=== PATIENT | male | born 1965 | race Caucasian/White ===

== ENCOUNTER 2025-07-30 10:53 | Inpatient (IN) | payer MEDICAID, SELFPAY ==
[2025-07-30] VITALS (7 sets, daily range): BP systolic 139–175; BP diastolic 97–114; PULSE 93–119; RESP 18–24; TEMP 36.6–37.6; O2SAT 92–99; BMI 23.7
--- NOTE | 2025-07-30 11:03 | EKG_ITS ---
[facility] (Formerly [facility]) Test Date: 2025-07-30 Pat Name: IZABELA BAHENA Department: Room: - Gender: Male Transport Pilot: : 1965 Requested By: Lisa Sanchez Order Number: [id number] Reading MD: Lisa Sanchez Measurements Intervals [place] Rate: 107 P: 53 TX: 182 QRS: -75 QRSD: 150 T: -6 QT: 427 QTc: 570 Interpretive Statements SINUS TACHYCARDIA POSSIBLE LEFT ATRIAL ENLARGEMENT [-0.1mV P-WAVE IN V1/V2] RIGHT BUNDLE BRANCH BLOCK [120+ ms QRS DURATION, UPRIGHT V1, 40+ ms S IN I/aVL/V4/V5/V6] INFERIOR MYOCARDIAL INFARCTION , OF INDETERMINATE AGE [40+ ms Q WAVE AND/OR ST/T ABNORMALITY IN II/aVF] No previous ECG available for comparison /store/S0/[id number].pdf
--- NOTE | 2025-07-30 11:06 | PC.NURSE ---
sachin brother in law [phone] helen sister [phone]
[2025-07-30] MEDS: levETIRAcetam INJ 100 MG/ML VIAL 5ML 1000 MG IVP (11:21)
[2025-07-30 11:24] LABS: Basophils # (Auto) 0.1 Thou/mm3 (0.0-0.2); Basophils % (Auto) 1 % (0-2.5); Eosinophils # (Auto) 0.0 Thou/mm3 (0.0-0.5); Eosinophils % (Auto) 0 % (0-10); Hematocrit 43.7 % (41.0-53.0); Hemoglobin 15.4 g/dL (13.5-16.0); Immature Granulocytes Auto 0.01 Thou/mm3 (0.00-0.00); Lymphocytes # (Auto) 1.2 Thou/mm3 (1.0-4.8); Lymphocytes % (Auto) 24 % (10-50); Mean Corpuscular HGB Conc 35.2 g/dl (31.0-37.0); Mean Corpuscular Hemoglobin 33.7 pg (25.0-35.0); Mean Corpuscular Volume 96 fL (80-100); Monocytes # (Auto) 0.7 Thou/mm3 (0.0-0.8); Monocytes % (Auto) 13 % (0-12); Neutrophils # (Auto) 3.0 Thou/mm3 (1.8-7.7); Neutrophils % (Auto) 61 % (37-80); Nucleated Red Blood Cell # 0.00 Thou/mm3 (0.00-0.00); Nucleated Red Blood Cell % 0 /100 WBC (0); RDW Standard Deviation 46.3 fL (35.1-43.9); Red Blood Count 4.57 Miln/mm3 (4.50-5.90); White Blood Count 5.0 Thou/mm3 (3.8-10.6)
[2025-07-30 11:40] LABS: Alanine Aminotransferase 55 U/L (10-49); Albumin, Serum 4.5 gm/dL (3.5-5.0); Albumin/Globulin Ratio 0.9 (1.2-2.2); Alkaline Phosphatase 126 U/L (46-116); Anion Gap 19 (7-16); Aspartate Amino Transferase 111 U/L (0-34); BUN/Creatinine Ratio 16 Ratio (12-20); Bilirubin,Total 2.6 mg/dL (0.3-1.2); Blood Urea Nitrogen 11 mg/dL (9-23); Calcium 9.6 mg/dL (8.3-10.6); Calcium (Corrected) 9.6 mg/dL (8.5-10.1); Carbon Dioxide 19.7 mMol/L (20.0-31.0); Chloride 96 mMol/L (98-107); Creatinine (Component) 0.7 mg/dL (0.6-1.3); Estimated Creatinine Clearance 122.5 mL/min (>60); Globulin 4.9 gm/dL (2.3-3.5); Glucose 140 mg/dL (74-106); Osmolality,Calculated 271 (275-295); Potassium 3.4 mMol/L (3.4-5.1); Sodium 135 mMol/L (136-145); Total Protein 9.4 gm/dL (5.7-8.2); Troponin I < 0.020 ng/mL (0.0-0.045); eGFR > 60 See Note
[2025-07-30 11:41] LABS: Platelet Count 67 Thou/mm3 (140-440)
--- NOTE | 2025-07-30 12:35 | PD.EDSEIZ ---
ED Seizures RME/HPI General Chief Complaint: Seizure Stated Complaint: SEIZURE Time Seen by Provider: 07/30/25 11:00 Arrival date/time: 07/30/25 10:53 Limitations: no limitations RME / HPI RME / HPI Narrative: 60 year old male with known history of seizures with medication noncompliance who presents today after experiencing a breakthrough seizure. The seizure lasted approximately 2 minutes and was witnessed by the patient's sister. There was no reported head injury or trauma during the event. Following the seizure, the patient became confused and was found to have urinated on themselves, but there were no further complaints or signs of distress. Patient denies headache, chest pain, or any other associated symptoms. Related Data Allergies Allergy/AdvReac Type Severity Reaction Status Date / Time ibuprofen Allergy Intermediate Hives Verified 07/30/25 11:12 Review of Systems Review of Systems Systems Reviewed: All systems reviewed, normal except as documented Past Medical History Past Medical History NEUROLOGIC: Positive Seizures CARDIAC: Positive Hypertension; Negative Congestive Heart Failure RESPIRATORY: Negative Chronic Obstructive Pulmonary Disease (COPD) GENITOURINARY: Negative Renal Disease ENDOCRINE: Negative Diabetes Mellitus Type 1 or Diabetes Mellitus Type 2 Social History SMOKING STATUS: Never smoker ED Exam General Limitations: Present no limitations General appearance: Present alert and other (chronically ill appearing , mildly confused ) Head Head exam: Present atraumatic Eye Eye exam: Present normal appearance, PERRL and EOMI ENT ENT exam: Present normal oropharynx, mucous membranes moist and other (poor oral dentition ) Neck Neck exam: Present normal inspection, full ROM and trachea midline Chest Chest inspection: Present normal inspection and symmetric chest wall rise Respiratory Respiratory exam: Present normal lung sounds bilaterally Cardiovascular Cardiovascular exam: Present regular rate, normal rhythm and normal heart sounds Abdominal Exam Abdominal exam: Present soft and normal bowel sounds Extremities Exam Extremities exam: Present normal inspection and full ROM Back Exam Back exam: Present normal inspection and full ROM Neurological Exam Neurological exam: Present alert, CN II-XII intact and other (mildly confused however GCS of 15. ) Psychiatric Psychiatric exam: Present normal affect and normal mood Skin Skin exam: Present warm, dry, intact and normal color Course Quality Measures none Orders Category Date Time Status EKG (ED ONLY) *Do not use* NOW Care 07/30/25 11:03 Completed EKG (ED Only) Stat Exams 07/30/25 11:03 Draft US abdomen limited Stat Exams 07/30/25 14:09 Completed CBC Stat Lab 07/30/25 11:10 Completed CMP [Comprehensive Metabolic Panel] Stat Lab 07/30/25 11:10 Completed CMP [Comprehensive Metabolic Panel] Stat Lab 07/30/25 16:29 Completed Drug Screen,Urine Stat Lab 07/30/25 13:22 Completed Troponin I Stat Lab 07/30/25 11:10 Completed UA, C/S IF [Urinalysis, C/S if Indicated] Stat Lab 07/30/25 13:22 Completed Acetaminophen Tab [Tylenol Tab] Med 07/30/25 14:08 Discontinued 650 mg PO X1 ONE LORazepam [Ativan Inj] Med 07/30/25 18:19 Discontinued 2 mg IVP X1 ONE Ringers Lactated 1000 ml [Lactated Ringers] 1,000 ml Med 07/30/25 14:11 Discontinued IV 999 mls/hr levETIRAcetam INJ [Keppra Inj] Med 07/30/25 11:03 Discontinued 1,000 mg IVP X1 ONE levETIRAcetam INJ [Keppra Inj] Med 07/30/25 17:58 Discontinued 1,500 mg .ROUTE .STK-MED ONE levETIRAcetam INJ [Keppra Inj] Med 07/30/25 18:05 Discontinued 1,500 mg IVP X1 ONE Vital Signs Vital signs: Vital Signs Temperature 98 F 07/30/25 10:58 Pulse Rate 108 H 07/30/25 10:58 Respiratory Rate 18 07/30/25 10:58 Blood Pressure 175/109 H 07/30/25 10:58 Pulse Oximetry (%) 98 07/30/25 10:58 Oxygen Delivery Method Room Air 07/30/25 10:58 Pulse ox is 98% on room air which is adequate. Seizure MDM Narrative MDM Narrative:: Patient is a 60-year-old male is in the emergency department with concerns for breakthrough seizure. Vital signs and exam as listed. Concern for medication noncompliance, electrolyte derangement, less likely hypoglycemia given patient blood glucose check greater than 100. Labs without any acute hematologic abnormality, no leukocytosis, patient with anion gap of 19, bicarb 19.7 T. bili 2.6 AST 111 ALT 55 alk phos 1 26 will provide patient with fluids ordered right upper quadrant ultrasound patient without any abdominal pain. Patient is positive for benzodiazepines. After period of observation patient remained hemodynamically stable not in distress without any recurrence of symptoms the patient was discharged. As patient was being wheeled out of the emergency department started having another seizure. Patient was started onto a gurney patient did not hit his head. Patient was placed back in a resuscitation room, Keppra was ordered, in the resuscitation room patient had another tonic-clonic seizure however stopped on his own before benzodiazepines could be given. Patient received an additional 1500 mg of Keppra. Patient signed out to oncoming provider pending CT brain and safe dispo Patient data External records reviewed:: [facility] previous records Clinical information provided by:: patient Social determinants that could affect healthcare access:: none Patient has the following chronic illnesses:: seizures with medication noncompliance How is presenting disease/condition affected by chronic disease/condition?: exacerbated by Evaluation data The following diagnostics were reviewed and interpreted by me:: lab results, radiology exam(s) and EKG tracing(s) Lab and/or radiology exams considered but not ordered:: None Interpretation Summary: Ordering Physician: Lisa Macario MD Date of Service: 07/30/25 Procedure(s): US abdomen limited Accession Number(s): [id number] cc: Suresh Bonilla MD; NO PRIMARY/FAMILY,PHYSICIAN; Lisa Macario MD~ EXAMINATION: US abdomen limited ORDERING PROVIDER: Lisa Macario MD HISTORY: hyperbilirubinemia TECHNIQUE: Multiplanar still ultrasonography of the right upper quadrant was performed using grayscale imaging, supplemented by color and spectral Doppler as needed. Limited study due to poor acoustic windows. COMPARISON: None. FINDINGS: Liver: Diffusely increased echogenicity Gallbladder: Dependent echogenic material. No wall thickening or pericholecystic fluid. Biliary system: No biliary ductal dilatation. Common bile duct: 0.3 cm. Pancreas: No obvious pancreatic head mass. Limited evaluation due to poor acoustic windows. Vascular: Normal hepatopetal flow in the portal vein. Other: No ascites or mass. IMPRESSION: Gallbladder sludge without sonographic findings for cholelithiasis or acute cholecystitis. Diffusely increased echogenicity of the liver, nonspecific, but can be seen with hepatic steatosis and other hepatic pathologies. Dictated By: Suresh Bonilla MD Signed By: <Electronically signed by Suresh Bonilla MD in OV> 07/30/25 1607 Medications / Prescriptions Medications or Prescriptions considered but not ordered:: None Medication administrations:: Medication Administration History Discontinued Medications Acetaminophen (Acetaminophen 325 Mg Tablet) 650 mg PO X1 ONE Stop: 07/30/25 14:09 Last Admin: 07/30/25 14:51 Dose: 650 mg Documented By: EF Lactated Ringer's (Lactated Ringers) 1,000 mls @ 999 mls/hr IV .Q1H1M ONE Stop: 07/30/25 15:11 Last Infusion: 07/30/25 16:00 Dose: Infused Documented By: Admin: 07/30/25 14:51 Dose: 999 mls/hr Documented By: EF Levetiracetam (Levetiracetam Inj 100 Mg/Ml Vial 5ml) 1,000 mg IVP X1 ONE Stop: 07/30/25 11:04 Last Admin: 07/30/25 11:21 Dose: 1,000 mg Documented By: EF Levetiracetam (Levetiracetam Inj 100 Mg/Ml Vial 5ml) Confirm Administered Dose 1,500 mg .ROUTE .STK-MED ONE Stop: 07/30/25 17:59 Last Admin: 07/30/25 18:09 Dose: Not Given Documented By: GM Non-Admin Reason: Duplicate Medication on eMAR Levetiracetam (Levetiracetam Inj 100 Mg/Ml Vial 5ml) 1,500 mg IVP X1 ONE Stop: 07/30/25 18:06 Last Admin: 07/30/25 18:10 Dose: 1,500 mg Documented By: EF Lorazepam (Lorazepam 2 Mg/Ml Vial) 2 mg IVP X1 ONE Stop: 07/30/25 18:20 Last Admin: 07/30/25 18:26 Dose: 2 mg Documented By: EF See above Consultations Consultation(s) initiated? (list below): No Diagnosis Seizure Differential Diagnosis: intractable seizure disorder, generalized seizure and epileptic seizure Most likely diagnosis given after review of the tests above:: Epileptic seizure Admission Indicated Admission indicated?: not indicated Admission Request Was there a request for admission?: No Disposition Plan Disposition Plan: Discharge Discharge Attestation Discharge Attestation: The patient and all family members were given an opportunity to ask questions and understood the discharge instructions. Discharge instructions specifically effects, indications for sooner follow up or return to the emergency department, and the expected course of current diagnosis. Patient condition: Stable Discharge Plan Plan Patient Disposition: HOME (Self Care) Problem List Clinical Impression: Epileptic seizure Patient/Caregiver Discharge Instructions Education Materials: Discharge Instructions for Epilepsy Additional Instructions: It is important that you take your medications as prescribed. Follow-up with primary doctor within 1 to 2 days. I also recommend that you do follow-up with your neurologist. Return immediately if you have worsening symptoms or new symptoms of concern Print Language: Paraguayan Stand Alone Forms: Marissa Award Info., Patient Portal Info Letter
[2025-07-30 12:39] LABS: Slide Review Platelets confirmed
[2025-07-30 13:31] LABS: Collection Type, Urine Clean Catch
[2025-07-30 13:39] LABS: Bilirubin,Urine Negative (Negative); Blood,Urine 2+ (Negative); Clarity,Urine Clear (Clear/Hazy); Color,Urine Yellow (Lt Yel-Yel); Culture Indicated,Urine Not Indicated; Glucose, Urine Negative (Negative); Hyaline Casts,Urine < 1 /hpf (0-1); Ketones,Urine 1+ (Negative); Leukocyte Esterase,Urine Negative (Negative); Nitrite,Urine Negative (Negative); PH,Urine 7.0 (5.0-7.0); Protein,Urine 3+ (Neg - Trace); RBC,Urine 4 /hpf (0-3); Specific Gravity,Urine 1.027 (1.001-1.035); Squamous Epithelial Cell,Urine < 1 /hpf (0-5); Urobilinogen,Urine 2.0 mg/dL (0.0-1.0); WBC,Urine 3 /hpf (0-5)
[2025-07-30 14:00] LABS: Amphetamine/Methamp Scrn,U Negative (Negative); Barbiturate Screen,Urine Negative (Negative); Benzodiazepines Screen,Urine Positive (Negative); Benzoylecgonine Screen, Ur Negative (Negative); Fentanyl Screen,Urine Negative (Negative); Opiate Screen,Urine Negative (Negative); THC Screen,Urine Negative (Negative)
--- NOTE | 2025-07-30 14:09 | XR_ITS ---
EXAMINATION: US abdomen limited ORDERING PROVIDER: Lisa Macario MD HISTORY: hyperbilirubinemia TECHNIQUE: Multiplanar still ultrasonography of the right upper quadrant was performed using grayscale imaging, supplemented by color and spectral Doppler as needed. Limited study due to poor acoustic windows. COMPARISON: None. FINDINGS: Liver: Diffusely increased echogenicity Gallbladder: Dependent echogenic material. No wall thickening or pericholecystic fluid. Biliary system: No biliary ductal dilatation. Common bile duct: 0.3 cm. Pancreas: No obvious pancreatic head mass. Limited evaluation due to poor acoustic windows. Vascular: Normal hepatopetal flow in the portal vein. Other: No ascites or mass. IMPRESSION: Gallbladder sludge without sonographic findings for cholelithiasis or acute cholecystitis. Diffusely increased echogenicity of the liver, nonspecific, but can be seen with hepatic steatosis and other hepatic pathologies.
[2025-07-30] MEDS: RINGERS LACTATED 1000 ML 1,000 ML 999 ML IV (14:51)
[2025-07-30] MEDS: ACETAMINOPHEN 325 MG TABLET 650 MG PO (14:51)
[2025-07-30 16:58] LABS: Alanine Aminotransferase 51 U/L (10-49); Albumin, Serum 4.2 gm/dL (3.5-5.0); Albumin/Globulin Ratio 0.9 (1.2-2.2); Alkaline Phosphatase 114 U/L (46-116); Anion Gap 11 (7-16); Aspartate Amino Transferase 104 U/L (0-34); BUN/Creatinine Ratio 17 Ratio (12-20); Bilirubin,Total 2.6 mg/dL (0.3-1.2); Blood Urea Nitrogen 10 mg/dL (9-23); Calcium 9.2 mg/dL (8.3-10.6); Calcium (Corrected) 9.2 mg/dL (8.5-10.1); Carbon Dioxide 26.0 mMol/L (20.0-31.0); Chloride 95 mMol/L (98-107); Creatinine (Component) 0.6 mg/dL (0.6-1.3); Estimated Creatinine Clearance 142.9 mL/min (>60); Globulin 4.8 gm/dL (2.3-3.5); Glucose 116 mg/dL (74-106); Osmolality,Calculated 264 (275-295); Potassium 4.2 mMol/L (3.4-5.1); Sodium 132 mMol/L (136-145); Total Protein 9.0 gm/dL (5.7-8.2); eGFR > 60 See Note
--- NOTE | 2025-07-30 17:55 | PC.NURSE ---
patient was being discharged at this time. was walking patient to the bathroom prior and patient started having a tonic-clonic seizure patient was caught and brought down slowly the whole way down no trauma/fall or head injruy patient put back into room for further work up.
--- NOTE | 2025-07-30 18:09 | PC.NURSE ---
@1800 - PT APPEARED TO BE HAVING ANOTHER FULL BODY SEIZURE WITH SHAKING MOVEMENT ALL OVER HIS EXTREMITIES. SEIZURE LASTED ABOUT 30 SECONDS. PT ALREADY IN BED DURING TIME OF THIS SEIZURE. THIS RN CALLED FOR HELP. DR. ZAMUDIO CAME AT BEDSIDE. VERBAL ORDERS RECEIVED. PT HOOKED UP TO MONITORS.
[2025-07-30] MEDS: levETIRAcetam INJ 100 MG/ML VIAL 5ML 1500 MG IVP (18:10)
--- NOTE | 2025-07-30 18:23 | PD.EDADDENDU ---
Emergency Room Addendum Addendum Narrative: I took over the care from previous shift physician, Dr. Macario, at 6 PM on 07/30/2025. See previous notes for complete H & P and ED course. I reviewed all diagnostic test results. Diagnoses include: Recurrent seizures Alcohol withdrawal I discussed the case with our hospitalist. About the presentation and exam and diagnostics and treatments here. And need of further care in the hospital. Agreed to accept the patient. Herman Rae MD
[2025-07-30] MEDS: LORazepam 2 MG/ML VIAL IVP (18:26)
--- NOTE | 2025-07-30 18:28 | XR_ITS ---
Examination: CT brain head without contrast. 2-D sagittal coronal reconstructions Date and time of exam: July 30, 2025, 1905 hours INDICATIONS: Altered mental status today CTDI: vol (mGy): 54.2 DLP: (mGycm): 1101 Technique: Multiple CT axial sections of the brain have been obtained, 5 mm slice thickness. Contrast has not been administered. 2-D sagittal, coronal reconstructions have been obtained Low dose protocols were performed. One or more of the following dose reduction techniques were used; automated exposure control, adjustment of the mA and/or KV according to patient size, use of iterative reconstruction technique. Findings: Mild ventricular enlargement. Intra-axial or extra-axial hemorrhage density is not seen. No mass effect or midline shift Basal cisterns are not remarkable. Fourth ventricle is midline. Cranial vault intact. Impression: Negative for acute hemorrhage, mass effect or midline shift
[2025-07-30 22:23] LABS: Magnesium 1.9 mg/dL (1.6-2.6)
[2025-07-30] MEDS: Magnesium Sulfate 2 GM Ivpb 2 GM/50 ML BAG IV (22:39)
[2025-07-30 23:35] LABS: Bilirubin,Direct 0.9 mg/dL (0.0-0.3); Creatine Kinase 935 U/L (34-171); Troponin I 0.041 ng/mL (0.0-0.045)
[2025-07-30 23:52] LABS: D-Dimer 652 ng/mL (<600)
--- NOTE | 2025-07-30 23:58 | XR_ITS ---
Examination: CTA chest with intravenous contrast 2-D reconstructions 3-D reconstructions, vascular Date and time of exam: July 31, 2025, 0023 hours INDICATIONS: Chest pain shortness of breath beginning 2 days ago CTDI: vol (mGy) 11.3 DLP: (mGycm) 511 Technique: Multiple axial sections of the thorax have been obtained. 3 mm slice thickness, from below the hemidiaphragms to above the apices of the lungs. Mediastinal and lung density settings have been obtained. 2-D sagittal and coronal reconstructions. 3-D angiographic renderings, 3-D volume renderings, 3D post processing, vascular maximum intensity projections obtained. Contrast administered is 100 cc Isovue-370. Low dose protocols were performed. One or more of the following dose reduction techniques were used; automated exposure control, adjustment of the mA and/or KV according to patient size, use of iterative reconstruction technique. Findings: No thoracic aortic aneurysmal dilatation No pulmonary artery emboli No paratracheal tracheobronchial or bronchopulmonary adenopathy Mild enlargement cardiac contour Mildly dilated bronchi throughout the lung hightower Small retrocardiac gastric hernia No pneumonia or pulmonary edema Cirrhosis, liver nodular in contour Gallstones Distended gallbladder Spleen is not enlarged Esophageal varices Perigastric varices No hydronephrosis IMPRESSION: Negative for pulmonary artery emboli Mild bronchiectasis Cirrhosis Esophageal varices Cholelithiasis
[2025-07-31] VITALS (13 sets, daily range): BP systolic 118–146; BP diastolic 62–105; PULSE 83–115; RESP 13–96; TEMP 36.6–38.6; O2SAT 94–97; BMI 24.3
--- NOTE | 2025-07-31 00:09 | ESHP_ITS ---
Documentation for date of: 07/31/25 [facility] History of Present Illness History of present illness: Patient is a poor historian 60-year-old male with a known history of seizures and medication noncompliance presents after experiencing two tonic-clonic seizures today. The first occurred this morning while the patient was watching TV and standing up; he reports suddenly seizing for approximately 2 minutes, falling to the floor, and hitting his head. He also experienced nausea and vomiting (four episodes) prior to the seizure. The patient had a second seizure around 1:00 PM, lasting another 2 minutes. The event was witnessed by his sister Leydi, and postictally, he was confused and noted urinating on himself. Patient experienced shortness of breath for a period of time that self resolved. Since the seizures, he denies any further symptoms, including headache, chest pain, or distress. Spoke to sister Leydi who reports the patient is noncompliant with his antiseizure medication. Patient is unsure of the medication name, though he mentions seeing his neurologist, Dr. Sarkar, a few days ago. He was refilled for medications but has yet to pick them up. According to the sister, the patient has not driven himself to medical appointments in the last 3 weeks and has been living with her during this time; he had been homeless prior to this arrangement. ED course: Initial vitals in ED include T98, BP 175/109, HR 108, RR 18, O2 sat 98% room air. Notable labs include WBC within normal range, platelets 67, sodium 132, creatinine 0.6, T. bili 2.6, D bili 0.9, AST 104, ALT 51, CK 935, Trope negative, vitamin B12 802. Urine tox positive for benzo that was given in ED. D-DIMER 652. CTPA showed no evidence of pulmonary thromboembolism. In ED patient received a total of 2.5 g of Keppra, LR 1 L, 2 g of magnesium, lorazepam 2 mg IV. Past medical history: As stated above. Allergies: Ibuprofen (hives) Family history: Noncontributory. Social history: Drinks six pack of 24 ounces daily, no smoking, no illicit drug use. Patient admitted for epileptic seizures. Review of Systems Review of Systems Narrative Review of Systems: All systems reviewed negative unless stated otherwise above. Exam Vital Signs Temp Pulse Resp BP Pulse Ox O2 Del Method 99.7 F 113 H 24 H 149/99 H 93 L Room Air 07/30/25 23:00 07/30/25 23:54 07/30/25 23:54 07/30/25 23:54 07/30/25 23:54 07/30/25 23:54 Narrative Exam General: AOx2, no acute distress, able to speak full sentences HEENT: NC/AT, mucous membranes moist, bilateral sclera anicteric Cardiovascular: regular rate and rhythm, S1/S2 present, no murmurs appreciated Pulmonary: clear to auscultation bilaterally, no rales/rhonchi/wheezes Abdominal: soft, non-tender, mild distention, umbilical hernia, no rebound/guarding, normal bowel sounds present Musculoskeletal: normal ROM, no peripheral edema Skin: warm and dry, intact, no rashes, Neuro: CN II-XII intact, no focal deficits Results: Labs 07/31/25 04:50 07/31/25 04:50 Labs: Short CBC 07/30/25 Range/Units 11:10 WBC 5.0 (3.8-10.6) Thou/mm3 Hgb 15.4 (13.5-16.0) g/dL Hct 43.7 (41.0-53.0) % Plt Count 67 L (140-440) Thou/mm3 BMP 07/30/25 07/30/25 11:10 16:29 Sodium 135 L 132 L Potassium 3.4 4.2 D Chloride 96 L 95 L Carbon Dioxide 19.7 L 26.0 BUN 11 10 Creatinine 0.7 0.6 Glucose 140 H 116 H Calcium 9.6 9.2 Cardiac Enzymes 07/30/25 07/30/25 Range/Units 11:10 22:56 Total Creatine Kinase 935 H (34-171) U/L Troponin I < 0.020 0.041 (0.0-0.045) ng/mL Liver Function 07/30/25 07/30/25 07/30/25 Range/Units 11:10 16:29 22:56 Total Bilirubin 2.6 H 2.6 H (0.3-1.2) mg/dL Direct Bilirubin Cancelled 0.9 H AST 111 H 104 H (0-34) U/L ALT 55 H 51 H (10-49) U/L Alkaline Phosphatase 126 H 114 (46-116) U/L Albumin 4.5 4.2 (3.5-5.0) gm/dL Urine 07/30/25 Range/Units 13:22 Urine Color Yellow (Lt Yel-Yel) Urine Clarity Clear (Clear/Hazy) Urine pH 7.0 (5.0-7.0) Ur Specific [place] 1.027 (1.001-1.035) Urine Protein 3+ A (Neg - Trace) Urine Glucose (UA) Negative (Negative) Quality Measures Quality Measures VTE prophylaxis Medications Home Medications and Allergies Home Medications ?Medication ?Instructions ?Recorded ?Confirmed ?Type Unobtainable 07/30/25 07/30/25 History Allergies Allergy/AdvReac Type Severity Reaction Status Date / Time ibuprofen Allergy Intermediate Hives Verified 07/30/25 11:12 Visit Medications Enoxaparin Sodium (Enoxaparin Sod Inj 40 Mg/0.4 Ml Syringe) 40 mg SC QDAY KELLY Stop: 08/14/25 08:59 Folic Acid (Folic Acid Inj 1 Mg/0.2 Ml) 1 mg IVP QDAY KELLY Stop: 08/30/25 00:09 Ondansetron HCl (Ondansetron Inj 2 Mg/Ml Inj 2 Ml) 4 mg IVP Q6H PRN; Protocol PRN Reason: NAUSEA OR VOMITING Stop: 08/29/25 23:52 Thiamine HCl (Thiamine Inj 100 Mg/Ml Vial 2 Ml) 500 mg IVP X1 ONE Stop: 07/31/25 00:05 Discontinued Medications Acetaminophen (Acetaminophen 325 Mg Tablet) 650 mg PO X1 ONE Stop: 07/30/25 14:09 Last Admin: 07/30/25 14:51 Dose: 650 mg Diazepam (Diazepam Inj 5 Mg/Ml Vial 2 Ml) 10 mg IVP X1 ONE Stop: 07/31/25 00:01 Lactated Ringer's (Lactated Ringers) 1,000 mls @ 999 mls/hr IV .Q1H1M ONE Stop: 07/30/25 15:11 Last Infusion: 07/30/25 16:00 Dose: Infused Magnesium Sulfate (Magnesium Sulfate Ivpb) 2 gm in 50 mls @ 25 mls/hr IV X1 ONE Stop: 07/30/25 23:49 Last Infusion: 07/30/25 22:55 Dose: 25 mls/hr Levetiracetam (Levetiracetam Inj 100 Mg/Ml Vial 5ml) 1,000 mg IVP X1 ONE Stop: 07/30/25 11:04 Last Admin: 07/30/25 11:21 Dose: 1,000 mg Levetiracetam (Levetiracetam Inj 100 Mg/Ml Vial 5ml) 1,500 mg IVP X1 ONE Stop: 07/30/25 18:06 Last Admin: 07/30/25 18:10 Dose: 1,500 mg Lorazepam (Lorazepam 2 Mg/Ml Vial) 2 mg IVP X1 ONE Stop: 07/30/25 18:20 Last Admin: 07/30/25 18:26 Dose: 2 mg Assessment & Plan Plan 60-year-old male with a known history of seizures and medication noncompliance presents after experiencing two tonic-clonic seizures today. Patient admitted for epileptic seizures. #Seizures #History of epilepsy Patient unsure what medication he takes and is noncompliant with medication Experienced two tonic-clonic seizures today In ED patient received a total of 2.5 g of Keppra Plan ? Keppra 500 mg twice daily ? Lorazepam for breakthrough seizures ? Seizure precautions ? Aspiration precautions ? In-house neurology consulted ? EEG ordered #Alcohol withdrawal #Chronic alcohol use Drinks six pack of 24 ounces daily Alcohol level on admission pending Last drink was yesterday CIWA at the time of ED presentation was 6, received diazepam 10 mg IV No concern of delirium tremens at this time No hallucinations at this time Will need to continue monitoring symptoms including hallucinations, restlessness, vital sign changes including tachycardia to monitor for withdrawal Given patient's very low platelet count and liver damage, it would be advisable to avoid using phenobarbital Vitamin B12 and folic acid levels within normal range Plan: ? CIWA protocol ? CIWA 2-6 --> lorazepam 0.5 mg p.o. every 2 hours as needed ? CIWA 7-11 --> lorazepam 2 mg IV every 2 hours as needed ? CIWA 12?20 --> lorazepam 4 mg IV every 2 hours as needed ? Chlordiazepoxide 25 mg p.o. 3 times daily ? Thiamine 500 mg IV x 1 followed by 100 mg IV daily ? Folic acid 1 mg IV daily ? Seizure precautions ? Aspiration precautions #Severe QTc prolongation #EKG concerning for PE EKG on arrival showed QTc 570 ms Patient tachycardic and hypoxic. Patient at risk for life-threatening arrhythmias, particularly torsades de points Plan ? Magnesium 2 g given ? Keep potassium above 4 and magnesium above 2 ? Telemetry ? Avoid QTc prolonging drugs ? EKG in a.m. ordered ? TSH level ordered #Thrombocytopenia DDx alcohol induced, liver disease, hypersplenism Initial platelet count 67 No active bleed Plan ? Monitor for bleeding ? Platelet count with daily labs #Hyperbilirubinemia #Transaminitis Chronic alcohol use history Acute hepatitis panel negative AST 204, ALT 51 T. bili 2.6, D bili 0.9 Abdominal ultrasound showed gallbladder sludge without sonographic findings for cholelithiasis or acute cholecystitis Plan ? Monitor for symptoms ? Monitor LFTs with daily Health Maintenance: Diet: N.p.o. GI prophylaxis: None DVT prophylaxis: Lovenox Antibiotics: None CODE STATUS: Full Disposition: Telemetry Case discussed with my attending Dr. Smith, and senior resident, Dr. Dilip Diehl MD PGY-1 Attending Provider Attestation/Addendum After examination of the patient and review of the clinical data I feel that this patient needs admission to the hospital for further treatment/evaluation. Plan of care discussed with patient and is in agreement. I Noemi Smith MD, attest that I was physically present for hogan portions of evaluation, and examined patient, labs and imagings and plan of care were discussed with IM residents team, and I agree with the findings and plans documented above.
[2025-07-31 00:43] LABS: Vitamin B12 802 pg/mL (211-911)
[2025-07-31] MEDS: FOLIC ACID INJ 1 MG/0.2 ML IVP ×2 (01:10→08:41)
[2025-07-31] MEDS: THIAMINE INJ 100 MG/ML VIAL 2 ML 500 MG IVP (01:10)
[2025-07-31] MEDS: DIAZEPAM INJ 5 MG/ML VIAL 2 ML 10 MG IVP (01:11)
--- NOTE | 2025-07-31 01:33 | PRELIM_ITS ---
CT angiogram of the chest with intravenous contrast (axial sections with sagittal and coronal reformats, 3D/MIP reconstructed images) July 31, 2025 0029 hours Clinical History: Concern for PE No prior study is available for comparison. Findings: There is no filling defect within the pulmonary artery divisions to suggest pulmonary thromboembolism. The mediastinum demonstrates no evidence of mass or lymphadenopathy. The thoracic aorta is tortuous, ectatic and demonstrates atheromatous calcification. Mild cardiomegaly is seen. Coronary artery ca lcification is noted. There is no pericardial effusion. A small hiatal hernia is present. There is mild wall thickening of the distal esophagus/ gastroesophageal junction, reflux esophagitis cannot be excluded. There is chronic obstructive pulmonary disease. Minimal streaky atelectasis is seen in the lungs bilaterally. No consolidation. No pleural effusion or pneumothorax. Note is made of azygous fissure. No pleural effusion or pneumothorax. Mild degenerative changes are identified in the spine. Mild to moderate compression of the mid thoracic vertebrae. There is an old compression fracture of L1 vertebra with about 60%-70% height loss The liver demonstrates nodular contour, suggestive of cirrhosis. There is a small hypodense lesion in the right lobe of the liver, of indeterminate etiology. The gallbladder is mildly distended and demonstrates multiple dependent calculi. No gallbladder wall thickening or pericholecystic fluid. Multiple prominent portomesenteric collaterals are seen. There is a large hernia in the anterior abdominal wall, incompletely imaged. Impression: No evidence of pulmonary thromboembolism Chronic obstructive pulmonary disease. Cirrhosis of the liver. Other findings as described Report Electronically Signed By: Alvaro Garcias 07/31/2025 1:33:00 AM [EST]
--- NOTE | 2025-07-31 02:08 | PC.NURSE ---
report given to floor RN-Neena
[2025-07-31 02:39] LABS: Folate 22.91 ng/mL (>5.38); Hepatitis A Antibody IgM Non Reactive (Non React); Hepatitis B Core Antibody IgM Non Reactive (Non React); Hepatitis B Surface Antigen Non Reactive (Non React); Hepatitis C Antibody Non Reactive (Non React)
[2025-07-31] MEDS: RINGERS LACTATED 1000 ML 1,000 ML 100 ML IV (02:51)
[2025-07-31] MEDS: ACETAMINOPHEN 325 MG TABLET 650 MG PO (04:51)
[2025-07-31] MEDS: LORazepam 2 MG/ML VIAL IVP ×2 (04:52→08:40)
--- NOTE | 2025-07-31 05:00 | EKG_ITS ---
[facility] Test Date: 2025-07-31 Pat Name: IZABELA BAHENA Department: Room: S267A Gender: Male Credit Risk Analyst: JOSE LUIS : 1965 Requested By: Alberto Diehl Order Number: [id number] Reading MD: Alberto Diehl Measurements Intervals [place] Rate: 102 P: 21 MS: 156 QRS: -86 QRSD: 150 T: -20 QT: 396 QTc: 516 Interpretive Statements SINUS TACHYCARDIA WITH OCCASIONAL VENTRICULAR PREMATURE COMPLEXES POSSIBLE LEFT ATRIAL ENLARGEMENT RIGHT BUNDLE BRANCH BLOCK LEFT ANTERIOR FASCICULAR BLOCK MODERATE T-WAVE ABNORMALITY, CONSIDER ANTEROLATERAL ISCHEMIA Compared to ECG 07/30/2025 11:24:51 Ventricular premature complex(es) now present Left anterior fascicular block now present T-wave abnormality now present Possible ischemia now present Myocardial infarct finding no longer present /store/S0/[id number]/ecg/[id number].pdf
--- NOTE | 2025-07-31 05:14 | RESP.EEG ---
EEG has been completed and is ready for MD interpretation.
[2025-07-31 05:34] LABS: Basophils # (Auto) 0.0 Thou/mm3 (0.0-0.2); Basophils % (Auto) 1 % (0-2.5); Eosinophils # (Auto) 0.0 Thou/mm3 (0.0-0.5); Eosinophils % (Auto) 0 % (0-10); Hematocrit 41.1 % (41.0-53.0); Hemoglobin 14.9 g/dL (13.5-16.0); Immature Granulocytes Auto 0.01 Thou/mm3 (0.00-0.00); Lymphocytes # (Auto) 1.2 Thou/mm3 (1.0-4.8); Lymphocytes % (Auto) 21 % (10-50); Mean Corpuscular HGB Conc 36.3 g/dl (31.0-37.0); Mean Corpuscular Hemoglobin 34.6 pg (25.0-35.0); Mean Corpuscular Volume 95 fL (80-100); Monocytes # (Auto) 0.9 Thou/mm3 (0.0-0.8); Monocytes % (Auto) 15 % (0-12); Neutrophils # (Auto) 3.5 Thou/mm3 (1.8-7.7); Neutrophils % (Auto) 62 % (37-80); Nucleated Red Blood Cell # 0.00 Thou/mm3 (0.00-0.00); Nucleated Red Blood Cell % 0 /100 WBC (0); RDW Standard Deviation 46.5 fL (35.1-43.9); Red Blood Count 4.31 Miln/mm3 (4.50-5.90); White Blood Count 5.6 Thou/mm3 (3.8-10.6)
[2025-07-31 05:39] LABS: Platelet Count 60 Thou/mm3 (140-440)
[2025-07-31 06:02] LABS: Slide Review Platelets confirmed
[2025-07-31 06:24] LABS: Alanine Aminotransferase 48 U/L (10-49); Albumin, Serum 4.1 gm/dL (3.5-5.0); Albumin/Globulin Ratio 0.9 (1.2-2.2); Alkaline Phosphatase 104 U/L (46-116); Anion Gap 13 (7-16); Aspartate Amino Transferase 119 U/L (0-34); BUN/Creatinine Ratio 13 Ratio (12-20); Bilirubin,Total 3.0 mg/dL (0.3-1.2); Blood Urea Nitrogen 8 mg/dL (9-23); Calcium 8.9 mg/dL (8.3-10.6); Calcium (Corrected) 8.9 mg/dL (8.5-10.1); Carbon Dioxide 21.3 mMol/L (20.0-31.0); Chloride 95 mMol/L (98-107); Creatinine (Component) 0.6 mg/dL (0.6-1.3); Estimated Creatinine Clearance 142.9 mL/min (>60); Globulin 4.7 gm/dL (2.3-3.5); Glucose 98 mg/dL (74-106); Magnesium 2.1 mg/dL (1.6-2.6); Osmolality,Calculated 257 (275-295); Phosphorous 2.7 mg/dL (2.4-5.1); Potassium 3.8 mMol/L (3.4-5.1); Sodium 129 mMol/L (136-145); Thyroid Stimulating Hormone 1.90 uIU/mL (0.55-4.78); Total Protein 8.8 gm/dL (5.7-8.2); eGFR > 60 See Note
--- NOTE | 2025-07-31 07:32 | ESPR_ITS ---
Documentation for date of: 07/31/25 Subjective Subjective Interval history: Mr. Singh is a 60 y/o male with PMH epilepsy, medication noncompliance, alchol use disorder (drinks 6 pack beer daily) who presented to the ED on 07/31 after two witnessed tonic clonic seizures that both aborted after 2 minutes without pharmaceutical intervention. In the ED patient had fever T max 101.4, HR 110, BP 130-170/90-110s. Labs significant for thrombocytopenia, hyponatremia, elevated total and direct bili, elevated D dimer. UDS + benzo. Given 2.5 g Keppra, 1L LR, 2g Mg, Lorazepam 2 mg IV. QTc prolonged 570 --> 516. Imaging showed hepatic steatosis, gallbladder sludge. CT head negative. CTA chest negative for PE. Patient evaluated at bedside. He has umbilical hernia, reducible, non TTP. Has b/l leg cramping. Reports that his older sister is sick, notes that he has a dry cough. Denies chills, recent illness, diarrhea, constipation, chest pain, abdominal pain, sore throat, headache. Pharmacy: [facility] in [place], . Tried to call but closed for the holiday. Exam Vital Signs Temp Pulse Resp BP Pulse Ox O2 Del Method 101.4 F H 103 H 14 139/100 H 95 Room Air 07/31/25 04:00 07/31/25 04:00 07/31/25 04:00 07/31/25 04:00 07/31/25 04:00 07/31/25 04:00 Narrative Exam General: No acute distress, disheveled, smells of urine Eye: PERRL, EOMI, normal conjunctiva, no scleral icterus HENT: Normocephalic, atraumatic, normal hearing, dry oral mucosa Neck: Supple, non-tender, no JVD, no lymphadenopathy Lungs: Clear to auscultation bilaterally, non-labored respirations, symmetric chest rise, no use of accessory muscles Heart: Normal S1 and S2, no S3 or S4 appreciated. Normal rate and regular rhythm, no murmurs, rubs gallops, or edema. Peripheral pulses intact bilaterally, capillary refill brisk distally Abdomen: Soft, non-tender, non-distended. Has umbilical hernia, reducible, no TTP Musculoskeletal: Normal range of motion and strength, no tenderness or swelling Skin: Skin is warm, dry, no rashes or lesions. Neurologic: Alert, awake and oriented x2. CN II-XII grossly intact. No focal neuro deficits. No signs of meningeal irritation noted. Psychiatric: Cooperative, appropriate mood and affect. Loose associations, poor insight and judgment Objective Labs 07/31/25 04:50 07/31/25 04:50 Labs: Laboratory Results - last 24 hr 07/30/25 07/30/25 07/30/25 11:10 13:22 16:29 WBC 5.0 RBC 4.57 Hgb 15.4 Hct 43.7 MCV 96 MCH 33.7 MCHC 35.2 RDW Std Deviation 46.3 H Plt Count 67 L Neut % (Auto) 61 Lymph % (Auto) 24 [place] % (Auto) 13 H Eos % (Auto) 0 Baso % (Auto) 1 Neut # (Auto) 3.0 Lymph # (Auto) 1.2 [place] # (Auto) 0.7 Eos # (Auto) 0.0 Baso # (Auto) 0.1 Immature Gran # (Auto) 0.01 H Absolute Nucleated RBC 0.00 Immature Gran % 0 Nucleated RBC % 0 D-Dimer Sodium 135 L 132 L Potassium 3.4 4.2 D Chloride 96 L 95 L Carbon Dioxide 19.7 L 26.0 Anion Gap 19 H 11 BUN 11 10 Creatinine 0.7 0.6 Estim Creat Clear Calc 122.5 142.9 eGFR > 60 > 60 BUN/Creatinine Ratio 16 17 Glucose 140 H 116 H Calculated Osmolality 271 L 264 L Calcium 9.6 9.2 Corrected Calcium 9.6 9.2 Phosphorus Magnesium 1.9 Total Bilirubin 2.6 H 2.6 H Direct Bilirubin Cancelled AST 111 H 104 H ALT 55 H 51 H Alkaline Phosphatase 126 H 114 Total Creatine Kinase Troponin I < 0.020 Total Protein 9.4 H 9.0 H Albumin 4.5 4.2 Globulin 4.9 H 4.8 H Albumin/Globulin Ratio 0.9 L 0.9 L Vitamin B12 Folate TSH Ur Collection Type Clean Catch Urine Color Yellow Urine Clarity Clear Urine pH 7.0 Ur Specific Vernal 1.027 Urine Protein 3+ A Urine Glucose (UA) Negative Urine Ketones 1+ A Urine Blood 2+ A Urine Nitrite Negative Urine Bilirubin Negative Urine Urobilinogen (Auto) 2.0 Ur Leukocyte Esterase Negative Urine RBC 4 H Urine WBC 3 Ur Squamous Epith Cells < 1 Urine Bacteria None Hyaline Casts < 1 Ur Culture Indicated? Not Indicated Urine Opiates Screen Negative Urine Fentanyl Screen Negative Ur Barbiturates Screen Negative U Amphetamin/Meth Scrn Negative U Benzodiazepines Scrn Positive A U Cocaine Metab Screen Negative U Marijuana (THC) Screen Negative Hepatitis A IgM Ab Hep Bs Antigen Hep B Core IgM Ab Hepatitis C Antibody Misc Test Result Platelets confirmed 07/30/25 07/31/25 22:56 04:50 WBC 5.6 RBC 4.31 L Hgb 14.9 Hct 41.1 MCV 95 MCH 34.6 MCHC 36.3 RDW Std Deviation 46.5 H Plt Count 60 L Neut % (Auto) 62 Lymph % (Auto) 21 [place] % (Auto) 15 H Eos % (Auto) 0 Baso % (Auto) 1 Neut # (Auto) 3.5 Lymph # (Auto) 1.2 [place] # (Auto) 0.9 H Eos # (Auto) 0.0 Baso # (Auto) 0.0 Immature Gran # (Auto) 0.01 H Absolute Nucleated RBC 0.00 Immature Gran % 0 Nucleated RBC % 0 D-Dimer 652 H Sodium 129 L Potassium 3.8 Chloride 95 L Carbon Dioxide 21.3 Anion Gap 13 BUN 8 L Creatinine 0.6 Estim Creat Clear Calc 142.9 eGFR > 60 BUN/Creatinine Ratio 13 Glucose 98 Calculated Osmolality 257 L Calcium 8.9 Corrected Calcium 8.9 Phosphorus 2.7 Magnesium 2.1 Total Bilirubin 3.0 H Direct Bilirubin 0.9 H AST 119 H ALT 48 Alkaline Phosphatase 104 Total Creatine Kinase 935 H Troponin I 0.041 Total Protein 8.8 H Albumin 4.1 Globulin 4.7 H Albumin/Globulin Ratio 0.9 L Vitamin B12 802 Folate 22.91 TSH 1.90 Ur Collection Type Urine Color Urine Clarity Urine pH Ur Specific Vern[place] Urine Protein Urine Glucose (UA) Urine Ketones Urine Blood Urine Nitrite Urine Bilirubin Urine Urobilinogen (Auto) Ur Leukocyte Esterase Urine RBC Urine WBC Ur Squamous Epith Cells Urine Bacteria Hyaline Casts Ur Culture Indicated? Urine Opiates Screen Urine Fentanyl Screen Ur Barbiturates Screen U Amphetamin/Meth Scrn U Benzodiazepines Scrn U Cocaine Metab Screen U Marijuana (THC) Screen Hepatitis A IgM Ab Non Reactive Hep Bs Antigen Non Reactive Hep B Core IgM Ab Non Reactive Hepatitis C Antibody Non Reactive Misc Test Result Platelets confirmed Quality Measures Quality Measures none Assessment & Plan Assessment Current Active Medications: Generic Name Dose Route Start Last Admin Trade Name Freq PRN Reason Stop Dose Admin Acetaminophen 650 mg 07/31/25 03:44 07/31/25 04:51 Acetaminophen 325 Mg Tablet PO 08/30/25 03:43 650 mg Q6HR PRN Administration PAIN (1-3) OR FEVER > 100.4 Chlordiazepoxide HCl 25 mg 07/31/25 03:10 07/31/25 03:37 Chlordiazepoxide Hcl 25 Mg Capsule PO 08/05/25 03:09 25 mg Q8H KELLY Administration Enoxaparin Sodium 40 mg 07/31/25 09:00 Enoxaparin Sod Inj 40 Mg/0.4 Ml Syringe SC 08/14/25 08:59 QDAY KELLY Folic Acid 1 mg 07/31/25 00:10 07/31/25 01:10 Folic Acid Inj 1 Mg/0.2 Ml IVP 08/30/25 00:09 1 mg QDAY KELLY Administration Lactated Ringer's 1,000 mls @ 100 mls/hr 07/31/25 01:45 07/31/25 02:51 Lactated Ringers IV 07/31/25 11:44 100 mls/hr .Q10H KELLY Administration Levetiracetam 500 mg 07/31/25 09:00 Levetiracetam Inj 100 Mg/Ml Vial 5ml IVP 08/30/25 08:59 Q12HR KELLY Lorazepam 0.5 mg 07/31/25 00:20 Lorazepam 0.5 Mg Tablet PO 08/05/25 00:19 Q2H PRN CIWA 2-6 Lorazepam 4 mg 07/31/25 00:38 Lorazepam 2 Mg/Ml Vial IVP 08/05/25 00:21 Q2H PRN CIWA 12-20 Lorazepam 2 mg 07/31/25 00:38 Lorazepam 2 Mg/Ml Vial IVP 08/05/25 00:20 Q2H PRN CIWA 7-11 Lorazepam 2 mg 07/31/25 01:29 Lorazepam 2 Mg/Ml Vial IVP Q5MIN PRN seizure breakthrough Ondansetron HCl 4 mg 07/30/25 23:53 Ondansetron Inj 2 Mg/Ml Inj 2 Ml IVP 08/29/25 23:52 Q6H PRN NAUSEA OR VOMITING Protocol Thiamine HCl 100 mg 07/31/25 09:00 Thiamine Inj 100 Mg/Ml Vial 2 Ml IVP 08/30/25 08:59 QDAY KELLY Plan Mr. Singh is a 60 y/o male with PMH epilepsy, medication noncompliance, alcohol use disorder who presented to the ED on 07/31 after two witnessed tonic clonic seizures that both aborted after 2 minutes without pharmaceutical intervention, return to baseline b/w seizures. #Epilepsy #Medication noncompliance Patient unsure what medication he takes and is noncompliant with medication. Tried calling Pharmacy ([facility] in [place], ), but closed for holiday Had 2 tonic clonic seizures at home, return to baseline between seizures, second seizure witnessed, both aborted at ~[address] minutes without pharmacological intervention CT head negative for acute hemorrhage, mass effect, midline shift. Cortical atrophy present In ED patient received a total of 2.5 g of Keppra Seizures most likely 2/2 medication noncompliance. Seizure most likely causing fever, elevated CK given no source of infection identified. Plan: - Consulted neurology, appreciate recs ? Keppra 500 mg twice daily - Maintenance IVF 100 mL/hr x1 bag ? Lorazepam 2 mg IV for breakthrough seizures ? EEG ordered ? Seizure precautions ? Aspiration precautions - CTM vitals - Pt to refrain from driving, confirmed patient does not drive or have a car #Alcohol use disorder #Hepatic steatosis #Transaminitis (mildly elevated, downtrending) #Hyperbilirubinemia #Thrombocytopenia Drinks six pack beer daily. Last drink was 07/30. UDS + benzo CIWA at the time of ED presentation was 6, received diazepam 10 mg IV Given patient's very low platelet count and liver damage, it would be advisable to avoid using phenobarbital No active s/sx of bleeding Mild to no coagulopathy (PT slightly prolonged but INR and PTT WNL) Hepatitis panel non reactive B12, folate, TSH WNL Abd US: gallbladder sludge. No cholelithiasis or cholecystitis. Hepatic steatosis Cirrhosis and esophageal varices seen on CTA chest Plan: ? CIWA protocol ? CIWA 2-6 --> lorazepam 0.5 mg PO q2h PRN ? CIWA 7-11 --> lorazepam 2 mg IV q2h PRN ? CIWA 12?20 --> lorazepam 4 mg IV q2h PRN ? Chlordiazepoxide 25 mg p.o. TID - Maintenance IVF 100 mL/hr x1 bag ? Thiamine 500 mg IV x 1 followed by 100 mg IV daily ? Folic acid 1 mg IV daily ? Seizure precautions ? Aspiration precautions - Pending blood alcohol level - Hold lovenox if plt <50 - CTM with daily CMP #Severe QTc prolongation EKG on arrival showed QTc 570 ms --> 516 Patient at risk for life-threatening arrhythmias, particularly torsades de points TSH WNL Plan ? Keep potassium above 4 and magnesium above 2 ? Telemetry ? Avoid QTc prolonging drugs #Elevated D dimer D dimer 652 CTA chest: No PE No s/sx DVT on exam Plan: - CTM for s/sx PE/DVT #SIRS - resolved Febrile, tachycardic. No leukocytosis, no end-organ damage, no source of infection Fever most likely 2/2 seizures Procal, CRP WNL. ESR high (55) Plan: - CTM vitals #Hypotonic hyponatremia Na 129, osm 257 Most likely hypovolemic, patient appears dry Given 1L IVF in ED Plan: - Maintenance IVF 100 mL/hr x1 bag - CTM with daily CMP #Umbilical hernia Reducible, no TTP Plan: - f/u outpatient Checklist Dispo: Pending EEG Lines: PIV Diet: Regular Bowel Reg: Polyethylene glycose 17 g PO daily VTE ppx: Lovenox 40 mg subQ daily (hold if plt <50) GI ppx: n/a Pain mgmt: Tylenol PRN Code status: full Case discussed with Dr. Vernon Celestin MD PGY1 Attending Provider Attestation/Addendum I have seen and examined the patient. I was physically present for the hogan portions of the services provided including history, physical exam, diagnosis, treatment plans and orders. I agree with assessment and plan of care as documented by residents. Patient is a 60 years old male with past medical history of seizure disorder, alcohol abuse, medication noncompliance who presented to the ED after an breakthrough seizures. He was admitted overnight for management of breakthrough seizure, alcohol abuse with concern for withdrawal. At bedside this morning, patient is sleepy, wakes up on calling but tends to go back to sleep right away. Confused, oriented x 2, able to answer some simple questions only. Patient had episode of fever with temperature 101.4 ?F but no apparent source of infection could be identified, UA was negative for pyuria, chest CTA did not show any pneumonia, head CT was negative for acute hemorrhage mass effect or midline shift, abdominal ultrasound showed gallbladder sludge but no cholecystitis. Patient's CRP is also negative along with procalcitonin. We will hold off on antibiotics for now and monitor his vitals closely. If he starts having another febrile episode, we will consider antibiotics and investigate further for source of infection. Has sodium of 129, we will continue with normal saline at 100 cc/h. Continues to be on Keppra 500 twice daily, awaiting EEG results. Currently on thiamine, folate and CIWA protocol for alcoholism and potential for alcohol withdrawal. Patient noted to have QTc prolongation, we will maintain his electrolytes. Also noted to have T wave changes in the EKG, but troponin has been negative x 3, patient does not have chest pain. Neurology following closely, appreciate recommendations. Even though this this note was carefully revised there may still be minor errors in production supervisor trainee due to voice recognition software. Tahir Junior MD
[2025-07-31 08:20] LABS: Troponin I 0.029 ng/mL (0.0-0.045)
[2025-07-31] MEDS: levETIRAcetam INJ 100 MG/ML VIAL 5ML 500 MG IVP ×2 (08:39→20:01)
[2025-07-31] MEDS: ENOXAPARIN SOD INJ 40 MG/0.4 ML SYRINGE SC (08:42)
[2025-07-31] MEDS: THIAMINE INJ 100 MG/ML VIAL 2 ML IVP (08:43)
--- NOTE | 2025-07-31 09:07 | ESPR_ITS ---
Tele Neuro Progress Note Progress Note Date 07/31/25 [facility] TeleNeurology Consult Services Routine Consult New Patient Name:???Luke Singh Date of :???1965 Identification Number:??? Date of Service:???07/31/2025 08:16:05 Diagnosis?G40.89 - Other seizures Impression Seizures -Known history of seizures follows with neurology extensive history of medication noncompliance - Patient also with heavy alcohol use and hepatic impairment Toxic-Metabolic Encephalopathy Received a load of Keppra 2000 mg milligrams in the ER CT head without acute findings Pending EEG Recommendations: Resume Keppra 500 mg twice daily Discussed to refrain from driving, confirmed patient does not drive or have a car, maintain seizure precautions to avoid scenarios that would put oneself or others in harm if they were to have a seizure such as swimming alone, using heavy machinery, climbing ladders etc.. Appreciate primary team with potential assistance with aiding with medication compliance [facility] Neurology will peripherally follow for EEG results, low suspicion for abnormality, if without acute findings will sign off, if with acute findings please call. Chief Complaint: Seizures History of Present Illness: Patient is a 60 year old Male. Patient with known history of seizures and medication noncompliance presenting for 2 tonic-clonic seizures lasting less than 2 minutes. Of note did have nausea and vomiting prior to the seizures. Initial seizure was yesterday morning and second 1 was yesterday afternoon. Second event was witnessed by the sister and noted urinary incontinence. Patient was somewhat postictal with lethargy afterwards but did return to baseline somewhat soon. Patient admits medication noncompliance. Did see a neurologist reportedly recently and did not curing pickling packer medications apparently the patient has been living with his sister recently and he had been homeless prior to this. Of note patient does drink 6 pack of alcohol daily. ? Past Medical History: ?There is no history of Stroke Medications: No Anticoagulant use? No Antiplatelet use Reviewed EMR for current medications Allergies:? Reviewed Social History: Alcohol Use: Yes Family History: There is no family history of premature cerebrovascular disease pertinent to this consultation ROS : 14 Points Review of Systems was performed and was negative except mentioned in HPI. Past Surgical History: There Is No Surgical History Contributory To Today?s Visit Examination Neuro Exam: General:?Oriented, Time, Place, Person lethargic Speech:?Dysarthric: at times falls asleep and speech is slurred Language:?Intact: Face:?Symmetric: ? This consult was conducted in real time using interactive audio and video technology. Patient was informed of the technology being used for this visit and agreed to proceed. Patient located in hospital and provider located at home/office setting. Telehealth Neurology consultation was provided. I spent 35 minutes providing telehealth care. This includes time spent for face to face visit via telemedicine, review of medical records, imaging studies and discussion of findings with providers, the patient and/or family. Dr Pamela Rowe [facility] For Inpatient follow-up with [facility] physician please call [facility] at . As we are not an outpatient service for any post hospital discharge needs please contact the hospital for assistance. If you have any questions for the [facility] physicians or need to reconsult for clinical or diagnostic changes please contact us via [facility] at Signature :?Pamela Rowe Most Recent Vital Signs Last Vital Signs Temp 99.0 F 07/31/25 08:00 Pulse 104 H 07/31/25 08:00 Resp 27 H 07/31/25 08:00 BP 132/94 H 07/31/25 08:00 Pulse Ox 94 L 07/31/25 08:00 O2 Del Method Room Air 07/31/25 08:00 Laboratory-Coagulation Panel D-Dimer 652 ng/mL (<600) H 07/30/25 22:56
[2025-07-31 09:34] LABS: INR 1.3 (0.9-1.3); Partial Thromboplastin Time 26.7 Seconds (22.0-36.0); Prothrombin Time 13.2 Seconds (9.0-12.2)
[2025-07-31 10:19] LABS: C-Reactive Protein < 0.5 mg/dL (0.0-0.9); Procalcitonin 0.14 ng/ml (0.0-0.49)
[2025-07-31 10:32] LABS: Sed Rate (ESR) 55 mm/hr (0-20)
[2025-07-31] MEDS: POLYETHYLENE GLYCOL 17 GM PACKET PO (11:39)
[2025-07-31 12:19] LABS: Alcohol, Blood Medical < 3.0 mg/dL (0-10.0)
--- NOTE | 2025-07-31 13:35 | PC.SS ---
SS attempted to meet with patient 3 X but was unsuccessful. SS spoke to patient's sister, Sharona Singh regarding his d/c plan. Pt is alert but confused. Pt was admitted for Seizures. Sister states pt has been staying with his sister, Nancy Singh and her . Sister confirmed demographic and contact information is correct on facesheet. Pt ambulates independently without assistance or DME. Pt is ok with all ADLs. Patient's sister, Sharona Singh explained she is patient's emergency contact or patient's brother in law, Rojas Garces. Patient will return home upon d/c and sister can provide transportation. D/C plan: Return home Next of Kin: Sharona Singh, sister, phone# [phone] Address: Correct on facesheet
[2025-07-31] MEDS: LORazepam 2 MG/ML VIAL 4 MG IVP ×2 (19:47→21:51)
[2025-08-01] VITALS (8 sets, daily range): BP systolic 112–153; BP diastolic 64–100; PULSE 75–112; RESP 18–99; TEMP 36.6–37.4; O2SAT 95–99; BMI 23.6
[2025-08-01] MEDS: LORazepam 2 MG/ML VIAL 4 MG IVP (00:17)
[2025-08-01] MEDS: ACETAMINOPHEN 325 MG TABLET 650 MG PO (02:58)
[2025-08-01 06:17] LABS: Basophils # (Auto) 0.1 Thou/mm3 (0.0-0.2); Basophils % (Auto) 2 % (0-2.5); Eosinophils # (Auto) 0.1 Thou/mm3 (0.0-0.5); Eosinophils % (Auto) 2 % (0-10); Hematocrit 41.3 % (41.0-53.0); Hemoglobin 14.5 g/dL (13.5-16.0); Immature Granulocytes Auto 0.01 Thou/mm3 (0.00-0.00); Lymphocytes # (Auto) 1.0 Thou/mm3 (1.0-4.8); Lymphocytes % (Auto) 19 % (10-50); Mean Corpuscular HGB Conc 35.1 g/dl (31.0-37.0); Mean Corpuscular Hemoglobin 33.6 pg (25.0-35.0); Mean Corpuscular Volume 96 fL (80-100); Monocytes # (Auto) 0.8 Thou/mm3 (0.0-0.8); Monocytes % (Auto) 16 % (0-12); Neutrophils # (Auto) 3.2 Thou/mm3 (1.8-7.7); Neutrophils % (Auto) 62 % (37-80); Nucleated Red Blood Cell # 0.00 Thou/mm3 (0.00-0.00); Nucleated Red Blood Cell % 0 /100 WBC (0); Platelet Count 59 Thou/mm3 (140-440); RDW Standard Deviation 46.0 fL (35.1-43.9); Red Blood Count 4.31 Miln/mm3 (4.50-5.90); White Blood Count 5.1 Thou/mm3 (3.8-10.6)
[2025-08-01 08:04] LABS: Alanine Aminotransferase 49 U/L (10-49); Albumin, Serum 4.2 gm/dL (3.5-5.0); Albumin/Globulin Ratio 0.9 (1.2-2.2); Alkaline Phosphatase 105 U/L (46-116); Anion Gap 11 (7-16); Aspartate Amino Transferase 129 U/L (0-34); BUN/Creatinine Ratio 19 Ratio (12-20); Bilirubin,Total 2.9 mg/dL (0.3-1.2); Blood Urea Nitrogen 13 mg/dL (9-23); Calcium 9.4 mg/dL (8.3-10.6); Calcium (Corrected) 9.4 mg/dL (8.5-10.1); Carbon Dioxide 24.4 mMol/L (20.0-31.0); Chloride 101 mMol/L (98-107); Creatinine (Component) 0.7 mg/dL (0.6-1.3); Estimated Creatinine Clearance 122.5 mL/min (>60); Globulin 4.6 gm/dL (2.3-3.5); Glucose 92 mg/dL (74-106); Magnesium 1.9 mg/dL (1.6-2.6); Osmolality,Calculated 272 (275-295); Phosphorous 3.1 mg/dL (2.4-5.1); Potassium 3.6 mMol/L (3.4-5.1); Sodium 136 mMol/L (136-145); Total Protein 8.8 gm/dL (5.7-8.2); eGFR > 60 See Note
[2025-08-01] MEDS: POLYETHYLENE GLYCOL 17 GM PACKET PO (08:35)
[2025-08-01] MEDS: levETIRAcetam INJ 100 MG/ML VIAL 5ML 500 MG IVP ×2 (08:36→20:36)
[2025-08-01] MEDS: ENOXAPARIN SOD INJ 40 MG/0.4 ML SYRINGE SC (08:36)
[2025-08-01] MEDS: FOLIC ACID INJ 1 MG/0.2 ML IVP (08:36)
[2025-08-01] MEDS: THIAMINE INJ 100 MG/ML VIAL 2 ML IVP (08:37)
--- NOTE | 2025-08-01 09:39 | EKG_ITS ---
[facility] Test Date: 2025-08-01 Pat Name: IZABELA BAHENA Department: Room: S267A Gender: Male Pi/Senior Research Associate: MARTHA : 1965 Requested By: Donnie Esteban Order Number: [id number] Reading MD: Donnie Esteban Measurements Intervals [place] Rate: 98 P: 12 VA: 160 QRS: 266 QRSD: 154 T: -35 QT: 408 QTc: 523 Interpretive Statements SINUS RHYTHM POSSIBLE LEFT ATRIAL ENLARGEMENT MARKED RIGHT AXIS DEVIATION RIGHT BUNDLE BRANCH BLOCK MODERATE T-WAVE ABNORMALITY, CONSIDER LATERAL ISCHEMIA MODERATE T-WAVE ABNORMALITY, CONSIDER INFERIOR ISCHEMIA Compared to ECG 07/31/2025 05:23:43 Right-axis deviation now present Sinus tachycardia no longer present Ventricular premature complex(es) no longer present Left anterior fascicular block no longer present T-wave abnormality still present Possible ischemia still present /store/S0/[id number]/[id number]
--- NOTE | 2025-08-01 10:22 | PC.SS ---
rounding note: Patient documentation shows he is altered today. Notes indicate patient was homeless recently and was temporarily staying with his sister. Patient is also listed as self pay. Financial counselors not available today. SS will follow up with financial counselor for HPE or [employer]. Neuro consulting.
--- NOTE | 2025-08-01 10:42 | PD.TNEUROPRO ---
Tele Neuro Progress Note Progress Note Date 08/01/25 [facility] TeleNeurology Consult Services Routine Consult Follow-Up Patient Name:???Luke Singh Date of :???1965 Identification Number:??? Date of Service:???08/01/2025 10:08:39 Diagnosis?G40.89 - Other seizures Impression Breakthrough Seizures, no further clinical events -Known Hx of seizures has a neurologist extensive history of medication noncompliance - Patient also with heavy alcohol use and hepatic impairment - Received a load of Keppra 2000 mg milligrams in the ER Toxic-Metabolic Encephalopathy Severe alcohol withdrawal - CIWA continues to be very high overnight was 14, receiving Ativan and Librium likely contributing to mentation CT head without acute findings I did touch base with the primary team Dr. Esteban to possibly consider LP, felt that fever source was likely from gastroenteritis and alcohol withdrawal. Reported that mentation was better earlier this morning but likely sedated from Librium and Ativan due to very high CIWA. Plan: Resume Keppra 500 mg twice daily Recommendations: Initial attempt at EEG unsuccessful due to patient agitation, will attempt to obtain again if without success will have to clinically monitor for seizures which is reasonable as his episodes have been clinical Neurology will continue to peripherally follow for EEG. If unable to be obtained or without acute findings will sign off. Subjective Patient more lethargic today. Does respond to questions. ? Examination Neuro Exam: General:?Oriented, Person lethargic, says incorrect place and time Speech:?Dysarthric: falls asleep and speech is slurred Language:?Intact: Face:?Symmetric: Motor Exam:?Moving all extremities to stimuli no clear paresis will not formally participate with strength testing Sensation:?Intact: ? This consult was conducted in real time using interactive audio and video technology. Patient was informed of the technology being used for this visit and agreed to proceed. Patient located in hospital and provider located at home/office setting. Telehealth Neurology consultation was provided. I spent 35 minutes providing telehealth care. This includes time spent for face to face visit via telemedicine, review of medical records, imaging studies and discussion of findings with providers, the patient and/or family. Dr Pamela Rowe [facility] For Inpatient follow-up with [facility] physician please call [facility] at . As we are not an outpatient service for any post hospital discharge needs please contact the hospital for assistance. If you have any questions for the [facility] physicians or need to reconsult for clinical or diagnostic changes please contact us via [facility] at Signature :?Pamela Rowe Most Recent Vital Signs Last Vital Signs Temp 98.4 F 08/01/25 08:00 Pulse 82 08/01/25 08:00 Resp 18 08/01/25 08:00 BP 130/96 H 08/01/25 08:00 Pulse Ox 96 08/01/25 08:00 O2 Del Method Room Air 08/01/25 08:00 Laboratory-Coagulation Panel PT 13.2 Seconds (9.0-12.2) H 07/31/25 08:29 INR 1.3 (0.9-1.3) 07/31/25 08:29 APTT 26.7 Seconds (22.0-36.0) 07/31/25 08:29 D-Dimer 652 ng/mL (<600) H 07/30/25 22:56
[2025-08-01 12:33] LABS: Slide Review Platelets confirmed
--- NOTE | 2025-08-01 15:52 | PD.RESPRO ---
Documentation for date of: 08/01/25 Subjective Subjective Interval history: No acute overnight events, Pt is seen and examined at bedside. Pt is very somnolent and barely able to answer questions. Pt also has slurred speech. vitals are stable, labs are reviewed. Zofran is discontinued due to pt's prolonged QTC, will repeat EKG for tomorrow morning Exam Vital Signs Temp Pulse Resp BP Pulse Ox O2 Del Method 98.1 F 85 24 H 130/98 H 96 Room Air 08/01/25 12:00 08/01/25 12:00 08/01/25 12:00 08/01/25 12:00 08/01/25 12:00 08/01/25 12:00 Narrative Exam GENERAL: A&Ox3 but very somnolent . Awake, Not in acute distress NEURO: no focal neurological deficits HEENT: Atraumatic, Normocephalic. mucous membranes moist. Eyes open, symmetrical, & clear HEART: Normal Heart Sounds LUNGS: Clear to auscultation with no wheezing or crackles. ABDOMEN: soft, non-distended, non-tender, bowel sounds heard, no guarding or rebound tenderness, large reducible umbilical hernia SKIN: No Rash or ecchymoses EXTREMITIES: No edema, tenderness, able to move all 4 extremities, pedal pulses palpated Objective Labs 08/02/25 00:04 08/02/25 00:04 Labs: Laboratory Results - last 24 hr 08/01/25 08/01/25 05:15 07:05 WBC 5.1 RBC 4.31 L Hgb 14.5 Hct 41.3 MCV 96 MCH 33.6 MCHC 35.1 RDW Std Deviation 46.0 H Plt Count 59 L Neut % (Auto) 62 Lymph % (Auto) 19 Donley % (Auto) 16 H Eos % (Auto) 2 Baso % (Auto) 2 Neut # (Auto) 3.2 Lymph # (Auto) 1.0 Donley # (Auto) 0.8 Eos # (Auto) 0.1 Baso # (Auto) 0.1 Immature Gran # (Auto) 0.01 H Absolute Nucleated RBC 0.00 Immature Gran % 0 Nucleated RBC % 0 Sodium 136 Potassium 3.6 Chloride 101 Carbon Dioxide 24.4 Anion Gap 11 BUN 13 Creatinine 0.7 Estim Creat Clear Calc 122.5 eGFR > 60 BUN/Creatinine Ratio 19 Glucose 92 Calculated Osmolality 272 L Calcium 9.4 Corrected Calcium 9.4 Phosphorus 3.1 Magnesium 1.9 Total Bilirubin 2.9 H AST 129 H ALT 49 Alkaline Phosphatase 105 Total Protein 8.8 H Albumin 4.2 Globulin 4.6 H Albumin/Globulin Ratio 0.9 L Misc Test Result Platelets confirmed Quality Measures Quality Measures VTE prophylaxis Assessment & Plan Assessment Current Active Medications: Generic Name Dose Route Start Last Admin Trade Name Freq PRN Reason Stop Dose Admin Acetaminophen 650 mg 07/31/25 03:44 08/01/25 02:58 Acetaminophen 325 Mg Tablet PO 08/30/25 03:43 650 mg Q6HR PRN Administration PAIN (1-3) OR FEVER > 100.4 Chlordiazepoxide HCl 25 mg 07/31/25 03:10 08/01/25 11:46 Chlordiazepoxide Hcl 25 Mg Capsule PO 08/05/25 03:09 Not Given On Hold: 08/01/25 15:31 Q8H KELLY Enoxaparin Sodium 40 mg 07/31/25 09:00 08/01/25 08:36 Enoxaparin Sod Inj 40 Mg/0.4 Ml Syringe SC 08/14/25 08:59 40 mg QDAY KELLY Administration Folic Acid 1 mg 07/31/25 00:10 08/01/25 08:36 Folic Acid Inj 1 Mg/0.2 Ml IVP 08/30/25 00:09 1 mg QDAY KELLY Administration Levetiracetam 500 mg 07/31/25 09:00 08/01/25 08:36 Levetiracetam Inj 100 Mg/Ml Vial 5ml IVP 08/30/25 08:59 500 mg Q12HR KELLY Administration Lorazepam 0.5 mg 07/31/25 00:20 07/31/25 16:54 Lorazepam 0.5 Mg Tablet PO 08/05/25 00:19 0.5 mg Q2H PRN Administration CIWA 2-6 Lorazepam 2 mg 07/31/25 01:29 Lorazepam 2 Mg/Ml Vial IVP Q5MIN PRN seizure breakthrough Lorazepam 2 mg 08/01/25 15:31 Lorazepam 2 Mg/Ml Vial IVP 08/05/25 00:21 Q2H PRN CIWA 12-20 Lorazepam 1 mg 08/01/25 15:31 Lorazepam 2 Mg/Ml Vial IVP 08/05/25 00:20 Q2H PRN CIWA 7-11 Polyethylene Glycol 17 gm 07/31/25 11:45 08/01/25 08:35 Polyethylene Glycol 17 Gm Packet PO 08/30/25 11:44 17 gm QDAY KELLY Administration Thiamine HCl 100 mg 07/31/25 09:00 08/01/25 08:37 Thiamine Inj 100 Mg/Ml Vial 2 Ml IVP 08/30/25 08:59 100 mg QDAY KELLY Administration Plan Mr. Singh is a 60 y/o male with PMH epilepsy, medication noncompliance, alcohol use disorder who presented to the ED on 07/31 after two witnessed tonic clonic seizures that both aborted after 2 minutes without pharmaceutical intervention, return to baseline b/w seizures. #Epilepsy #Medication noncompliance Patient unsure what medication he takes and is noncompliant with medication. Tried calling Pharmacy ([facility] in [place], ), but closed for holiday Had 2 tonic clonic seizures at home, return to baseline between seizures, second seizure witnessed, both aborted at ~[address] intervention [address] head negative for acute hemorrhage, mass effect, midline shift. Cortical atrophy present In ED patient received a total of 2.5 g of Keppra Seizures most likely 2/2 medication noncompliance. Seizure most likely causing fever, elevated CK given no source of infection identified. Plan: - Consulted neurology, appreciate recs ? Keppra 500 mg twice daily - Maintenance IVF 100 mL/hr x1 bag ? Lorazepam 2 mg IV for breakthrough seizures ?Repeat EEG ordered as the first one was inconclusive ? Seizure precautions ? Aspiration precautions - CTM vitals - Pt to refrain from driving, confirmed patient does not drive or have a car #Alcohol use disorder #Hepatic steatosis #Transaminitis (mildly elevated, downtrending) #Hyperbilirubinemia #Thrombocytopenia Drinks six pack beer daily. Last drink was 07/30. UDS + benzo CIWA at the time of ED presentation was 6, received diazepam 10 mg IV Given patient's very low platelet count and liver damage, it would be advisable to avoid using phenobarbital No active s/sx of bleeding Mild to no coagulopathy (PT slightly prolonged but INR and PTT WNL) Hepatitis panel non reactive B12, folate, TSH WNL Abd US: gallbladder sludge. No cholelithiasis or cholecystitis. Hepatic steatosis Cirrhosis and esophageal varices seen on CTA chest Plan: ? CIWA protocol ? CIWA 2-6 --> lorazepam 0.5 mg PO q2h PRN ? CIWA 7-11 --> lorazepam 1 mg IV q2h PRN ? CIWA 12?20 --> lorazepam 2 mg IV q2h PRN ? Chlordiazepoxide 25 mg is on hold due to pt's somnolence - Maintenance IVF 100 mL/hr x1 bag given on admission ? Thiamine 500 mg IV x 1 followed by 100 mg IV daily ? Folic acid 1 mg IV daily ? Seizure precautions ? Aspiration precautions - blood alcohol level <3 - Hold lovenox if plt <50 - CTM with daily CMP #Severe QTc prolongation EKG on arrival showed QTc 570 ms --> 516 Patient at risk for life-threatening arrhythmias, particularly torsades de points TSH WNL Plan ? Keep potassium above 4 and magnesium above 2 ? Telemetry ? Avoid QTc prolonging drugs #Elevated D dimer D dimer 652 CTA chest: No PE No s/sx DVT on exam Plan: - CTM for s/sx PE/DVT #SIRS - resolved Febrile, tachycardic. No leukocytosis, no end-organ damage, no source of infection Fever most likely 2/2 seizures Procal, CRP WNL. ESR high (55) Plan: - CTM vitals #Hypotonic hyponatremia Na 129, osm 257 Most likely hypovolemic, patient appears dry Given 1L IVF in ED Plan: - Maintenance IVF 100 mL/hr x1 bag - CTM with daily CMP #Umbilical hernia Reducible, no TTP Plan: - f/u outpatient Checklist Dispo: Pending EEG Lines: PIV Diet: Regular Bowel Reg: Polyethylene glycose 17 g PO daily VTE ppx: Lovenox 40 mg subQ daily (hold if plt <50) GI ppx: n/a Pain mgmt: Tylenol PRN Code status: full Assessment and plan discussed with my attending physician Dr. Vernon Esteban (PGY-2)- Internal medicine resident Attending Provider Attestation/Addendum I have seen and examined the patient. I was physically present for the hogan portions of the services provided including history, physical exam, diagnosis, treatment plans and orders. I agree with assessment and plan of care as documented by residents. Even though this this note was carefully revised there may still be minor errors in business development manager due to voice recognition software. Tahir Junior MD
[2025-08-02] VITALS (8 sets, daily range): BP systolic 114–146; BP diastolic 81–100; PULSE 74–105; RESP 14–100; TEMP 36.2–37; O2SAT 94–99; BMI 23.4
[2025-08-02 00:23] LABS: Chloride,Urine Random < 20.0 mMol/L (55.0-125.0); Potassium,Urine Random 29 mMol/L (12-62); Sodium,Urine Random 18.9 mMol/L (20.0-110.0)
[2025-08-02] MEDS: LORazepam 2 MG/ML VIAL 1 MG IVP (04:10)
--- NOTE | 2025-08-02 04:18 | RESP.EEG ---
Repeat EEG has been completed and is ready for MD interpretation. NOTE: Pt was being uncooperative and noncompliant by constantly moving and talking during exam.
[2025-08-02 06:38] LABS: Basophils # (Auto) 0.1 Thou/mm3 (0.0-0.2); Basophils % (Auto) 2 % (0-2.5); Eosinophils # (Auto) 0.2 Thou/mm3 (0.0-0.5); Eosinophils % (Auto) 4 % (0-10); Hematocrit 41.9 % (41.0-53.0); Hemoglobin 14.2 g/dL (13.5-16.0); Immature Granulocytes Auto 0.01 Thou/mm3 (0.00-0.00); Lymphocytes # (Auto) 1.1 Thou/mm3 (1.0-4.8); Lymphocytes % (Auto) 21 % (10-50); Mean Corpuscular HGB Conc 33.9 g/dl (31.0-37.0); Mean Corpuscular Hemoglobin 33.7 pg (25.0-35.0); Mean Corpuscular Volume 100 fL (80-100); Monocytes # (Auto) 0.9 Thou/mm3 (0.0-0.8); Monocytes % (Auto) 17 % (0-12); Neutrophils # (Auto) 2.9 Thou/mm3 (1.8-7.7); Neutrophils % (Auto) 57 % (37-80); Nucleated Red Blood Cell # 0.00 Thou/mm3 (0.00-0.00); Nucleated Red Blood Cell % 0 /100 WBC (0); Platelet Count 83 Thou/mm3 (140-440); RDW Standard Deviation 47.5 fL (35.1-43.9); Red Blood Count 4.21 Miln/mm3 (4.50-5.90); White Blood Count 5.1 Thou/mm3 (3.8-10.6)
[2025-08-02 06:40] LABS: Ammonia 60 uMol/L (11-32)
[2025-08-02 06:48] LABS: Alanine Aminotransferase 56 U/L (10-49); Albumin, Serum 3.9 gm/dL (3.5-5.0); Albumin/Globulin Ratio 1.0 (1.2-2.2); Alkaline Phosphatase 102 U/L (46-116); Anion Gap 9 (7-16); Aspartate Amino Transferase 121 U/L (0-34); BUN/Creatinine Ratio 20 Ratio (12-20); Bilirubin,Total 2.0 mg/dL (0.3-1.2); Blood Urea Nitrogen 12 mg/dL (9-23); Calcium 9.5 mg/dL (8.3-10.6); Calcium (Corrected) 9.6 mg/dL (8.5-10.1); Carbon Dioxide 21.6 mMol/L (20.0-31.0); Chloride 104 mMol/L (98-107); Creatinine (Component) 0.6 mg/dL (0.6-1.3); Estimated Creatinine Clearance 142.9 mL/min (>60); Globulin 4.1 gm/dL (2.3-3.5); Glucose 104 mg/dL (74-106); Magnesium 1.9 mg/dL (1.6-2.6); Osmolality,Calculated 269 (275-295); Phosphorous 4.3 mg/dL (2.4-5.1); Potassium 3.1 mMol/L (3.4-5.1); Sodium 135 mMol/L (136-145); Total Protein 8.0 gm/dL (5.7-8.2); eGFR > 60 See Note
--- NOTE | 2025-08-02 07:00 | EKG_ITS ---
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 : [id number] Requested By: Donnie Esteban Order Number: [id number] Reading MD: Donnie Esteban Measurements Intervals [place] Rate: 94 P: 20 CT: 176 QRS: -74 QRSD: 153 T: -26 QT: 400 QTc: 502 Interpretive Statements SINUS RHYTHM POSSIBLE LEFT ATRIAL ENLARGEMENT RIGHT BUNDLE BRANCH BLOCK LEFT ANTERIOR FASCICULAR BLOCK MODERATE T-WAVE ABNORMALITY, CONSIDER LATERAL ISCHEMIA Compared to ECG 08/01/2025 10:49:18 Left anterior fascicular block now present Right-axis deviation no longer present T-wave abnormality still present Possible ischemia still present /store/S0/[id number]
--- NOTE | 2025-08-02 07:35 | ESPR_ITS ---
<Statement entered by Donnie Esteban MD - 08/02/25 16:33> Pt is seen at bedside, CIWA is 10. Pt is more agitated this morning, denies any hallucinations. repeat EKG shows prolong QT, tele-monitor is evident of first degree heart block. Will continue to replete potassium and mag to be above 4 and 2. Cardiology is following the patient. pt does not have any complaints. Will continue to hold QT prolonging agents. Ammonia level was elevated this morning, pt is started on lactulose Patient was seen and examined by me personally. I have directly supervised and reviewed documentation by the team resident and agree with its findings. ------- Plan of care was discussed with the attending, Dr. Vernon Esteban, PGY-2 Documentation for date of: 08/02/25 Subjective Subjective Interval history: NAEO. Tachycardic 100s. More awake today than previous exam. Denies new concerns at this time. Nurse DANIEL 11-14 Exam Vital Signs Temp Pulse Resp BP Pulse Ox O2 Del Method O2 Flow Rate 97.6 F 74 18 125/82 97 Room Air 1 08/02/25 04:00 08/02/25 04:00 08/02/25 04:00 08/02/25 04:00 08/02/25 04:00 08/02/25 04:00 08/01/25 20:11 Narrative Exam General: No acute distress, lying in bed Eye: PERRL, EOMI, normal conjunctiva, no scleral icterus HENT: Normocephalic, atraumatic, normal hearing, moist oral mucosa Neck: Supple, non-tender, no JVD, no lymphadenopathy Lungs: Clear to auscultation bilaterally, non-labored respirations, symmetric chest rise, no use of accessory muscles Heart: Normal S1 and S2, no S3 or S4 appreciated. Normal rate and regular rhythm, no murmurs, rubs gallops, or edema. Peripheral pulses intact bilaterally, capillary refill brisk distally Abdomen: Soft, non-tender, non-distended. Has umbilical hernia, reducible, no TTP Musculoskeletal: Normal range of motion and strength, no tenderness or swelling Skin: Skin is warm, dry, no rashes or lesions. Neurologic: Alert, awake and oriented x1. CN II-XII grossly intact. No focal neuro deficits. No signs of meningeal irritation noted. Psychiatric: Cooperative, appropriate mood and affect. Loose associations, poor insight and judgment CIWA: Nausea/vomitin Tremor: 0 Paroxysmal sweats: 0 Anxiety: 2 Agitation: 2 Tactile disturbance: 2 Auditory disturbance: 0 Visual disturbance: 0 Headache/fullness in head: 3 Orientation/clouding of sensorium: 3 Total: 12 Objective Labs 08/03/25 08:21 08/03/25 06:50 Labs: Laboratory Results - last 24 hr 08/01/25 08/01/25 08/01/25 05:15 07:05 23:46 WBC RBC Hgb Hct MCV MCH MCHC RDW Std Deviation Plt Count Neut % (Auto) Lymph % (Auto) Scott % (Auto) Eos % (Auto) Baso % (Auto) Neut # (Auto) Lymph # (Auto) Scott # (Auto) Eos # (Auto) Baso # (Auto) Immature Gran # (Auto) Absolute Nucleated RBC Immature Gran % Nucleated RBC % Sodium 136 Potassium 3.6 Chloride 101 Carbon Dioxide 24.4 Anion Gap 11 BUN 13 Creatinine 0.7 Estim Creat Clear Calc 122.5 eGFR > 60 BUN/Creatinine Ratio 19 Glucose 92 Calculated Osmolality 272 L Calcium 9.4 Corrected Calcium 9.4 Phosphorus 3.1 Magnesium 1.9 Total Bilirubin 2.9 H AST 129 H ALT 49 Alkaline Phosphatase 105 Ammonia Total Protein 8.8 H Albumin 4.2 Globulin 4.6 H Albumin/Globulin Ratio 0.9 L Ur Random Sodium 18.9 L Ur Random Potassium 29 Ur Random Chloride < 20.0 L Misc Test Result Platelets confirmed 08/02/25 00:04 WBC 5.1 RBC 4.21 L Hgb 14.2 Hct 41.9 MCV 100 MCH 33.7 MCHC 33.9 RDW Std Deviation 47.5 H Plt Count 83 L D Neut % (Auto) 57 Lymph % (Auto) 21 Scott % (Auto) 17 H Eos % (Auto) 4 Baso % (Auto) 2 Neut # (Auto) 2.9 Lymph # (Auto) 1.1 Scott # (Auto) 0.9 H Eos # (Auto) 0.2 Baso # (Auto) 0.1 Immature Gran # (Auto) 0.01 H Absolute Nucleated RBC 0.00 Immature Gran % 0 Nucleated RBC % 0 Sodium 135 L Potassium 3.1 L D Chloride 104 Carbon Dioxide 21.6 Anion Gap 9 BUN 12 Creatinine 0.6 Estim Creat Clear Calc 142.9 eGFR > 60 BUN/Creatinine Ratio 20 Glucose 104 Calculated Osmolality 269 L Calcium 9.5 Corrected Calcium 9.6 Phosphorus 4.3 Magnesium 1.9 Total Bilirubin 2.0 H D AST 121 H ALT 56 H Alkaline Phosphatase 102 Ammonia 60 H Total Protein 8.0 Albumin 3.9 Globulin 4.1 H Albumin/Globulin Ratio 1.0 L Ur Random Sodium Ur Random Potassium Ur Random Chloride Misc Test Result Quality Measures Quality Measures VTE prophylaxis Assessment & Plan Assessment Current Active Medications: Generic Name Dose Route Start Last Admin Trade Name Freq PRN Reason Stop Dose Admin Acetaminophen 650 mg 07/31/25 03:44 08/01/25 02:58 Acetaminophen 325 Mg Tablet PO 08/30/25 03:43 650 mg Q6HR PRN Administration PAIN (1-3) OR FEVER > 100.4 Chlordiazepoxide HCl 25 mg 07/31/25 03:10 08/01/25 11:46 Chlordiazepoxide Hcl 25 Mg Capsule PO 08/05/25 03:09 Not Given On Hold: 08/01/25 15:31 Q8H KELLY Enoxaparin Sodium 40 mg 07/31/25 09:00 08/01/25 08:36 Enoxaparin Sod Inj 40 Mg/0.4 Ml Syringe SC 08/14/25 08:59 40 mg QDAY KELLY Administration Folic Acid 1 mg 07/31/25 00:10 08/01/25 08:36 Folic Acid Inj 1 Mg/0.2 Ml IVP 08/30/25 00:09 1 mg QDAY KELLY Administration Levetiracetam 500 mg 07/31/25 09:00 08/01/25 20:36 Levetiracetam Inj 100 Mg/Ml Vial 5ml IVP 08/30/25 08:59 500 mg Q12HR KELLY Administration Lorazepam 0.5 mg 07/31/25 00:20 07/31/25 16:54 Lorazepam 0.5 Mg Tablet PO 08/05/25 00:19 0.5 mg Q2H PRN Administration CIWA 2-6 Lorazepam 2 mg 07/31/25 01:29 Lorazepam 2 Mg/Ml Vial IVP Q5MIN PRN seizure breakthrough Lorazepam 2 mg 08/01/25 15:31 Lorazepam 2 Mg/Ml Vial IVP 08/05/25 00:21 Q2H PRN CIWA 12-20 Lorazepam 1 mg 08/01/25 15:31 08/02/25 04:10 Lorazepam 2 Mg/Ml Vial IVP 08/05/25 00:20 1 mg Q2H PRN Administration CIWA 7-11 Polyethylene Glycol 17 gm 07/31/25 11:45 08/01/25 08:35 Polyethylene Glycol 17 Gm Packet PO 08/30/25 11:44 17 gm QDAY KELLY Administration Thiamine HCl 100 mg 07/31/25 09:00 08/01/25 08:37 Thiamine Inj 100 Mg/Ml Vial 2 Ml IVP 08/30/25 08:59 100 mg QDAY KELLY Administration Plan Mr. Singh is a 60 y/o male with PMH epilepsy, medication noncompliance, alcohol use disorder who presented to the ED on 07/31 after two witnessed tonic clonic seizures that both aborted after 2 minutes without pharmaceutical intervention, return to baseline b/w seizures. #Acute encephalopathy #Hyperammonemia 08/01 patient was somnolent Ammonia 60 May be 2/2 ammonemia, benzos for CIWA Plan: - Lactulose 200 mg NE TID - Held Librium - Decreased benzo doses for CIWA (as below) - Can consider LP if mentation does not improve with current management #Epilepsy #Medication noncompliance Patient unsure what medication he takes and is noncompliant with medication. Tried calling Pharmacy ([facility] in [place], ), but closed for holiday Had 2 tonic clonic seizures at home, return to baseline between seizures, second seizure witnessed, both aborted at ~[address] head negative for acute hemorrhage, mass effect, midline shift. Cortical atrophy present EEG was inconclusive due to patient excessive movement In ED patient received a total of 2.5 g of Keppra s/p IVF 1L Seizures most likely 2/2 medication noncompliance. Seizure most likely causing fever, elevated CK given no source of infection identified. Plan: - Consulted neurology, appreciate recs ? Keppra 500 mg twice daily ? Lorazepam 2 mg IV for breakthrough seizures ? Repeat EEG ordered as the first one was inconclusive ? Seizure precautions ? Aspiration precautions - CTM vitals - Pt to refrain from driving, confirmed patient does not drive or have a car #Alcohol use disorder #Hepatic steatosis #Transaminitis (mildly elevated, downtrending) #Hyperbilirubinemia #Thrombocytopenia Drinks six pack beer daily. Last drink was 07/30. UDS + benzo Given patient's very low platelet count and liver damage, it would be advisable to avoid using phenobarbital No active s/sx of bleeding Mild to no coagulopathy (PT slightly prolonged but INR and PTT WNL) Hepatitis panel non reactive. B12, folate, TSH WNL. BAL <3 Abd US: gallbladder sludge. No cholelithiasis or cholecystitis. Hepatic steatosis Cirrhosis and esophageal varices seen on CTA chest Plan: ? CIWA protocol ? CIWA 2-6 --> lorazepam 0.5 mg PO q2h PRN ? CIWA 7-11 --> lorazepam 1 mg IV q2h PRN ? CIWA 12?20 --> lorazepam 2 mg IV q2h PRN ? Chlordiazepoxide 25 mg - held 2/2 acute encephalopathy ? Thiamine 500 mg IV x 1 followed by 100 mg IV daily ? Folic acid 1 mg IV daily ? Seizure precautions ? Aspiration precautions - Hold lovenox if plt <50 - CTM with daily CMP #Severe QTc prolongation EKG on arrival showed QTc 570 ms --> 516 --> 502 Patient at risk for life-threatening arrhythmias, particularly torsades de points TSH WNL Plan ? Keep potassium above 4 and magnesium above 2 ? Telemetry ? Avoid QTc prolonging drugs ?We will obtain cardiology consult, echocardiography ordered #Elevated D dimer D dimer 652 CTA chest: No PE No s/sx DVT on exam Plan: - CTM for s/sx PE/DVT #SIRS - resolved Febrile, tachycardic. No leukocytosis, no end-organ damage, no source of infection Fever most likely 2/2 seizures Procal, CRP WNL. ESR high (55) Plan: - CTM vitals #Hypotonic hyponatremia Na 129, osm 257 Most likely hypovolemic, patient appears dry Given 1L IVF in ED Plan: - Maintenance IVF 100 mL/hr x1 bag - CTM with daily CMP #Umbilical hernia Reducible, no TTP Plan: - f/u outpatient Checklist Dispo: Pending EEG, lactulose for hyperammonemia Lines: PIV Diet: Regular Bowel Reg: Polyethylene glycose 17 g PO daily, Lactulose 200 mg NE TID VTE ppx: Lovenox 40 mg subQ daily (hold if plt <50) GI ppx: n/a Pain mgmt: Tylenol PRN Code status: full Plan discussed with Dr. Sarah Esteban and Dr. Vernon Celestin MD PGY1 Attending Provider Attestation/Addendum I have seen and examined the patient. I was physically present for the hogan portions of the services provided including history, physical exam, diagnosis, treatment plans and orders. I agree with assessment and plan of care as documented by residents. Even though this this note was carefully revised there may still be minor errors in kiln stoker due to voice recognition software. Tahir Junior MD
[2025-08-02] MEDS: LORazepam 2 MG/ML VIAL IVP ×6 (08:14→22:47)
[2025-08-02] MEDS: levETIRAcetam INJ 100 MG/ML VIAL 5ML 500 MG IVP ×2 (09:18→21:17)
[2025-08-02] MEDS: THIAMINE INJ 100 MG/ML VIAL 2 ML IVP (09:19)
[2025-08-02] MEDS: ENOXAPARIN SOD INJ 40 MG/0.4 ML SYRINGE SC (09:19)
[2025-08-02] MEDS: POLYETHYLENE GLYCOL 17 GM PACKET PO (09:20)
--- NOTE | 2025-08-02 09:24 | ESPR_ITS ---
Tele Neuro Progress Note Progress Note Date 08/02/25 [facility] TeleNeurology Consult Services Routine Consult Follow-Up Patient Name:???Luke Singh Date of :???1965 Identification Number:??? Date of Service:???08/02/2025 09:22:28 Diagnosis?G40.89 - Other seizures Impression Breakthrough Seizures, no further clinical events -Known Hx of seizures has a neurologist extensive history of medication noncompliance - Patient also with heavy alcohol use and hepatic impairment - Received a load of Keppra 2000 mg milligrams in the ER Toxic-Metabolic Encephalopathy Severe alcohol withdrawal - CIWA continues to be very high overnight was 14, receiving Ativan and Librium likely contributing to mentation CT head without acute findings Could not obtain EEG as patient did not cooperate I did touch base with the primary team Dr. Esteban to possibly consider LP, felt that fever source was likely from gastroenteritis and alcohol withdrawal. Reported that mentation was better earlier this morning but likely sedated from Librium and Ativan due to very high CIWA. Plan: Resume Keppra 500 mg twice daily Neurology will sign off. Our recommendations are outlined below Subjective Patient's mentation much improved today. No acute complaints. ? Examination Neuro Exam: General:?Alert,Awake, Oriented, Place, Person says he is in a room, does not know the date Speech:?Dysarthric: Language:?Intact: Face:?Symmetric: Motor Exam:?No Drift: Coordination:?Intact: ? This consult was conducted in real time using interactive audio and video technology. Patient was informed of the technology being used for this visit and agreed to proceed. Patient located in hospital and provider located at home/office setting. Telehealth Neurology consultation was provided. I spent minutes providing telehealth care. This includes time spent for face to face visit via telemedicine, review of medical records, imaging studies and discussion of findings with providers, the patient and/or family. Dr Pamela Henriquez For Inpatient follow-up with [facility] physician please call [facility] at . As we are not an outpatient service for any post hospital discharge needs please contact the hospital for assistance. If you have any questions for the [facility] physicians or need to reconsult for clinical or diagnostic changes please contact us via [facility] at Signature :?Pamela Rowe Most Recent Vital Signs Last Vital Signs Temp 97.2 F 08/02/25 08:00 Pulse 93 08/02/25 08:00 Resp 20 08/02/25 08:00 BP 138/94 H 08/02/25 08:00 Pulse Ox 94 L 08/02/25 08:00 O2 Del Method Room Air 08/02/25 08:00 O2 Flow Rate 1 08/01/25 20:11 Laboratory-Coagulation Panel PT 13.2 Seconds (9.0-12.2) H 07/31/25 08:29 INR 1.3 (0.9-1.3) 07/31/25 08:29 APTT 26.7 Seconds (22.0-36.0) 07/31/25 08:29 D-Dimer 652 ng/mL (<600) H 07/30/25 22:56
[2025-08-02] MEDS: LACTULOSE SYRUP 10 GM/15 ML 200 GM PR ×2 (10:24→13:52)
[2025-08-02] MEDS: FOLIC ACID INJ 1 MG/0.2 ML IVP (10:25)
--- NOTE | 2025-08-02 15:35 | ESCONSULT_ITS ---
HPI Data of Consult Requesting Physician: Pamela Rowe Admitting Provider: Noemi Smith MD Attending Provider: Pamela Rowe Primary Care Provider: Physician No Primary/Family Consult Narrative History of present illness: The patient is a 60-year-old male with a past medical history of seizures, currently on Keppra (levetiracetam) for seizure management, but with a history of medication noncompliance. He also has a history of alcohol use, and was recently living homeless before staying with his sister. The patient presented to [facility] on 07/31/2025 after experiencing two tonic-clonic seizures on the same day, both lasting approximately 2 minutes. The first seizure occurred in the morning while watching TV, and the second occurred later in the afternoon. Notable symptoms preceding the seizures included nausea and vomiting (4 episodes). The patient was postictal after the second seizure, presenting with confusion and urinary incontinence. After the seizure, the patient reported shortness of breath, but denied any other symptoms. According to the patient's sister, he has not been following up with medical appointments for the last 3 weeks and has been noncompliant with his seizure medications during this time. ED Course: Initial Vitals: Temperature: 98?F,Blood Pressure: 175/109 mmHg , Heart Rate: 108 bpm ,Respiratory Rate: 18 breaths/min, Oxygen Saturation: 98% on room air Notable Labs:WBC: Normal,Platelets: 67 (low, potentially indicating thrombocytopenia or alcohol-related liver dysfunction),Sodium: 132 (mild hyponatremia),Creatinine: 0.6 (normal),T. Bilirubin: 2.6 (elevated, suggests possible liver dysfunction or hemolysis),D. Bilirubin: 0.9 (elevated),AST: 104 (elevated, suggests liver injury or alcohol-related damage),ALT: 51 (elevated, though less concerning than AST),CK (Creatine Kinase): 935 (elevated, possibly due to muscle injury from seizures),Troponin: Negative (no evidence of myocardial injury),Vitamin B12: 802 (normal),Urine Toxicology: Positive for benzodiazepines, which may have been administered in the ED.D-dimer: 652 (elevated, but no evidence of pulmonary embolism on CTPA) Imaging:CTPA: No evidence of pulmonary thromboembolism (PE) ED Treatment: Keppra 2.5 g IV Lactated Ringer?s 1L for hydration Magnesium sulfate 2g IV (likely for seizure prophylaxis or correcting hypomagnesemia) Lorazepam 2 mg IV (for seizure control) Past medical history as above Past surgical history none Allergies ibuprofen Medication Keppra Family history denies any family history of heart problems, diabetes,Hypertension Social history drinks 6 packs of 24 ounces daily, denies smoking or any illicit drug use. Hospital Course: QTc Prolongation: Noted QTc prolongation of about 500 ms on telemetry, which is concerning for potential arrhythmias. Electrolyte Imbalance: Hypokalemia and hypomagnesemia, likely exacerbated by alcohol use, seizure activity, and possible poor nutritional intake. Telemetry: The patient was noted to have type I AV block with a OH interval of 22, which may be related to electrolyte abnormalities or medications. The patient denied any symptoms of chest pain, shortness of breath, or palpitations. Cardiology Consult: Due to the QTc prolongation and electrolyte disturbances, a cardiology consultation was requested for further management recommendations. cc:: cc: Pamela Rowe Review of Systems Review of Systems Systems Reviewed: All systems reviewed, normal except as documented Exam Vital Signs Temp Pulse Resp BP Pulse Ox O2 Del Method O2 Flow Rate 98.5 F 86 20 114/81 94 L Room Air 1 08/02/25 12:00 08/02/25 12:00 08/02/25 12:00 08/02/25 12:00 08/02/25 12:00 08/02/25 12:00 08/01/25 20:11 Narrative Exam General: AOx3, no acute distress, able to speak full sentences, poor oral hygiene HEENT: NC/AT, mucous membranes moist, Cardiovascular: regular rate and rhythm, S1/S2 present, no murmurs appreciated Pulmonary: clear to auscultation bilaterally, no rales/rhonchi/wheezes Abdominal: soft, non-tender, mild distention, umbilical hernia, no rebound/guarding, normal bowel sounds present Musculoskeletal: normal ROM, no peripheral edema Skin: warm and dry, intact, no rashes, Neuro: CN II-XII intact, no focal deficits Results Labs 08/02/25 00:04 08/02/25 00:04 Labs: Short CBC 08/02/25 Range/Units 00:04 WBC 5.1 (3.8-10.6) Thou/mm3 Hgb 14.2 (13.5-16.0) g/dL Hct 41.9 (41.0-53.0) % Plt Count 83 L D (140-440) Thou/mm3 BMP 08/02/25 00:04 Sodium 135 L Potassium 3.1 L D Chloride 104 Carbon Dioxide 21.6 BUN 12 Creatinine 0.6 Glucose 104 Calcium 9.5 Liver Function 08/02/25 Range/Units 00:04 Total Bilirubin 2.0 H D (0.3-1.2) mg/dL AST 121 H (0-34) U/L ALT 56 H (10-49) U/L Alkaline Phosphatase 102 (46-116) U/L Albumin 3.9 (3.5-5.0) gm/dL Quality Measures Quality Measures VTE prophylaxis Medications Home Medications and Allergies Home Medications ?Medication ?Instructions ?Recorded ?Confirmed ?Type Unobtainable 07/30/25 07/30/25 History Allergies Allergy/AdvReac Type Severity Reaction Status Date / Time ibuprofen Allergy Intermediate Hives Verified 07/30/25 11:12 Visit Medications Acetaminophen (Acetaminophen 325 Mg Tablet) 650 mg PO Q6HR PRN PRN Reason: PAIN (1-3) OR FEVER > 100.4 Stop: 08/30/25 03:43 Last Admin: 08/01/25 02:58 Dose: 650 mg Chlordiazepoxide HCl (Chlordiazepoxide Hcl 25 Mg Capsule) 25 mg PO Q8H [facility] Stop: 08/05/25 03:09 Last Admin: 08/01/25 11:46 Dose: Not Given Enoxaparin Sodium (Enoxaparin Sod Inj 40 Mg/0.4 Ml Syringe) 40 mg SC QDAY KELLY Stop: 08/14/25 08:59 Last Admin: 08/02/25 09:19 Dose: 40 mg Folic Acid (Folic Acid Inj 1 Mg/0.2 Ml) 1 mg IVP QDAY KELLY Stop: 08/30/25 00:09 Last Admin: 08/02/25 10:25 Dose: 1 mg Magnesium Sulfate (Magnesium Sulfate Ivpb) 4 gm in 50 mls @ 12.5 mls/hr IV X1 ONE Stop: 08/02/25 19:27 Lactulose (Lactulose Syrup 10 Gm/15 Ml) 200 gm OH TID KELLY; Protocol Stop: 09/01/25 09:14 Last Admin: 08/02/25 13:52 Dose: 200 gm Levetiracetam (Levetiracetam Inj 100 Mg/Ml Vial 5ml) 500 mg IVP Q12HR [facility] Stop: 08/30/25 08:59 Last Admin: 08/02/25 09:18 Dose: 500 mg Lorazepam (Lorazepam 0.5 Mg Tablet) 0.5 mg PO Q2H PRN PRN Reason: CIWA 2-6 Stop: 08/05/25 00:19 Last Admin: 07/31/25 16:54 Dose: 0.5 mg Lorazepam (Lorazepam 2 Mg/Ml Vial) 2 mg IVP Q5MIN PRN PRN Reason: seizure breakthrough Lorazepam (Lorazepam 2 Mg/Ml Vial) 2 mg IVP Q2H PRN PRN Reason: CIWA 12-20 Stop: 08/05/25 00:21 Last Admin: 08/02/25 12:40 Dose: 2 mg Lorazepam (Lorazepam 2 Mg/Ml Vial) 1 mg IVP Q2H PRN PRN Reason: CIWA 7-11 Stop: 08/05/25 00:20 Last Admin: 08/02/25 04:10 Dose: 1 mg Polyethylene Glycol (Polyethylene Glycol 17 Gm Packet) 17 gm PO QDAY [facility] Stop: 08/30/25 11:44 Last Admin: 08/02/25 09:20 Dose: 17 gm Thiamine HCl (Thiamine Inj 100 Mg/Ml Vial 2 Ml) 100 mg IVP QDAY [facility] Stop: 08/30/25 08:59 Last Admin: 08/02/25 09:19 Dose: 100 mg Discontinued Medications Acetaminophen (Acetaminophen 325 Mg Tablet) 650 mg PO X1 ONE Stop: 07/30/25 14:09 Last Admin: 07/30/25 14:51 Dose: 650 mg Diazepam (Diazepam Inj 5 Mg/Ml Vial 2 Ml) 10 mg IVP X1 ONE Stop: 07/31/25 00:01 Last Admin: 07/31/25 01:11 Dose: 10 mg Lactated Ringer's (Lactated Ringers) 1,000 mls @ 999 mls/hr IV .Q1H1M ONE Stop: 07/30/25 15:11 Last Infusion: 07/30/25 16:00 Dose: Infused Magnesium Sulfate (Magnesium Sulfate Ivpb) 2 gm in 50 mls @ 25 mls/hr IV X1 ONE Stop: 07/30/25 23:49 Last Infusion: 07/31/25 00:43 Dose: Infused Sodium Chloride (Ns) 1,000 mls @ 999 mls/hr IV .Q1H1M ONE Stop: 07/31/25 01:24 Last Admin: 07/31/25 00:57 Dose: Not Given Lactated Ringer's (Lactated Ringers) 1,000 mls @ 100 mls/hr IV .Q10H KELLY Stop: 07/31/25 11:44 Last Admin: 07/31/25 02:51 Dose: 100 mls/hr Levetiracetam (Levetiracetam Inj 100 Mg/Ml Vial 5ml) 1,000 mg IVP X1 ONE Stop: 07/30/25 11:04 Last Admin: 07/30/25 11:21 Dose: 1,000 mg Levetiracetam (Levetiracetam Inj 100 Mg/Ml Vial 5ml) 1,500 mg IVP X1 ONE Stop: 07/30/25 18:06 Last Admin: 07/30/25 18:10 Dose: 1,500 mg Lorazepam (Lorazepam 2 Mg/Ml Vial) 2 mg IVP X1 ONE Stop: 07/30/25 18:20 Last Admin: 07/30/25 18:26 Dose: 2 mg Lorazepam (Lorazepam 2 Mg/Ml Vial) 2 mg IVP Q2H PRN PRN Reason: CI 7-13 Stop: 08/05/25 00:20 Lorazepam (Lorazepam 2 Mg/Ml Vial) 4 mg IVP Q2H PRN PRN Reason: PAULIE 14 Stop: 08/05/25 00:21 Lorazepam (Lorazepam 2 Mg/Ml Vial) 4 mg IVP Q2H PRN PRN Reason: CI 12 Stop: 08/05/25 00:21 Last Admin: 08/01/25 00:17 Dose: 4 mg Lorazepam (Lorazepam 2 Mg/Ml Vial) 2 mg IVP Q2H PRN PRN Reason: PAULIE 7- Stop: 08/05/25 00:20 Last Admin: 07/31/25 08:40 Dose: 2 mg Lorazepam (Lorazepam 2 Mg/Ml Vial) 2 mg IVP Q15MIN PRN PRN Reason: seizure breakthrough Lorazepam (Lorazepam 2 Mg/Ml Vial) 2 mg IVP X1 ONE Stop: 07/31/25 03:58 Last Admin: 07/31/25 04:52 Dose: 2 mg Lorazepam (Lorazepam 2 Mg/Ml Vial) 2 mg IVP X1 ONE Stop: 08/02/25 13:40 Last Admin: 08/02/25 13:53 Dose: 2 mg Ondansetron HCl (Ondansetron Inj 2 Mg/Ml Inj 2 Ml) 4 mg IVP Q6H PRN; Protocol PRN Reason: NAUSEA OR VOMITING Stop: 08/29/25 23:52 Potassium Chloride (Potassium Chloride 20 Meq Tabcr) 40 meq PO X1 ONE Stop: 07/31/25 07:47 Last Admin: 07/31/25 08:39 Dose: 40 meq Potassium Chloride (Potassium Chloride 20 Meq Tabcr) 40 meq PO X1 ONE Stop: 08/02/25 07:37 Last Admin: 08/02/25 08:05 Dose: 40 meq Potassium Chloride (Potassium Chloride 20 Meq Tabcr) 40 meq PO X1 ONE Stop: 08/02/25 09:01 Last Admin: 08/02/25 09:18 Dose: 40 meq Potassium Chloride (Potassium Chloride 20 Meq Tabcr) 40 meq PO X1 ONE Stop: 08/02/25 15:29 Thiamine HCl (Thiamine Inj 100 Mg/Ml Vial 2 Ml) 500 mg IVP X1 ONE Stop: 07/31/25 00:05 Last Admin: 07/31/25 01:10 Dose: 500 mg Assessment & Plan Plan 60-year-old male with past medical history of seizure disorder and alcohol use was admitted for alcohol withdrawal/seizure disorder treatment and management. Hospital course was notable for QTc prolongation and type I AV block with OH of 22. Cardiology was consulted for further evaluation. 1. Abnormal EKG with QTc prolongation 2. Questionable type I AV block 3. Electrolyte abnormality including hypokalemia and hypomagnesemia 4. Essential Hypertension 5. Seizure disorder 6. Alcohol use Upon evaluation notable finding was QTc prolongation to more than 500, which is concerning for the potential development of arrhythmia. Electrolyte imbalances, including hypokalemia and hypomagnesemia, both can contribute to arrhythmias and further prolongation of QTc. On telemetry the patient had episode of type I AV block with OH interval of 222, patient denies any symptoms of chest pain, shortness of breath or palpitation. This might be related to the electrolyte disbalance or could be medication effect, The patient vital signs currently are stable. The patient's cardiovascular risk is elevated due to his alcohol use, potential electrolyte abnormalities and his general medical condition which requires close monitoring and management to prevent any serious cardiac complication Recommendations 1. Electrolyte correction: Potassium and magnesium repletion are essential, continue with IV potassium and IV magnesium until levels are normalized, keep magnesium above 2 and potassium above 4, monitor electrolytes replace as needed 2. QTc prolongation management: Monitor for any arrhythmias, aggressively replace magnesium IV to prevent any further QTc prolongation.Continue to avoid medications that prolong the QT interval. 3. Type I AV block: Seen on telemetry, OH interval of 22, but patient denies symptoms of chest pain, palpitation, syncope. This is likely related to electrolyte imbalance, particularly hypokalemia, or can be transient effect of medication such as Keppra and Ativan. Monitor on telemetry. Repeat EKG after electrolyte replacement 4. Patient had episode of hypertension and tachycardia most likely in the setting of alcohol withdrawal, monitor vital signs 5. Patient will need close follow-up with cardiology outpatient and have extensive ischemic workup done outpatient. 6. Extensive counseling regarding side effect of alcohol dependence. Rest of the chronic conditions to be managed by primary team. Patient care was discussed with attending physician Dr. Sally Crawford MD PGY-3 I have carefully reviewed this document. Due to imperfections in the voice software, there could be grammatical errors including phonetic/typographic errors. This in no way compromises the medical care the patient is receiving Attending Provider Attestation/Addendum I have personally seen and examined the patient separately on the above date of service and discussed the plan of care with the resident. I reviewed the resident Dr. Nichelle Vazquez consultation progress note and agree with the resident findings and plan in the note above and have also edited the documentation to reflect my findings and plan. Cardiology consulted for further evaluation of abnormal EKG with prolonged QTc of greater than 500 ms as well as questionable type I AV block. Reviewed the EKG and patient does have normal sinus rhythm or sinus tachycardia with right bundle branch block. Patient QTc actually is actually not significantly prolonged considering the RBBB and also patient does have hypokalemia and hypomagnesemia which could both contribute to the prolonged QTc. Recommend to aggressively replace the potassium as well as the magnesium for the patient and hogan potassium greater than 4 and magnesium greater than 2.0 at all times. Could not see any evidence of any AV block but no further workup required for the first-degree AV block. Echo has been ordered and will follow-up for any structural abnormalities including any regional wall motion abnormalities LV function and RV function. Randell Zavala M.D. Interventional Cardiology
[2025-08-02] MEDS: Magnesium Sulfate 4 GM Ivpb 4 GM/50 ML BAG IV (16:32)
--- NOTE | 2025-08-02 21:33 | ECHO_ITS ---
Patient Info Name: Luke Singh Age: 60 years : 1965 Gender: Male Ht: 180 cm Wt: 76 kg BSA: 1.96 m2 BP: 147 / 98 mmHg HR: 93 bpm Exam Date: 08/03/2025 7:28 AM Admit Date: 07/31/2025 Site: Room Number: 267 Patient Status: I Exam Type: CA echo doppler complete Media Senior Recruiter: Haily Roberts Ordering Physician: Randell Zavala Study Info Indications Abnormal EKG - Primary Location: S2NX Left Ventricular Outflow Tract Name Value Normal LVOT 2D LVOT Diameter 1.8 cm LVOT Doppler LVOT Peak Velocity 91 cm/s LVOT Mean Gradient 2 mmHg LVOT VTI 17 cm LVOT VTI/AV VTI Ratio 0.8 LVOT Stroke Volume 43 ml Pulmonic Valve Name Value Normal PV Doppler PV Peak Velocity 65 cm/s Mitral Valve Name Value Normal MV Doppler MV Decel [place] 964 cm/s2 MV PHT 12 ms MV Area (PHT) 18.1 cm2 4.0-5.0 MV Diastolic Function MV E Peak Velocity 41 cm/s MV A Peak Velocity 77 cm/s MV E/A 0.5 MV Annular TDI MV Septal e' Velocity 5.8 cm/s MV E/e' (Septal) 7.1 Tricuspid Valve Name Value Normal TV Regurgitation Doppler TR Peak Velocity 109 cm/s Estimated PAP/RSVP RA Pressure 8 mmHg <=5 PA Systolic Pressure 13 mmHg <36 RV Systolic Pressure 13 mmHg <36 TV Annular TDI TV Lateral Brynn s' Velocity 8.3 cm/s >=9.5 Aortic Valve Name Value Normal AV 2D/MM AV Cusp Sep (MM) 1.6 cm AV Doppler AV Peak Velocity 128 cm/s AV Mean Gradient 4 mmHg AV VTI 22 cm AV Area (Cont Eq VTI) 2.0 cm2 >=3.0 AV Area (Cont Eq Lalo) 1.8 cm2 AV DI (Lalo) 0.71 AV Regurgitation 2D LVOT Area 2.5 cm2 Ventricles Name Value Normal LV Dimensions 2D/MM IVS Diastolic Thickness (2D) 0.9 cm 0.6-1.0 LVID Diastole (2D) 5.2 cm 4.2-5.8 LVIW Diastolic Thickness (2D) 0.7 cm 0.6-1.0 LVID Systole (2D) 3.8 cm 2.5-4.0 LVOT Diameter 1.8 cm LV Mass (2D Cubed) 145.22 g 88.00-224.00 LV Mass Index (2D Cubed) 74 g/m2 49-115 Relative Wall Thickness (2D) 0.27 <=0.42 IVS/LVIW Diastolic Thickness (2D) 1.29 0.00-1.50 LV Fractional Shortening/Ejection Fraction 2D/MM LV Fractional Shortening (2D) 27 % 25-43 LV EF (2D Teichholz) 52 % RV Dimensions 2D/MM TV Lateral Brynn s' Velocity 8.3 cm/s >=9.5 Atria Name Value Normal LA Dimensions LA Volume (4C A-L) 18 ml LA Volume (BP A-L) 26 ml Left Ventricle Left ventricular chamber dimension is normal. Left ventricular systolic function is normal with visually estimated ejection fraction of 50-55%. There is normal geometry noted in the left ventricle. Left ventricular segmental wall motion is normal. There is normal diastolic function in the left ventricle. Right Ventricle Right ventricular chamber dimension is normal. Right ventricular systolic function is normal. Left Atrium Left atrial chamber dimension is normal. Right Atrium Right atrial chamber dimension is normal. Aortic Valve The aortic valve is trileaflet. There is mild aortic valve sclerosis. There is no aortic valve stenosis with a peak velocity of 128 cm/s, mean gradient of 4 mmHg, and aortic valve area of 2.0 cm2. There is no aortic valve regurgitation. Pulmonic Valve The pulmonic valve is normal. There is no pulmonic valve stenosis. There is no pulmonic regurgitation. Mitral Valve The mitral valve has normal leaflets. There is no mitral valve stenosis. There is trace mitral valve regurgitation. Tricuspid Valve The tricuspid valve leaflets are normal. There is no tricuspid valve stenosis. There is trace tricuspid valve regurgitation. No pulmonary hypertension, estimated pulmonary arterial systolic pressure is 13 mmHg and systemic blood pressure of 147 mmHg in systole. Pericardium/Pleural The pericardium appears normal. There is no pericardial effusion. No pleural effusion visualized. Inferior Vena Cava Not well visualized inferior vena cava with >50% collapse upon inspiration consistent with normal right atrial pressure, 8 mmHg. Aorta The aortic measurements are indexed to age and body surface area. The aortic root at the sinus of Valsalva is not well visualized. The prox ascending aorta is not well visualized. Summary 1. Left ventricle size is normal and systolic function is normal. Estimated ejection fraction is 50-55%. There is normal diastolic function. 2. Right ventricle chamber size is normal and systolic function is normal. Estimated RVSP is 13 mmHg. 3. There is mild aortic valve sclerosis with no stenosis and no regurgitation. 4. There is trace mitral valve regurgitation. Mild MAC. 5. There is trace tricuspid valve regurgitation. Report Signatures Finalized by Randell Zavala on 08/04/2025 01:46 AM
[2025-08-02] MEDS: LACTULOSE SYRUP 20 GM/30 ML UDC PO (22:47)
[2025-08-03] VITALS (7 sets, daily range): BP systolic 125–151; BP diastolic 88–107; PULSE 90–103; RESP 12–98; TEMP 36.4–36.7; O2SAT 95–100; BMI 23.4
[2025-08-03] MEDS: LACTULOSE SYRUP 20 GM/30 ML UDC PO (05:27)
--- NOTE | 2025-08-03 07:51 | PD.RESPRO ---
Documentation for date of: 08/03/25 Subjective Subjective Interval history: Required wrist restraints overnight for agitation CIWA 12-21 overnight. HR 90-100s, RR 14-23, BP appropriate. 0 BM Patient denies new concerns at this time, good appetite. AOx1 Exam Vital Signs Temp Pulse Resp BP Pulse Ox O2 Del Method O2 Flow Rate 98.0 F 103 H 12 147/98 H 99 Room Air 1 08/03/25 04:00 08/03/25 04:00 08/03/25 04:00 08/03/25 04:00 08/03/25 04:00 08/03/25 04:00 08/01/25 20:11 Narrative Exam General: No acute distress, lying in bed Eye: PERRL, EOMI, normal conjunctiva, no scleral icterus HENT: Normocephalic, atraumatic, normal hearing, moist oral mucosa Neck: Supple, non-tender, no JVD, no lymphadenopathy Lungs: Clear to auscultation bilaterally, non-labored respirations, symmetric chest rise, no use of accessory muscles Heart: Normal S1 and S2, no S3 or S4 appreciated. Normal rate and regular rhythm, no murmurs, rubs gallops, or edema. Peripheral pulses intact bilaterally, capillary refill brisk distally Abdomen: Soft, non-tender, non-distended. Has umbilical hernia, reducible, no TTP Musculoskeletal: Normal range of motion and strength, no tenderness or swelling Skin: Skin is warm, dry, no rashes or lesions. Neurologic: Alert, awake and oriented x1. CN II-XII grossly intact. No focal neuro deficits. No signs of meningeal irritation noted. Psychiatric: Cooperative, appropriate mood and affect. Loose associations, poor insight and judgment CIWA: Nausea/vomitin Tremor: 0 Paroxysmal sweats: 0 Anxiety: 2 Agitation: 4 Tactile disturbance: 2 Auditory disturbance: 0 Visual disturbance: 0 Headache/fullness in head: 3 Orientation/clouding of sensorium: 3 Total: 14 Objective Labs 08/03/25 08:21 08/03/25 06:50 Quality Measures Quality Measures VTE prophylaxis Assessment & Plan Assessment Current Active Medications: Generic Name Dose Route Start Last Admin Trade Name Freq PRN Reason Stop Dose Admin Acetaminophen 650 mg 07/31/25 03:44 08/01/25 02:58 Acetaminophen 325 Mg Tablet PO 08/30/25 03:43 650 mg Q6HR PRN Administration PAIN (1-3) OR FEVER > 100.4 Chlordiazepoxide HCl 25 mg 07/31/25 03:10 08/03/25 03:20 Chlordiazepoxide Hcl 25 Mg Capsule PO 08/05/25 03:09 25 mg Q8H KELLY Administration Enoxaparin Sodium 40 mg 07/31/25 09:00 08/02/25 09:19 Enoxaparin Sod Inj 40 Mg/0.4 Ml Syringe SC 08/14/25 08:59 40 mg QDAY KELLY Administration Folic Acid 1 mg 07/31/25 00:10 08/02/25 10:25 Folic Acid Inj 1 Mg/0.2 Ml IVP 08/30/25 00:09 1 mg QDAY KELLY Administration Lactulose 20 gm 08/02/25 22:30 08/03/25 05:27 Lactulose Syrup 20 Gm/30 Ml Udc PO 09/01/25 22:29 20 gm TID KELLY Administration Protocol Levetiracetam 500 mg 07/31/25 09:00 08/02/25 21:17 Levetiracetam Inj 100 Mg/Ml Vial 5ml IVP 08/30/25 08:59 500 mg Q12HR KELLY Administration Lorazepam 0.5 mg 07/31/25 00:20 07/31/25 16:54 Lorazepam 0.5 Mg Tablet PO 08/05/25 00:19 0.5 mg Q2H PRN Administration CIWA 2-6 Lorazepam 2 mg 07/31/25 01:29 Lorazepam 2 Mg/Ml Vial IVP Q5MIN PRN seizure breakthrough Lorazepam 2 mg 08/01/25 15:31 08/02/25 21:17 Lorazepam 2 Mg/Ml Vial IVP 08/05/25 00:21 2 mg Q2H PRN Administration CIWA 12-20 Lorazepam 1 mg 08/01/25 15:31 08/02/25 04:10 Lorazepam 2 Mg/Ml Vial IVP 08/05/25 00:20 1 mg Q2H PRN Administration CIWA 7-11 Polyethylene Glycol 17 gm 07/31/25 11:45 08/02/25 09:20 Polyethylene Glycol 17 Gm Packet PO 08/30/25 11:44 17 gm QDAY KELLY Administration Thiamine HCl 100 mg 07/31/25 09:00 08/02/25 09:19 Thiamine Inj 100 Mg/Ml Vial 2 Ml IVP 08/30/25 08:59 100 mg QDAY KELLY Administration Plan Mr. Singh is a 60 y/o male with PMH epilepsy, medication noncompliance, alcohol use disorder who presented to the ED on 07/31 after two witnessed tonic clonic seizures that both aborted after 2 minutes without pharmaceutical intervention, return to baseline b/w seizures. #Acute encephalopathy #Hyperammonemia 08/01 patient was somnolent Ammonia 60 May be 2/2 ammonemia, benzos for CIWA Tried to decrease CIWA benzo doses and held Librium for acute encephalopathy, patient became even more agitated with CIWA scores as high as 21. Restarted Librium and increased CIWA benzo doses Plan: - Lactulose 20 mg PO TID --> 30 mg PO TID - Can consider LP if mentation does not improve with current management #Epilepsy #Medication noncompliance Patient unsure what medication he takes and is noncompliant with medication. Tried calling Pharmacy ([facility] in [place], ), but closed for holiday Had 2 tonic clonic seizures at home, return to baseline between seizures, second seizure witnessed, both aborted at ~2 minutes without pharmacological intervention CT head negative for acute hemorrhage, mass effect, midline shift. Cortical atrophy present EEG was inconclusive due to patient excessive movement. Could not obtain repeat EEG as patient was noncompliant (though order says it was taken) In ED patient received a total of 2.5 g of Keppra s/p IVF 1L Seizures most likely 2/2 medication noncompliance. Seizure most likely causing fever, elevated CK given no source of infection identified. Plan: - Consulted neurology, appreciate recs ? Keppra 500 mg twice daily ? Lorazepam 2 mg IV for breakthrough seizures ? Seizure precautions ? Aspiration precautions - CTM vitals - Pt to refrain from driving, confirmed patient does not drive or have a car #Alcohol use disorder #Hepatic steatosis #Transaminitis (mildly elevated, downtrending) #Hyperbilirubinemia #Thrombocytopenia Drinks six pack beer daily. Last drink was 07/30. UDS + benzo Given patient's very low platelet count and liver damage, it would be advisable to avoid using phenobarbital No active s/sx of bleeding Mild to no coagulopathy (PT slightly prolonged but INR and PTT WNL) Hepatitis panel non reactive. B12, folate, TSH WNL. BAL <3 Abd US: gallbladder sludge. No cholelithiasis or cholecystitis. Hepatic steatosis Cirrhosis and esophageal varices seen on CTA chest Plan: ? CIWA protocol ? CIWA 2-6 --> lorazepam 0.5 mg PO q2h PRN ? CIWA 7-11 --> lorazepam 2 mg IV q2h PRN ? CIWA 12?20 --> lorazepam 4 mg IV q2h PRN ? Chlordiazepoxide 25 mg q8h ? Thiamine 500 mg IV x 1 followed by 100 mg IV daily ? Folic acid 1 mg IV daily ? Seizure precautions ? Aspiration precautions - Hold lovenox if plt <50 - CTM with daily CMP #Severe QTc prolongation #type I AV block with KS interval of 222 EKG on arrival showed QTc 570 ms --> 516 --> 502 Type I AV block: Seen on telemetry, KS interval of 22, but patient denies symptoms of chest pain, palpitation, syncope. Patient at risk for life-threatening arrhythmias, particularly torsades de points TSH WNL Plan ? Keep potassium above 4 and magnesium above 2 ? Telemetry ? Avoid QTc prolonging drugs - Patient will need close follow-up with cardiology outpatient and have extensive ischemic workup done outpatient. #Elevated D dimer D dimer 652 CTA chest: No PE No s/sx DVT on exam Plan: - CTM for s/sx PE/DVT #SIRS - resolved Febrile, tachycardic. No leukocytosis, no end-organ damage, no source of infection Fever most likely 2/2 seizures Procal, CRP WNL. ESR high (55) Plan: - CTM vitals #Hypotonic hyponatremia Na 129, osm 257 Most likely hypovolemic, patient appears dry Given 1L IVF in ED Plan: - Maintenance IVF 100 mL/hr x1 bag - CTM with daily CMP #Umbilical hernia Reducible, no TTP Plan: - f/u outpatient Checklist Dispo: [facility] protocol Lines: PIV Diet: Regular Bowel Reg: Polyethylene glycose 17 g PO daily, Lactulose 30 mg PO TID VTE ppx: Lovenox 40 mg subQ daily (hold if plt <50) GI ppx: n/a Pain mgmt: Tylenol PRN Code status: full Plan discussed with Dr. Vernon Celestin MD PGY1 Attending Provider Attestation/Addendum I have seen and examined the patient. I was physically present for the hogan portions of the services provided including history, physical exam, diagnosis, treatment plans and orders. I agree with assessment and plan of care as documented by residents. Even though this this note was carefully revised there may still be minor errors in forestry supervisor due to voice recognition software. Tahir Junior MD
[2025-08-03] MEDS: ENOXAPARIN SOD INJ 40 MG/0.4 ML SYRINGE SC (08:40)
[2025-08-03] MEDS: FOLIC ACID INJ 1 MG/0.2 ML IVP (08:42)
[2025-08-03] MEDS: levETIRAcetam INJ 100 MG/ML VIAL 5ML 500 MG IVP ×2 (08:42→20:55)
[2025-08-03] MEDS: THIAMINE INJ 100 MG/ML VIAL 2 ML IVP (08:43)
[2025-08-03] MEDS: POLYETHYLENE GLYCOL 17 GM PACKET PO (08:43)
[2025-08-03 09:12] LABS: Basophils # (Auto) 0.1 Thou/mm3 (0.0-0.2); Basophils % (Auto) 2 % (0-2.5); Eosinophils # (Auto) 0.2 Thou/mm3 (0.0-0.5); Eosinophils % (Auto) 4 % (0-10); Hematocrit 44.0 % (41.0-53.0); Hemoglobin 14.8 g/dL (13.5-16.0); Immature Granulocytes Auto 0.02 Thou/mm3 (0.00-0.00); Lymphocytes # (Auto) 1.0 Thou/mm3 (1.0-4.8); Lymphocytes % (Auto) 20 % (10-50); Mean Corpuscular HGB Conc 33.6 g/dl (31.0-37.0); Mean Corpuscular Hemoglobin 33.5 pg (25.0-35.0); Mean Corpuscular Volume 100 fL (80-100); Monocytes # (Auto) 1.0 Thou/mm3 (0.0-0.8); Monocytes % (Auto) 18 % (0-12); Neutrophils # (Auto) 2.9 Thou/mm3 (1.8-7.7); Neutrophils % (Auto) 56 % (37-80); Nucleated Red Blood Cell # 0.00 Thou/mm3 (0.00-0.00); Nucleated Red Blood Cell % 0 /100 WBC (0); Platelet Count 90 Thou/mm3 (140-440); RDW Standard Deviation 47.7 fL (35.1-43.9); Red Blood Count 4.42 Miln/mm3 (4.50-5.90); White Blood Count 5.2 Thou/mm3 (3.8-10.6)
[2025-08-03 10:25] LABS: Alanine Aminotransferase 73 U/L (10-49); Albumin, Serum 4.0 gm/dL (3.5-5.0); Albumin/Globulin Ratio 0.9 (1.2-2.2); Alkaline Phosphatase 96 U/L (46-116); Anion Gap 11 (7-16); Aspartate Amino Transferase 124 U/L (0-34); BUN/Creatinine Ratio 15 Ratio (12-20); Bilirubin,Total 2.2 mg/dL (0.3-1.2); Blood Urea Nitrogen 9 mg/dL (9-23); Calcium 9.4 mg/dL (8.3-10.6); Calcium (Corrected) 9.4 mg/dL (8.5-10.1); Carbon Dioxide 20.2 mMol/L (20.0-31.0); Chloride 106 mMol/L (98-107); Creatinine (Component) 0.6 mg/dL (0.6-1.3); Estimated Creatinine Clearance 142.9 mL/min (>60); Globulin 4.6 gm/dL (2.3-3.5); Glucose 105 mg/dL (74-106); Magnesium 1.9 mg/dL (1.6-2.6); Osmolality,Calculated 272 (275-295); Phosphorous 3.7 mg/dL (2.4-5.1); Potassium 4.0 mMol/L (3.4-5.1); Sodium 137 mMol/L (136-145); Total Protein 8.6 gm/dL (5.7-8.2); eGFR > 60 See Note
[2025-08-03] MEDS: LORazepam 2 MG/ML VIAL 1 MG IVP (10:44)
--- NOTE | 2025-08-03 11:08 | PD.RESPRO ---
Documentation for date of: 08/03/25 Subjective Subjective Interval history: The patient is a 60-year-old male with a past medical history of seizures, currently on Keppra (levetiracetam) for seizure management, but with a history of medication noncompliance. He also has a history of alcohol use, and was recently living homeless before staying with his sister. The patient presented to [facility] on 07/31/2025 after experiencing two tonic-clonic seizures on the same day, both lasting approximately 2 minutes. The first seizure occurred in the morning while watching TV, and the second occurred later in the afternoon. Notable symptoms preceding the seizures included nausea and vomiting (4 episodes). The patient was postictal after the second seizure, presenting with confusion and urinary incontinence. After the seizure, the patient reported shortness of breath, but denied any other symptoms. According to the patient's sister, he has not been following up with medical appointments for the last 3 weeks and has been noncompliant with his seizure medications during this time. ED Course: Initial Vitals: Temperature: 98?F,Blood Pressure: 175/109 mmHg , Heart Rate: 108 bpm ,Respiratory Rate: 18 breaths/min, Oxygen Saturation: 98% on room air Notable Labs:WBC: Normal,Platelets: 67 (low, potentially indicating thrombocytopenia or alcohol-related liver dysfunction),Sodium: 132 (mild hyponatremia),Creatinine: 0.6 (normal),T. Bilirubin: 2.6 (elevated, suggests possible liver dysfunction or hemolysis),D. Bilirubin: 0.9 (elevated),AST: 104 (elevated, suggests liver injury or alcohol-related damage),ALT: 51 (elevated, though less concerning than AST),CK (Creatine Kinase): 935 (elevated, possibly due to muscle injury from seizures),Troponin: Negative (no evidence of myocardial injury),Vitamin B12: 802 (normal),Urine Toxicology: Positive for benzodiazepines, which may have been administered in the ED.D-dimer: 652 (elevated, but no evidence of pulmonary embolism on CTPA) Imaging:CTPA: No evidence of pulmonary thromboembolism (PE) ED Treatment: Keppra 2.5 g IV Lactated Ringer?s 1L for hydration Magnesium sulfate 2g IV (likely for seizure prophylaxis or correcting hypomagnesemia) Lorazepam 2 mg IV (for seizure control) Past medical history as above Past surgical history none Allergies ibuprofen Medication Keppra Family history denies any family history of heart problems, diabetes,Hypertension Social history drinks 6 packs of 24 ounces daily, denies smoking or any illicit drug use. Hospital Course: QTc Prolongation: Noted QTc prolongation of about 500 ms on telemetry, which is concerning for potential arrhythmias. Electrolyte Imbalance: Hypokalemia and hypomagnesemia, likely exacerbated by alcohol use, seizure activity, and possible poor nutritional intake. Telemetry: The patient was noted to have type I AV block with a MS interval of 22, which may be related to electrolyte abnormalities or medications. The patient denied any symptoms of chest pain, shortness of breath, or palpitations. Cardiology Consult: Due to the QTc prolongation and electrolyte disturbances, a cardiology consultation was requested for further management recommendations. 08/03/2025-patient was seen at bedside and he denies any chest pain, chest palpitations, shortness of breath. He required physical restraints overnight for his increased agitation secondary to alcohol withdrawal and currently on CIWA protocol. No abnormal rhythms noted overnight. blood pressure is around 130s over 90s, pulse rate around 90s. Potassium is 4 and magnesium 1.9 Exam Vital Signs Temp Pulse Resp BP Pulse Ox O2 Del Method O2 Flow Rate 97.6 F 94 22 H 136/98 H 96 Room Air 1 08/03/25 08:00 08/03/25 10:06 08/03/25 10:06 08/03/25 08:00 08/03/25 08:00 08/03/25 04:00 08/01/25 20:11 Objective Labs 08/03/25 08:21 08/03/25 06:50 Labs: Laboratory Results - last 24 hr 08/03/25 08/03/25 06:50 08:21 WBC 5.2 RBC 4.42 L Hgb 14.8 Hct 44.0 MCV 100 MCH 33.5 MCHC 33.6 RDW Std Deviation 47.7 H Plt Count 90 L Neut % (Auto) 56 Lymph % (Auto) 20 [place] % (Auto) 18 H Eos % (Auto) 4 Baso % (Auto) 2 Neut # (Auto) 2.9 Lymph # (Auto) 1.0 [place] # (Auto) 1.0 H Eos # (Auto) 0.2 Baso # (Auto) 0.1 Immature Gran # (Auto) 0.02 H Absolute Nucleated RBC 0.00 Immature Gran % 0 Nucleated RBC % 0 Sodium 137 Potassium 4.0 D Chloride 106 Carbon Dioxide 20.2 Anion Gap 11 BUN 9 Creatinine 0.6 Estim Creat Clear Calc 142.9 eGFR > 60 BUN/Creatinine Ratio 15 Glucose 105 Calculated Osmolality 272 L Calcium 9.4 Corrected Calcium 9.4 Phosphorus 3.7 Magnesium 1.9 Total Bilirubin 2.2 H AST 124 H ALT 73 H Alkaline Phosphatase 96 Total Protein 8.6 H Albumin 4.0 Globulin 4.6 H Albumin/Globulin Ratio 0.9 L Quality Measures Quality Measures VTE prophylaxis Assessment & Plan Assessment Current Active Medications: Generic Name Dose Route Start Last Admin Trade Name Freq PRN Reason Stop Dose Admin Acetaminophen 650 mg 07/31/25 03:44 08/01/25 02:58 Acetaminophen 325 Mg Tablet PO 08/30/25 03:43 650 mg Q6HR PRN Administration PAIN (1-3) OR FEVER > 100.4 Chlordiazepoxide HCl 25 mg 07/31/25 03:10 08/03/25 10:36 Chlordiazepoxide Hcl 25 Mg Capsule PO 08/05/25 03:09 25 mg Q8H KELLY Administration Enoxaparin Sodium 40 mg 07/31/25 09:00 08/03/25 08:40 Enoxaparin Sod Inj 40 Mg/0.4 Ml Syringe SC 08/14/25 08:59 40 mg QDAY KELLY Administration Folic Acid 1 mg 07/31/25 00:10 08/03/25 08:42 Folic Acid Inj 1 Mg/0.2 Ml IVP 08/30/25 00:09 1 mg QDAY KELLY Administration Lactulose 20 gm 08/02/25 22:30 08/03/25 05:27 Lactulose Syrup 20 Gm/30 Ml Udc PO 09/01/25 22:29 20 gm TID KELLY Administration Protocol Levetiracetam 500 mg 07/31/25 09:00 08/03/25 08:42 Levetiracetam Inj 100 Mg/Ml Vial 5ml IVP 08/30/25 08:59 500 mg Q12HR KELLY Administration Lorazepam 0.5 mg 07/31/25 00:20 07/31/25 16:54 Lorazepam 0.5 Mg Tablet PO 08/05/25 00:19 0.5 mg Q2H PRN Administration CIWA 2-6 Lorazepam 2 mg 07/31/25 01:29 Lorazepam 2 Mg/Ml Vial IVP Q5MIN PRN seizure breakthrough Lorazepam 2 mg 08/01/25 15:31 08/02/25 21:17 Lorazepam 2 Mg/Ml Vial IVP 08/05/25 00:21 2 mg Q2H PRN Administration CIWA 12-20 Lorazepam 1 mg 08/01/25 15:31 08/03/25 10:44 Lorazepam 2 Mg/Ml Vial IVP 08/05/25 00:20 1 mg Q2H PRN Administration CIWA 7-11 Polyethylene Glycol 17 gm 07/31/25 11:45 08/03/25 08:43 Polyethylene Glycol 17 Gm Packet PO 08/30/25 11:44 17 gm QDAY KELLY Administration Thiamine HCl 100 mg 07/31/25 09:00 08/03/25 08:43 Thiamine Inj 100 Mg/Ml Vial 2 Ml IVP 08/30/25 08:59 100 mg QDAY KELLY Administration Plan 60-year-old male with past medical history of seizure disorder and alcohol use was admitted for alcohol withdrawal/seizure disorder treatment and management. Hospital course was notable for QTc prolongation and type I AV block with MS of 22. Cardiology was consulted for further evaluation. 1. Abnormal EKG with QTc prolongation 2. Type I AV block 3. Electrolyte abnormality including hypokalemia and hypomagnesemia 4. Essential Hypertension 5. Seizure disorder 6. Alcohol use Upon evaluation notable finding was QTc prolongation to more than 500, which is concerning for the potential development of arrhythmia. Electrolyte imbalances, including hypokalemia and hypomagnesemia, both can contribute to arrhythmias and further prolongation of QTc. On telemetry the patient had episode of type I AV block with MS interval of 222, patient denies any symptoms of chest pain, shortness of breath or palpitation. This might be related to the electrolyte disbalance or could be medication effect, The patient vital signs currently are stable. Recommendations 1. Electrolyte correction: Potassium and magnesium repletion are essential, keep magnesium above 2 and potassium above 4, monitor electrolytes replace as needed 2. QTc prolongation management: Monitor for any arrhythmias, aggressively replace magnesium IV to prevent any further QTc prolongation.Continue to avoid medications that prolong the QT interval.Reviewed the EKG and patient does have normal sinus rhythm or sinus tachycardia with right bundle branch block. Patient QTc actually is actually not significantly prolonged considering the RBBB and also patient does have hypokalemia and hypomagnesemia which could both contribute to the prolonged QTc. 3. Could not see type I AV block: No active management is required for type I AV block 4. Patient had episode of hypertension and tachycardia most likely in the setting of alcohol withdrawal, monitor vital signs 5. Extensive counseling regarding side effect of alcohol dependence. Rest of the chronic conditions to be managed by primary team. Patient care was discussed with attending physician Dr. Zavala. Audrey Drummond MD PGY1 Attending Provider Attestation/Addendum I have personally seen and examined the patient separately on the above date of service and discussed the plan of care with the resident. I reviewed the resident Dr. Audrey Drummond consultation progress note and agree with the resident findings and plan in the note above and have also edited the documentation to reflect my findings and plan. Randell Zavala M.D. Interventional Cardiology
[2025-08-03] MEDS: LACTULOSE SYRUP 20 GM/30 ML UDC 30 GM PO ×2 (13:11→21:00)
--- NOTE | 2025-08-03 18:04 | EKG_ITS ---
[facility] Test Date: 2025-08-03 Pat Name: IZABELA BAHENA Department: Room: S267A Gender: Male Title Investigator: CELI : 1965 Requested By: Audrey Drummond Order Number: [id number] Reading MD: Audrey Drummond Measurements Intervals [place] Rate: 98 P: 13 MA: 170 QRS: -85 QRSD: 143 T: -19 QT: 361 QTc: 462 Interpretive Statements SINUS RHYTHM RIGHT BUNDLE BRANCH BLOCK LEFT ANTERIOR FASCICULAR BLOCK POSSIBLE ANTERIOR MYOCARDIAL INFARCTION , OF INDETERMINATE AGE Compared to ECG 08/02/2025 07:04:04 Myocardial infarct finding now present T-wave abnormality no longer present Possible ischemia no longer present /store/S0/[id number].pdf
[2025-08-03] MEDS: Magnesium Sulfate 4 GM Ivpb 4 GM/50 ML BAG IV (18:15)
--- NOTE | 2025-08-03 23:33 | PD.VPROG1 ---
Telemedicine visit statement This visit was conducted with the use of interactive audio and video telecommunications system that permits real time communication between the patient and the provider. Patient's verbal consent for virtual visit was obtained on 08/03/25 at 2333. Documentation for date of: 08/03/25 Subjective Subjective Interval history: Patient reportedly is agitated requiring restraints. No sz overnight reported. Virtual exam Vital Signs Temp Pulse Resp BP Pulse Ox O2 Del Method O2 Flow Rate 98.0 F 92 16 125/89 H 95 Room Air 1 08/03/25 20:00 08/03/25 20:00 08/03/25 20:00 08/03/25 20:00 08/03/25 20:00 08/03/25 20:00 08/01/25 20:11 Objective Labs 08/03/25 08:21 08/03/25 06:50 Labs: Laboratory Results - last 24 hr 08/03/25 08/03/25 06:50 08:21 WBC 5.2 RBC 4.42 L Hgb 14.8 Hct 44.0 MCV 100 MCH 33.5 MCHC 33.6 RDW Std Deviation 47.7 H Plt Count 90 L Neut % (Auto) 56 Lymph % (Auto) 20 [place] % (Auto) 18 H Eos % (Auto) 4 Baso % (Auto) 2 Neut # (Auto) 2.9 Lymph # (Auto) 1.0 [place] # (Auto) 1.0 H Eos # (Auto) 0.2 Baso # (Auto) 0.1 Immature Gran # (Auto) 0.02 H Absolute Nucleated RBC 0.00 Immature Gran % 0 Nucleated RBC % 0 Sodium 137 Potassium 4.0 D Chloride 106 Carbon Dioxide 20.2 Anion Gap 11 BUN 9 Creatinine 0.6 Estim Creat Clear Calc 142.9 eGFR > 60 BUN/Creatinine Ratio 15 Glucose 105 Calculated Osmolality 272 L Calcium 9.4 Corrected Calcium 9.4 Phosphorus 3.7 Magnesium 1.9 Total Bilirubin 2.2 H AST 124 H ALT 73 H Alkaline Phosphatase 96 Total Protein 8.6 H Albumin 4.0 Globulin 4.6 H Albumin/Globulin Ratio 0.9 L Assessment & Plan Problem List (1) Recurrent seizures: Status: Acute Assessment and plan: on Keppra, even though it is from alcohol withdrawal. EEG: negative for epileptiform discharges (2) Alcohol withdrawal: Status: Acute Assessment and plan: continue with folate, thiamine and librium needs to be referred for alcohol rehab upon discharge to prevent recurrence.
[2025-08-04] VITALS (9 sets, daily range): BP systolic 100–177; BP diastolic 69–99; PULSE 90–110; RESP 16–98; TEMP 36.1–37; O2SAT 91–98; BMI 23.8; BMI 23.9
[2025-08-04] MEDS: LACTULOSE SYRUP 20 GM/30 ML UDC 30 GM PO ×2 (05:01→20:57)
[2025-08-04 06:51] LABS: Basophils # (Auto) 0.1 Thou/mm3 (0.0-0.2); Basophils % (Auto) 1 % (0-2.5); Eosinophils # (Auto) 0.2 Thou/mm3 (0.0-0.5); Eosinophils % (Auto) 3 % (0-10); Hematocrit 46.1 % (41.0-53.0); Hemoglobin 15.6 g/dL (13.5-16.0); Immature Granulocytes Auto 0.02 Thou/mm3 (0.00-0.00); Lymphocytes # (Auto) 1.1 Thou/mm3 (1.0-4.8); Lymphocytes % (Auto) 17 % (10-50); Mean Corpuscular HGB Conc 33.8 g/dl (31.0-37.0); Mean Corpuscular Hemoglobin 34.3 pg (25.0-35.0); Mean Corpuscular Volume 101 fL (80-100); Monocytes # (Auto) 1.2 Thou/mm3 (0.0-0.8); Monocytes % (Auto) 19 % (0-12); Neutrophils # (Auto) 3.7 Thou/mm3 (1.8-7.7); Neutrophils % (Auto) 59 % (37-80); Nucleated Red Blood Cell # 0.00 Thou/mm3 (0.00-0.00); Nucleated Red Blood Cell % 0 /100 WBC (0); Platelet Count 110 Thou/mm3 (140-440); RDW Standard Deviation 48.9 fL (35.1-43.9); Red Blood Count 4.55 Miln/mm3 (4.50-5.90); White Blood Count 6.3 Thou/mm3 (3.8-10.6)
[2025-08-04 06:53] LABS: Alanine Aminotransferase 87 U/L (10-49); Albumin, Serum 4.3 gm/dL (3.5-5.0); Albumin/Globulin Ratio 0.9 (1.2-2.2); Alkaline Phosphatase 113 U/L (46-116); Anion Gap 11 (7-16); Aspartate Amino Transferase 122 U/L (0-34); BUN/Creatinine Ratio 15 Ratio (12-20); Bilirubin,Total 1.9 mg/dL (0.3-1.2); Blood Urea Nitrogen 12 mg/dL (9-23); Calcium 9.8 mg/dL (8.3-10.6); Calcium (Corrected) 9.8 mg/dL (8.5-10.1); Carbon Dioxide 23.2 mMol/L (20.0-31.0); Chloride 105 mMol/L (98-107); Creatinine (Component) 0.8 mg/dL (0.6-1.3); Estimated Creatinine Clearance 107.2 mL/min (>60); Globulin 4.7 gm/dL (2.3-3.5); Glucose 99 mg/dL (74-106); Magnesium 2.3 mg/dL (1.6-2.6); Osmolality,Calculated 277 (275-295); Phosphorous 4.3 mg/dL (2.4-5.1); Potassium 4.6 mMol/L (3.4-5.1); Sodium 139 mMol/L (136-145); Total Protein 9.0 gm/dL (5.7-8.2); eGFR > 60 See Note
--- NOTE | 2025-08-04 08:34 | ESPR_ITS ---
Documentation for date of: 08/04/25 Subjective Subjective Interval history: The patient is a 60-year-old male with a past medical history of seizures, currently on Keppra (levetiracetam) for seizure management, but with a history of medication noncompliance. He also has a history of alcohol use, and was recently living homeless before staying with his sister. The patient presented to [facility] on 07/31/2025 after experiencing two tonic-clonic seizures on the same day, both lasting approximately 2 minutes. The first seizure occurred in the morning while watching TV, and the second occurred later in the afternoon. Notable symptoms preceding the seizures included nausea and vomiting (4 episodes). The patient was postictal after the second seizure, presenting with confusion and urinary incontinence. After the seizure, the patient reported shortness of breath, but denied any other symptoms. According to the patient's sister, he has not been following up with medical appointments for the last 3 weeks and has been noncompliant with his seizure medications during this time. ED Course: Initial Vitals: Temperature: 98?F,Blood Pressure: 175/109 mmHg , Heart Rate: 108 bpm ,Respiratory Rate: 18 breaths/min, Oxygen Saturation: 98% on room air Notable Labs:WBC: Normal,Platelets: 67 (low, potentially indicating thrombocytopenia or alcohol-related liver dysfunction),Sodium: 132 (mild hyponatremia),Creatinine: 0.6 (normal),T. Bilirubin: 2.6 (elevated, suggests possible liver dysfunction or hemolysis),D. Bilirubin: 0.9 (elevated),AST: 104 (elevated, suggests liver injury or alcohol-related damage),ALT: 51 (elevated, though less concerning than AST),CK (Creatine Kinase): 935 (elevated, possibly due to muscle injury from seizures),Troponin: Negative (no evidence of myocardial injury),Vitamin B12: 802 (normal),Urine Toxicology: Positive for benzodiazepines, which may have been administered in the ED.D-dimer: 652 (elevated, but no evidence of pulmonary embolism on CTPA) Imaging:CTPA: No evidence of pulmonary thromboembolism (PE) ED Treatment: Keppra 2.5 g IV Lactated Ringer?s 1L for hydration Magnesium sulfate 2g IV (likely for seizure prophylaxis or correcting hypomagnesemia) Lorazepam 2 mg IV (for seizure control) Past medical history as above Past surgical history none Allergies ibuprofen Medication Kepp Family history denies any family history of heart problems, diabetes,Hypertension Social history drinks 6 packs of 24 ounces daily, denies smoking or any illicit drug use. Hospital Course: QTc Prolongation: Noted QTc prolongation of about 500 ms on telemetry, which is concerning for potential arrhythmias. Electrolyte Imbalance: Hypokalemia and hypomagnesemia, likely exacerbated by alcohol use, seizure activity, and possible poor nutritional intake. Telemetry: The patient was noted to have type I AV block with a IL interval of 22, which may be related to electrolyte abnormalities or medications. The patient denied any symptoms of chest pain, shortness of breath, or palpitations. Cardiology Consult: Due to the QTc prolongation and electrolyte disturbances, a cardiology consultation was requested for further management recommendations. 08/03/2025-patient was seen at bedside and he denies any chest pain, chest palpitations, shortness of breath. He required physical restraints overnight for his increased agitation secondary to alcohol withdrawal and currently on CIWA protocol. No abnormal rhythms noted overnight. blood pressure is around 130s over 90s, pulse rate around 90s. Potassium is 4 and magnesium 1.9 08/04/2025: Labs reviewed and patient examined at the bedside. CIWA score ranging from 3 to 4. No abnormal rhythms overnight. Continue manage electrolyte disturbances. Denies chest pain, palpation, SOB, abdominal pain, N/V, fevers or chills. Exam Vital Signs Temp Pulse Resp BP Pulse Ox O2 Del Method O2 Flow Rate 98.4 F 103 H 18 177/81 H 96 Room Air 1 08/04/25 04:00 08/04/25 07:35 08/04/25 07:35 08/04/25 04:00 08/04/25 04:00 08/04/25 04:00 08/01/25 20:11 Narrative Exam General: AOx3, no acute distress, able to speak full sentences, poor oral hygiene HEENT: NC/AT, mucous membranes moist, Cardiovascular: regular rate and rhythm, S1/S2 present, no murmurs appreciated Pulmonary: clear to auscultation bilaterally, no rales/rhonchi/wheezes Abdominal: soft, non-tender, mild distention, umbilical hernia, no rebound/guarding, normal bowel sounds present Musculoskeletal: normal ROM, no peripheral edema Skin: warm and dry, intact, no rashes, Neuro: CN II-XII intact, no focal deficits Objective Labs 08/05/25 04:59 08/05/25 04:59 Labs: Laboratory Results - last 24 hr 08/03/25 08/03/25 08/04/25 06:50 08:21 05:45 WBC 5.2 6.3 RBC 4.42 L 4.55 Hgb 14.8 15.6 Hct 44.0 46.1 MCV 100 101 H MCH 33.5 34.3 MCHC 33.6 33.8 RDW Std Deviation 47.7 H 48.9 H Plt Count 90 L 110 L D Neut % (Auto) 56 59 Lymph % (Auto) 20 17 [place] % (Auto) 18 H 19 H Eos % (Auto) 4 3 Baso % (Auto) 2 1 Neut # (Auto) 2.9 3.7 Lymph # (Auto) 1.0 1.1 [place] # (Auto) 1.0 H 1.2 H Eos # (Auto) 0.2 0.2 Baso # (Auto) 0.1 0.1 Immature Gran # (Auto) 0.02 H 0.02 H Absolute Nucleated RBC 0.00 0.00 Immature Gran % 0 0 Nucleated RBC % 0 0 Sodium 137 139 Potassium 4.0 D 4.6 D Chloride 106 105 Carbon Dioxide 20.2 23.2 Anion Gap 11 11 BUN 9 12 Creatinine 0.6 0.8 Estim Creat Clear Calc 142.9 107.2 eGFR > 60 > 60 BUN/Creatinine Ratio 15 15 Glucose 105 99 Calculated Osmolality 272 L 277 Calcium 9.4 9.8 Corrected Calcium 9.4 9.8 Phosphorus 3.7 4.3 Magnesium 1.9 2.3 Total Bilirubin 2.2 H 1.9 H AST 124 H 122 H ALT 73 H 87 H Alkaline Phosphatase 96 113 Total Protein 8.6 H 9.0 H Albumin 4.0 4.3 Globulin 4.6 H 4.7 H Albumin/Globulin Ratio 0.9 L 0.9 L Quality Measures Quality Measures VTE prophylaxis Assessment & Plan Assessment Current Active Medications: Generic Name Dose Route Start Last Admin Trade Name Freq PRN Reason Stop Dose Admin Acetaminophen 650 mg 07/31/25 03:44 08/01/25 02:58 Acetaminophen 325 Mg Tablet PO 08/30/25 03:43 650 mg Q6HR PRN Administration PAIN (1-3) OR FEVER > 100.4 Chlordiazepoxide HCl 25 mg 07/31/25 03:10 08/04/25 03:14 Chlordiazepoxide Hcl 25 Mg Capsule PO 08/05/25 03:09 25 mg Q8H KELLY Administration Enoxaparin Sodium 40 mg 07/31/25 09:00 08/03/25 08:40 Enoxaparin Sod Inj 40 Mg/0.4 Ml Syringe SC 08/14/25 08:59 40 mg QDAY KELLY Administration Folic Acid 1 mg 07/31/25 00:10 08/03/25 08:42 Folic Acid Inj 1 Mg/0.2 Ml IVP 08/30/25 00:09 1 mg QDAY KELLY Administration Lactulose 30 gm 08/03/25 14:00 08/04/25 05:01 Lactulose Syrup 20 Gm/30 Ml Udc PO 09/02/25 13:59 30 gm TID KELLY Administration Protocol Levetiracetam 500 mg 07/31/25 09:00 08/03/25 20:55 Levetiracetam Inj 100 Mg/Ml Vial 5ml IVP 08/30/25 08:59 500 mg Q12HR KELLY Administration Lorazepam 0.5 mg 07/31/25 00:20 07/31/25 16:54 Lorazepam 0.5 Mg Tablet PO 08/05/25 00:19 0.5 mg Q2H PRN Administration CIWA 2-6 Lorazepam 2 mg 07/31/25 01:29 Lorazepam 2 Mg/Ml Vial IVP Q5MIN PRN seizure breakthrough Lorazepam 2 mg 08/03/25 12:56 Lorazepam 2 Mg/Ml Vial IVP 08/05/25 00:20 Q2H PRN CIWA 7-11 Lorazepam 4 mg 08/03/25 12:56 Lorazepam 2 Mg/Ml Vial IVP 08/05/25 00:21 Q2H PRN CIWA 12-20 Polyethylene Glycol 17 gm 07/31/25 11:45 08/03/25 08:43 Polyethylene Glycol 17 Gm Packet PO 08/30/25 11:44 17 gm QDAY KELLY Administration Thiamine HCl 100 mg 07/31/25 09:00 08/03/25 08:43 Thiamine Inj 100 Mg/Ml Vial 2 Ml IVP 08/30/25 08:59 100 mg QDAY KELLY Administration Plan 60-year-old male with past medical history of seizure disorder and alcohol use was admitted for alcohol withdrawal/seizure disorder treatment and management. Hospital course was notable for QTc prolongation and type I AV block with IL of 22. Cardiology was consulted for further evaluation. 1. Abnormal EKG with QTc prolongation 2. Type I AV block 3. Electrolyte abnormality including hypokalemia and hypomagnesemia 4. Essential Hypertension 5. Seizure disorder 6. Alcohol use Upon evaluation notable finding was QTc prolongation to more than 500, which was concerning for the potential development of arrhythmia. Electrolyte imbalances, including hypokalemia and hypomagnesemia, both can contribute to arrhythmias and further prolongation of QTc. On telemetry the patient had episode of type I AV block with IL interval of 222, patient denies any symptoms of chest pain, shortness of breath or palpitation. This might be related to the electrolyte disbalance or could be medication effect, The patient vital signs currently are stable. Recommendations 1. Electrolyte correction: Potassium and magnesium repletion are essential, keep magnesium above 2 and potassium above 4, monitor electrolytes replace as needed 2. QTc prolongation management: Monitor for any arrhythmias, aggressively replace magnesium IV to prevent any further QTc prolongation.Continue to avoid medications that prolong the QT interval.Reviewed the EKG and patient does have normal sinus rhythm or sinus tachycardia with right bundle branch block. Patient QTc actually is actually not significantly prolonged considering the RBBB and also patient does have hypokalemia and hypomagnesemia which could both contribute to the prolonged QTc. 3. No active management is required for type I AV block 4. Patient had episode of hypertension and tachycardia most likely in the setting of alcohol withdrawal, monitor vital signs 5. Alcohol dependence. Counseling Assessment and plan discussed with my attending physician Dr. Sally Lucas (PGY-1) - Internal medicine resident Attending Provider Attestation/Addendum I have personally seen and examined the patient separately on the above date of service and discussed the plan of care with the resident. I reviewed the resident Dr. Ron Lucas consultation progress note and agree with the resident findings and plan in the note above and have also edited the documentation to reflect my findings and plan. Randell Zavala M.D. Interventional Cardiology
[2025-08-04] MEDS: POLYETHYLENE GLYCOL 17 GM PACKET PO (08:58)
[2025-08-04] MEDS: THIAMINE INJ 100 MG/ML VIAL 2 ML IVP (08:58)
[2025-08-04] MEDS: ENOXAPARIN SOD INJ 40 MG/0.4 ML SYRINGE SC (08:58)
[2025-08-04] MEDS: levETIRAcetam INJ 100 MG/ML VIAL 5ML 500 MG IVP (08:59)
[2025-08-04] MEDS: FOLIC ACID INJ 1 MG/0.2 ML IVP (09:50)
--- NOTE | 2025-08-04 10:07 | PC.SS ---
rounding note; Patient is altered per report. Patient going through alcohol withdrawal. SS will provide alcohol rehab resources. Neuro consulting. SS will follow up with financial counselor. Notes indicate they already attempted to assist in applying for [facility] [employer]. The computers were down.
--- NOTE | 2025-08-04 11:44 | ESPR_ITS ---
<Statement entered by Alberto Garduno MD - 08/04/25 13:08> No acute overnight events. Seen and examined at bedside and patient alert but only oriented to name and birthdate, not to place or year. Sitter present but CIWA last 24 hours ranged from 1-5. Thus, Librium decreased to 25 mg twice daily from 3 times daily. To space with neurology who recommended to discontinue Keppra as patient likely presenting with alcohol withdrawal seizures. Cardiology also consulted for prolonged QT and per evaluation QTc likely not significantly prolonged considering RBBB in addition to hypokalemia and hypomagnesemia. No further evaluation required. Echo ordered and largely unremarkable. ----- Note reviewed and agree with care plan as documented. Please refer to the note below for further details. Plan discussed with attending physician Dr. Vernon Garduno MD PGY-2 Internal Medicine Documentation for date of: 08/04/25 Subjective Subjective Interval history: Patient had no acute overnight events. Patient is drowsy upon examination today. Decreased librium to daily due to patient being drowsy. If patient is agitated will increase it. Decreased lactulose to BID. Patient had 3 BM's overnight. Patient's CIWA score was 4 this morning. Patient has no complaints, vital signs are stable. Exam Vital Signs Temp Pulse Resp BP Pulse Ox O2 Del Method O2 Flow Rate 98.1 F 99 18 124/88 H 97 Room Air 1 08/04/25 08:00 08/04/25 08:00 08/04/25 08:00 08/04/25 08:00 08/04/25 08:00 08/04/25 08:00 08/01/25 20:11 Narrative Exam General: No acute distress, lying in bed Eye: PERRL, EOMI, normal conjunctiva, no scleral icterus HENT: Normocephalic, atraumatic, normal hearing, moist oral mucosa Neck: Supple, non-tender, no JVD, no lymphadenopathy Lungs: Clear to auscultation bilaterally, non-labored respirations, symmetric chest rise, no use of accessory muscles Heart: Normal S1 and S2. Normal rate and regular rhythm, no murmurs, rubs gallops, or edema. Peripheral pulses intact bilaterally, capillary refill brisk distally Abdomen: Soft, non-tender, non-distended. Has umbilical hernia, reducible, no TTP Musculoskeletal: Normal range of motion and strength, no tenderness or swelling Skin: Skin is warm, dry, no rashes or lesions. Neurologic: Alert, awake and oriented x2. CN II-XII grossly intact. No focal neuro deficits. No signs of meningeal irritation noted. Psychiatric: Cooperative, appropriate mood and affect. Objective Labs 08/04/25 05:45 08/04/25 05:45 Labs: Laboratory Results - last 24 hr 08/04/25 05:45 WBC 6.3 RBC 4.55 Hgb 15.6 Hct 46.1 MCV 101 H MCH 34.3 MCHC 33.8 RDW Std Deviation 48.9 H Plt Count 110 L D Neut % (Auto) 59 Lymph % (Auto) 17 [place] % (Auto) 19 H Eos % (Auto) 3 Baso % (Auto) 1 Neut # (Auto) 3.7 Lymph # (Auto) 1.1 [place] # (Auto) 1.2 H Eos # (Auto) 0.2 Baso # (Auto) 0.1 Immature Gran # (Auto) 0.02 H Absolute Nucleated RBC 0.00 Immature Gran % 0 Nucleated RBC % 0 Sodium 139 Potassium 4.6 D Chloride 105 Carbon Dioxide 23.2 Anion Gap 11 BUN 12 Creatinine 0.8 Estim Creat Clear Calc 107.2 eGFR > 60 BUN/Creatinine Ratio 15 Glucose 99 Calculated Osmolality 277 Calcium 9.8 Corrected Calcium 9.8 Phosphorus 4.3 Magnesium 2.3 Total Bilirubin 1.9 H AST 122 H ALT 87 H Alkaline Phosphatase 113 Total Protein 9.0 H Albumin 4.3 Globulin 4.7 H Albumin/Globulin Ratio 0.9 L Quality Measures Quality Measures VTE prophylaxis Assessment & Plan Assessment Current Active Medications: Generic Name Dose Route Start Last Admin Trade Name Freq PRN Reason Stop Dose Admin Acetaminophen 650 mg 07/31/25 03:44 08/01/25 02:58 Acetaminophen 325 Mg Tablet PO 08/30/25 03:43 650 mg Q6HR PRN Administration PAIN (1-3) OR FEVER > 100.4 Chlordiazepoxide HCl 25 mg 08/04/25 21:00 Chlordiazepoxide Hcl 25 Mg Capsule PO 08/09/25 20:59 Q12HR KELLY Enoxaparin Sodium 40 mg 07/31/25 09:00 08/04/25 08:58 Enoxaparin Sod Inj 40 Mg/0.4 Ml Syringe SC 08/14/25 08:59 40 mg QDAY KELLY Administration Folic Acid 1 mg 07/31/25 00:10 08/04/25 09:50 Folic Acid Inj 1 Mg/0.2 Ml IVP 08/30/25 00:09 1 mg QDAY KELLY Administration Lactulose 30 gm 08/03/25 14:00 08/04/25 05:01 Lactulose Syrup 20 Gm/30 Ml Udc PO 09/02/25 13:59 30 gm TID KELLY Administration Protocol Levetiracetam 500 mg 07/31/25 09:00 08/04/25 08:59 Levetiracetam Inj 100 Mg/Ml Vial 5ml IVP 08/30/25 08:59 500 mg Q12HR KELLY Administration Lorazepam 0.5 mg 07/31/25 00:20 07/31/25 16:54 Lorazepam 0.5 Mg Tablet PO 08/05/25 00:19 0.5 mg Q2H PRN Administration CIWA 2-6 Lorazepam 2 mg 07/31/25 01:29 Lorazepam 2 Mg/Ml Vial IVP Q5MIN PRN seizure breakthrough Lorazepam 2 mg 08/03/25 12:56 Lorazepam 2 Mg/Ml Vial IVP 08/05/25 00:20 Q2H PRN CIWA 7-11 Lorazepam 4 mg 08/03/25 12:56 Lorazepam 2 Mg/Ml Vial IVP 08/05/25 00:21 Q2H PRN CIWA 12-20 Polyethylene Glycol 17 gm 07/31/25 11:45 08/04/25 08:58 Polyethylene Glycol 17 Gm Packet PO 08/30/25 11:44 17 gm QDAY KELLY Administration Thiamine HCl 100 mg 07/31/25 09:00 08/04/25 08:58 Thiamine Inj 100 Mg/Ml Vial 2 Ml IVP 08/30/25 08:59 100 mg QDAY KELLY Administration Plan Mr. Singh is a 60 y/o male with PMHx epilepsy, medication noncompliance, alcohol use disorder who presented to the ED on 07/31 after two witnessed tonic clonic seizures that both aborted after 2 minutes without pharmaceutical intervention, return to baseline b/w seizures. #Acute encephalopathy #Hyperammonemia 08/01 patient was somnolent Ammonia 60 May be 2/2 ammonemia, benzos for CIWA Tried to decrease CIWA benzo doses and held Librium for acute encephalopathy, patient became even more agitated with CIWA scores as high as 21. Restarted Librium and increased CIWA benzo doses Plan: - Lactulose 30 mg PO TID -> BID (3+ BM's overnight) - Ordered Rifaximin - May perform LP if mentation does not improve with current management #Epilepsy #Medication noncompliance Patient unsure what medication he takes and is noncompliant with medication. Tried calling Pharmacy ([facility] in [place], ), but closed for holiday Had 2 tonic clonic seizures at home, return to baseline between seizures, second seizure witnessed, both aborted at ~[address] minutes without pharmacological intervention CT head negative for acute hemorrhage, mass effect, midline shift. Cortical atrophy present EEG was inconclusive due to patient excessive movement. Could not obtain repeat EEG as patient was noncompliant (though order says it was taken) In ED patient received a total of 2.5 g of Keppra s/p IVF 1L Seizures most likely 2/2 medication noncompliance. Seizure most likely causing fever, elevated CK given no source of infection identified. Plan: - Consulted neurology, appreciate recs ? DC'd keppra, per neuro, as seizures were from alcoholic withdrawal ? Lorazepam 2 mg IV for breakthrough seizures ? Seizure precautions ? Aspiration precautions - CTM vitals - Pt to refrain from driving, confirmed patient does not drive or have a car #Alcohol use disorder #Hepatic steatosis #Transaminitis (mildly elevated, downtrending) #Hyperbilirubinemia #Thrombocytopenia Drinks six pack beer daily. Last drink was 07/30. UDS + benzo Given patient's very low platelet count and liver damage, it would be advisable to avoid using phenobarbital No active s/sx of bleeding Mild to no coagulopathy (PT slightly prolonged but INR and PTT WNL) Hepatitis panel non reactive. B12, folate, TSH WNL. BAL <3 Abd US: gallbladder sludge. No cholelithiasis or cholecystitis. Hepatic steatosis Cirrhosis and esophageal varices seen on CTA chest Plan: ? CIWA protocol ? CIWA 2-6 --> lorazepam 0.5 mg PO q2h PRN ? CIWA 7-11 --> lorazepam 2 mg IV q2h PRN ? CIWA 12?20 --> lorazepam 4 mg IV q2h PRN ? Chlordiazepoxide 25 mg q8h -> q day 08/04; if agitated -> BID ? Thiamine 500 mg IV x 1 followed by 100 mg IV daily ? Folic acid 1 mg IV daily ? Seizure precautions ? Aspiration precautions - Hold lovenox if plt <50 - CTM with daily CMP #Severe QTc prolongation - resolved #type I AV block with ND interval of 222 EKG on arrival showed QTc 570 ms --> 516 --> 502 --> 462 (08/03) Type I AV block: Seen on telemetry, ND interval of 22, but patient denies symptoms of chest pain, palpitation, syncope. Patient at risk for life-threatening arrhythmias, particularly torsades de points TSH WNL Plan ? Keep potassium above 4 and magnesium above 2 ? Telemetry ? Avoid QTc prolonging drugs - Patient will need close follow-up with cardiology outpatient and have extensive ischemic workup done outpatient. #Elevated D dimer D dimer 652 CTA chest: No PE No s/sx DVT on exam Plan: - CTM for s/sx PE/DVT #SIRS - resolved Febrile, tachycardic. No leukocytosis, no end-organ damage, no source of infection Fever most likely 2/2 seizures Procal, CRP WNL. ESR high (55) Plan: - CTM vitals #Hypotonic hyponatremia - resolved Na 129, osm 257 Most likely hypovolemic, patient appears dry Given 1L IVF in ED Plan: - Maintenance IVF 100 mL/hr x1 bag - CTM with daily CMP #Umbilical hernia Reducible, no TTP Plan: - f/u outpatient Checklist Dispo: [facility] protocol Lines: PIV Diet: Regular Bowel Reg: Polyethylene glycose 17 g PO daily, Lactulose 30 mg PO TID VTE ppx: Lovenox 40 mg subQ daily (hold if plt <50) GI ppx: n/a Pain mgmt: Tylenol PRN Code status: full Patient plan of care was discussed with the attending physician, Dr. Junior & senior resident Dr. Victorino Burns MD PGY-1 Attending Provider Attestation/Addendum I have seen and examined the patient. I was physically present for the hogan portions of the services provided including history, physical exam, diagnosis, treatment plans and orders. I agree with assessment and plan of care as documented by residents. Patient seen and examined at bedside this morning. Appears sleepy but easily arousable. Continues to be confused, unable to answer questions appropriately. Remains calm, CIWA score has been around 4. Patient had multiple bowel movements, we will decrease his frequency of lactulose from 30 mg 3 times daily to twice daily. Discussed with neurology, patient had negative EEG results, we will discontinue Keppra as recommended. Continues to be on CIWA protocol, we will taper his Librium down and continue with as needed lorazepam. Even though this this note was carefully revised there may still be minor errors in stallion manager due to voice recognition software. Tahir Junior MD
[2025-08-04] MEDS: ACETAMINOPHEN 325 MG TABLET 650 MG PO ×2 (12:59→20:57)
--- NOTE | 2025-08-04 18:22 | ESPR_ITS ---
Documentation for date of: 08/04/25 Subjective Subjective Interval history: Patient seen at bedside. No seizures reported overnight. Family members assisting with cutting patient's hair. Patient reports feeling fine. He seems somewhat coherent, however speech difficult to understand at times. CIWA has ranged 1-5 in the last 24 hours. Librium was downtitrated. Patient had a repeat EEG taken on 08/01 due to agitation obscuring results of EEG on 07/31. Pending read of new EEG. Patient was unable to tell who initially prescribed him Keppra. Discontinued Keppra as patient history of seizures seem consistent with alcohol withdrawal seizures. Monitor for 24 hours and if seizure free and withdrawal symptoms resolved can be discharged without seizure medications, if the EEG negative. Exam Vital Signs Temp Pulse Resp BP Pulse Ox O2 Del Method O2 Flow Rate 98.0 F 100 16 125/77 95 Room Air 1 08/04/25 16:00 08/04/25 16:00 08/04/25 16:00 08/04/25 16:00 08/04/25 16:00 08/04/25 16:00 08/01/25 20:11 Narrative Exam Physical Exam General: Awake and in no acute distress. Conversational however speech somewhat difficult to understand, disheveled appearing. HEENT: Normocephalic, atraumatic, mucous membranes moist. Heart: Regular rate and rhythm, normal S1 and S2, no murmurs. Lungs: Clear to auscultation with no wheezing or crackles. Abdomen: Significant ventral abdominal hernia, reducible. Soft, nontender, positive bowel sounds. ?No guarding or rebound tenderness. Neurologic: Alert and oriented x3, no gross neurological deficit, and patient able to move all 4 extremities. Strength 5/5 upper and lower extremities. No upper extremity tremor noted with outstretched arms. Extremities: No edema. Skin: No rash or ecchymoses. Objective Labs 08/04/25 05:45 08/04/25 05:45 Labs: Laboratory Results - last 24 hr 08/04/25 05:45 WBC 6.3 RBC 4.55 Hgb 15.6 Hct 46.1 MCV 101 H MCH 34.3 MCHC 33.8 RDW Std Deviation 48.9 H Plt Count 110 L D Neut % (Auto) 59 Lymph % (Auto) 17 [place] % (Auto) 19 H Eos % (Auto) 3 Baso % (Auto) 1 Neut # (Auto) 3.7 Lymph # (Auto) 1.1 [place] # (Auto) 1.2 H Eos # (Auto) 0.2 Baso # (Auto) 0.1 Immature Gran # (Auto) 0.02 H Absolute Nucleated RBC 0.00 Immature Gran % 0 Nucleated RBC % 0 Sodium 139 Potassium 4.6 D Chloride 105 Carbon Dioxide 23.2 Anion Gap 11 BUN 12 Creatinine 0.8 Estim Creat Clear Calc 107.2 eGFR > 60 BUN/Creatinine Ratio 15 Glucose 99 Calculated Osmolality 277 Calcium 9.8 Corrected Calcium 9.8 Phosphorus 4.3 Magnesium 2.3 Total Bilirubin 1.9 H AST 122 H ALT 87 H Alkaline Phosphatase 113 Total Protein 9.0 H Albumin 4.3 Globulin 4.7 H Albumin/Globulin Ratio 0.9 L Quality Measures Quality Measures VTE prophylaxis Assessment & Plan Assessment Current Active Medications: Generic Name Dose Route Start Last Admin Trade Name Freq PRN Reason Stop Dose Admin Acetaminophen 650 mg 07/31/25 03:44 08/04/25 12:59 Acetaminophen 325 Mg Tablet PO 08/30/25 03:43 650 mg Q6HR PRN Administration PAIN (1-3) OR FEVER > 100.4 Chlordiazepoxide HCl 25 mg 08/05/25 09:00 Chlordiazepoxide Hcl 25 Mg Capsule PO 08/10/25 08:59 DAILY KELLY Enoxaparin Sodium 40 mg 07/31/25 09:00 08/04/25 08:58 Enoxaparin Sod Inj 40 Mg/0.4 Ml Syringe SC 08/14/25 08:59 40 mg QDAY KLELY Administration Folic Acid 1 mg 07/31/25 00:10 08/04/25 09:50 Folic Acid Inj 1 Mg/0.2 Ml IVP 08/30/25 00:09 1 mg QDAY KELLY Administration Lactulose 30 gm 08/04/25 21:00 Lactulose Syrup 20 Gm/30 Ml Udc PO 09/03/25 20:59 BID KELLY Protocol Lorazepam 0.5 mg 07/31/25 00:20 07/31/25 16:54 Lorazepam 0.5 Mg Tablet PO 08/05/25 00:19 0.5 mg Q2H PRN Administration CIWA 2-6 Lorazepam 2 mg 07/31/25 01:29 Lorazepam 2 Mg/Ml Vial IVP Q5MIN PRN seizure breakthrough Lorazepam 2 mg 08/03/25 12:56 Lorazepam 2 Mg/Ml Vial IVP 08/05/25 00:20 Q2H PRN CIWA 7-11 Lorazepam 4 mg 08/03/25 12:56 Lorazepam 2 Mg/Ml Vial IVP 08/05/25 00:21 Q2H PRN CIWA 12-20 Polyethylene Glycol 17 gm 07/31/25 11:45 08/04/25 08:58 Polyethylene Glycol 17 Gm Packet PO 08/30/25 11:44 17 gm QDAY KELLY Administration Rifaximin 550 mg 08/04/25 21:00 Rifaximin 550 Mg Tablet PO 08/11/25 20:59 BID KELLY Thiamine HCl 100 mg 07/31/25 09:00 08/04/25 08:58 Thiamine Inj 100 Mg/Ml Vial 2 Ml IVP 08/30/25 08:59 100 mg QDAY KELLY Administration Plan 60-year-old male with past medical history of alcohol use disorder and questionable seizure disorder who presented to the ED on 07/31/2025 after two witnessed tonic-clonic seizures at home, admitted for alcohol withdrawal protocol and neurology was consulted for further management of seizures. #Alcohol withdrawal seizures Patient came in with tonic-clonic seizures witnessed by sister, self aborted after 2 minutes. Reportedly on seizure medication with poor compliance but also had history of alcohol withdrawal seizures, often these patients will be started on seizure medication without epilepsy condition. Additionally, seizure medication itself when stopped can cause seizures in non-epileptic patients. Keppra itself may also cause agitation. -Stop levetiracetam -Monitor for seizures in the next 24-48 hours -repeat EEG 08/01: Negative for epileptiform discharges -Agree with downtitrating Librium -Monitor CIWA #History of alcohol use disorder Patient drinks 6 pack of beer daily. -Continue thiamine and folate -Recommend rehab following discharge #Acute hepatic encephalopathy #Hyperammonemia Patient has been not at baseline with agitation episodes, lethargy, and confusion this admission. Ammonia level was 60. -Continue with lactulose titrated to 2-3 BMs daily Rest of conditions to continue current management per primary team: #Alcohol related liver disease #Elevated LFTs #Hyperbilirubinemia #Thrombocytopenia #Type 1 AV block #Umbilical hernia Patient was discussed with the Neurology attending, Dr. Chacon. Thank you for allowing us to participate in the care of this patient. Milady Umaña, PGY-3 Attending Provider Attestation/Addendum I personally have seen and examined the patient at the bedside and agree with resident's findings, assessment and plan of care. As the repeat EEG showed no epileptiform discharges, and his seizures are secondary to alcohol withdrawal, we will discontinue Keppra and watch him for 24 to 48 hours for any recurrence before discharge. Continue with the thiamine and folate and monitor him for alcohol withdrawal. Needs to be given resources for alcohol rehab upon discharge.
[2025-08-04] MEDS: LORazepam 2 MG/ML VIAL IVP ×2 (21:00→23:54)
[2025-08-05] VITALS (7 sets, daily range): BP systolic 112–135; BP diastolic 80–97; PULSE 89–108; RESP 14–18; TEMP 36.2–36.7; O2SAT 96–99; BMI 23.9
[2025-08-05 05:43] LABS: Basophils # (Auto) 0.1 Thou/mm3 (0.0-0.2); Basophils % (Auto) 1 % (0-2.5); Eosinophils # (Auto) 0.3 Thou/mm3 (0.0-0.5); Eosinophils % (Auto) 5 % (0-10); Hematocrit 43.9 % (41.0-53.0); Hemoglobin 15.0 g/dL (13.5-16.0); Immature Granulocytes Auto 0.01 Thou/mm3 (0.00-0.00); Lymphocytes # (Auto) 1.6 Thou/mm3 (1.0-4.8); Lymphocytes % (Auto) 30 % (10-50); Mean Corpuscular HGB Conc 34.2 g/dl (31.0-37.0); Mean Corpuscular Hemoglobin 33.6 pg (25.0-35.0); Mean Corpuscular Volume 98 fL (80-100); Monocytes # (Auto) 1.1 Thou/mm3 (0.0-0.8); Monocytes % (Auto) 20 % (0-12); Neutrophils # (Auto) 2.3 Thou/mm3 (1.8-7.7); Neutrophils % (Auto) 43 % (37-80); Nucleated Red Blood Cell # 0.00 Thou/mm3 (0.00-0.00); Nucleated Red Blood Cell % 0 /100 WBC (0); Platelet Count 115 Thou/mm3 (140-440); RDW Standard Deviation 45.9 fL (35.1-43.9); Red Blood Count 4.47 Miln/mm3 (4.50-5.90); White Blood Count 5.2 Thou/mm3 (3.8-10.6)
[2025-08-05] MEDS: ACETAMINOPHEN 325 MG TABLET 650 MG PO ×2 (05:55→15:46)
[2025-08-05 07:22] LABS: Alanine Aminotransferase 85 U/L (10-49); Albumin, Serum 3.9 gm/dL (3.5-5.0); Alkaline Phosphatase 99 U/L (46-116); Anion Gap 10 (7-16); Aspartate Amino Transferase 103 U/L (0-34); BUN/Creatinine Ratio 18 Ratio (12-20); Bilirubin,Total 1.8 mg/dL (0.3-1.2); Blood Urea Nitrogen 14 mg/dL (9-23); Calcium 9.5 mg/dL (8.3-10.6); Calcium (Corrected) 9.6 mg/dL (8.5-10.1); Carbon Dioxide 21.0 mMol/L (20.0-31.0); Chloride 106 mMol/L (98-107); Creatinine (Component) 0.8 mg/dL (0.6-1.3); Estimated Creatinine Clearance 103.9 mL/min (>60); Glucose 98 mg/dL (74-106); Magnesium 1.7 mg/dL (1.6-2.6); Osmolality,Calculated 274 (275-295); Phosphorous 4.2 mg/dL (2.4-5.1); Potassium 3.6 mMol/L (3.4-5.1); Sodium 137 mMol/L (136-145); eGFR > 60 See Note
[2025-08-05] MEDS: LACTULOSE SYRUP 20 GM/30 ML UDC 30 GM PO ×2 (09:17→20:37)
[2025-08-05] MEDS: FOLIC ACID INJ 1 MG/0.2 ML IVP (09:18)
[2025-08-05] MEDS: ENOXAPARIN SOD INJ 40 MG/0.4 ML SYRINGE SC (09:18)
[2025-08-05] MEDS: POLYETHYLENE GLYCOL 17 GM PACKET PO (09:18)
[2025-08-05] MEDS: THIAMINE INJ 100 MG/ML VIAL 2 ML IVP (09:19)
--- NOTE | 2025-08-05 09:47 | ESPR_ITS ---
Documentation for date of: 08/05/25 Subjective Subjective Interval history: The patient is a 60-year-old male with a past medical history of seizures, currently on Keppra (levetiracetam) for seizure management, but with a history of medication noncompliance. He also has a history of alcohol use, and was recently living homeless before staying with his sister. The patient presented to [facility] on 07/31/2025 after experiencing two tonic-clonic seizures on the same day, both lasting approximately 2 minutes. The first seizure occurred in the morning while watching TV, and the second occurred later in the afternoon. Notable symptoms preceding the seizures included nausea and vomiting (4 episodes). The patient was postictal after the second seizure, presenting with confusion and urinary incontinence. After the seizure, the patient reported shortness of breath, but denied any other symptoms. According to the patient's sister, he has not been following up with medical appointments for the last 3 weeks and has been noncompliant with his seizure medications during this time. ED Course: Initial Vitals: Temperature: 98?F,Blood Pressure: 175/109 mmHg , Heart Rate: 108 bpm ,Respiratory Rate: 18 breaths/min, Oxygen Saturation: 98% on room air Notable Labs:WBC: Normal,Platelets: 67 (low, potentially indicating thrombocytopenia or alcohol-related liver dysfunction),Sodium: 132 (mild hyponatremia),Creatinine: 0.6 (normal),T. Bilirubin: 2.6 (elevated, suggests possible liver dysfunction or hemolysis),D. Bilirubin: 0.9 (elevated),AST: 104 (elevated, suggests liver injury or alcohol-related damage),ALT: 51 (elevated, though less concerning than AST),CK (Creatine Kinase): 935 (elevated, possibly due to muscle injury from seizures),Troponin: Negative (no evidence of myocardial injury),Vitamin B12: 802 (normal),Urine Toxicology: Positive for benzodiazepines, which may have been administered in the ED.D-dimer: 652 (elevated, but no evidence of pulmonary embolism on CTPA) Imaging:CTPA: No evidence of pulmonary thromboembolism (PE) ED Treatment: Keppra 2.5 g IV Lactated Ringer?s 1L for hydration Magnesium sulfate 2g IV (likely for seizure prophylaxis or correcting hypomagnesemia) Lorazepam 2 mg IV (for seizure control) Past medical history as above Past surgical history none Allergies ibuprofen Medication Kepp Family history denies any family history of heart problems, diabetes,Hypertension Social history drinks 6 packs of 24 ounces daily, denies smoking or any illicit drug use. Hospital Course: QTc Prolongation: Noted QTc prolongation of about 500 ms on telemetry, which is concerning for potential arrhythmias. Electrolyte Imbalance: Hypokalemia and hypomagnesemia, likely exacerbated by alcohol use, seizure activity, and possible poor nutritional intake. Telemetry: The patient was noted to have type I AV block with a WI interval of 22, which may be related to electrolyte abnormalities or medications. The patient denied any symptoms of chest pain, shortness of breath, or palpitations. Cardiology Consult: Due to the QTc prolongation and electrolyte disturbances, a cardiology consultation was requested for further management recommendations. 08/03/2025-patient was seen at bedside and he denies any chest pain, chest palpitations, shortness of breath. He required physical restraints overnight for his increased agitation secondary to alcohol withdrawal and currently on CIWA protocol. No abnormal rhythms noted overnight. blood pressure is around 130s over 90s, pulse rate around 90s. Potassium is 4 and magnesium 1.9 08/04/2025: Labs reviewed and patient examined at the bedside. CIWA score ranging from 3 to 4. No abnormal rhythms overnight. Continue manage electrolyte disturbances. Denies chest pain, palpation, SOB, abdominal pain, N/V, fevers or chills. 08/05/2025: Labs reviewed and patient examined at the bedside. Patient's Potassium 4.6, Mag 1.7, and phos4.2. Gave patient K+ 40meq PO x1 and 20meq po x1 at 4pm, Mag IV 4g Denies chest pain, palpation, SOB, abdominal pain, N/V, fevers or chills. Exam Vital Signs Temp Pulse Resp BP Pulse Ox O2 Del Method O2 Flow Rate 97.9 F 104 H 18 116/80 99 Room Air 1 08/05/25 08:00 08/05/25 08:00 08/05/25 08:00 08/05/25 08:00 08/05/25 08:00 08/05/25 08:00 08/01/25 20:11 Narrative Exam General: AOx3, no acute distress, able to speak full sentences, poor oral hygiene HEENT: NC/AT, mucous membranes moist, Cardiovascular: regular rate and rhythm, S1/S2 present, no murmurs appreciated Pulmonary: clear to auscultation bilaterally, no rales/rhonchi/wheezes Abdominal: soft, non-tender, mild distention, umbilical hernia, no rebound/guarding, normal bowel sounds present Musculoskeletal: normal ROM, no peripheral edema Skin: warm and dry, intact, no rashes, Neuro: CN II-XII intact, no focal deficits Objective Labs 08/05/25 04:59 08/05/25 04:59 Labs: Laboratory Results - last 24 hr 08/05/25 04:59 WBC 5.2 RBC 4.47 L Hgb 15.0 Hct 43.9 MCV 98 MCH 33.6 MCHC 34.2 RDW Std Deviation 45.9 H Plt Count 115 L Neut % (Auto) 43 Lymph % (Auto) 30 [place] % (Auto) 20 H Eos % (Auto) 5 Baso % (Auto) 1 Neut # (Auto) 2.3 Lymph # (Auto) 1.6 [place] # (Auto) 1.1 H Eos # (Auto) 0.3 Baso # (Auto) 0.1 Immature Gran # (Auto) 0.01 H Absolute Nucleated RBC 0.00 Immature Gran % 0 Nucleated RBC % 0 Sodium 137 Potassium 3.6 D Chloride 106 Carbon Dioxide 21.0 Anion Gap 10 BUN 14 Creatinine 0.8 Estim Creat Clear Calc 103.9 eGFR > 60 BUN/Creatinine Ratio 18 Glucose 98 Calculated Osmolality 274 L Calcium 9.5 Corrected Calcium 9.6 Phosphorus 4.2 Magnesium 1.7 Total Bilirubin 1.8 H AST 103 H ALT 85 H Alkaline Phosphatase 99 Albumin 3.9 Quality Measures Quality Measures VTE prophylaxis Assessment & Plan Assessment Current Active Medications: Generic Name Dose Route Start Last Admin Trade Name Freq PRN Reason Stop Dose Admin Acetaminophen 650 mg 07/31/25 03:44 08/05/25 05:55 Acetaminophen 325 Mg Tablet PO 08/30/25 03:43 650 mg Q6HR PRN Administration PAIN (1-3) OR FEVER > 100.4 Enoxaparin Sodium 40 mg 07/31/25 09:00 08/05/25 09:18 Enoxaparin Sod Inj 40 Mg/0.4 Ml Syringe SC 08/14/25 08:59 40 mg QDAY KELLY Administration Folic Acid 1 mg 07/31/25 00:10 08/05/25 09:18 Folic Acid Inj 1 Mg/0.2 Ml IVP 08/30/25 00:09 1 mg QDAY KELLY Administration Lactulose 30 gm 08/04/25 21:00 08/05/25 09:17 Lactulose Syrup 20 Gm/30 Ml Udc PO 09/03/25 20:59 30 gm BID KELLY Administration Protocol Lorazepam 2 mg 07/31/25 01:29 Lorazepam 2 Mg/Ml Vial IVP Q5MIN PRN seizure breakthrough Polyethylene Glycol 17 gm 07/31/25 11:45 08/05/25 09:18 Polyethylene Glycol 17 Gm Packet PO 08/30/25 11:44 17 gm QDAY KELLY Administration Rifaximin 550 mg 08/04/25 21:00 08/05/25 09:17 Rifaximin 550 Mg Tablet PO 08/11/25 20:59 550 mg BID KELLY Administration Thiamine HCl 100 mg 07/31/25 09:00 08/05/25 09:19 Thiamine Inj 100 Mg/Ml Vial 2 Ml IVP 08/30/25 08:59 100 mg QDAY KELLY Administration Plan 60-year-old male with past medical history of seizure disorder and alcohol use was admitted for alcohol withdrawal/seizure disorder treatment and management. Hospital course was notable for QTc prolongation and type I AV block with WI of 22. Cardiology was consulted for further evaluation. 1. Abnormal EKG with QTc prolongation 2. Type I AV block 3. Electrolyte abnormality including hypokalemia and hypomagnesemia 4. Essential Hypertension 5. Seizure disorder 6. Alcohol use Upon evaluation notable finding was QTc prolongation to more than 500, which was concerning for the potential development of arrhythmia. Electrolyte imbalances, including hypokalemia and hypomagnesemia, both can contribute to arrhythmias and further prolongation of QTc. On telemetry the patient had episode of type I AV block with WI interval of 222, patient denies any symptoms of chest pain, shortness of breath or palpitation. This might be related to the electrolyte disbalance or could be medication effect, The patient vital signs currently are stable. Recommendations 1. Electrolyte correction: Potassium and magnesium repletion are essential, keep magnesium above 2 and potassium above 4, monitor electrolytes replace as needed 2. QTc prolongation management: Monitor for any arrhythmias, aggressively replace magnesium IV to prevent any further QTc prolongation.Continue to avoid medications that prolong the QT interval.Reviewed the EKG and patient does have normal sinus rhythm or sinus tachycardia with right bundle branch block. Patient QTc actually is actually not significantly prolonged considering the RBBB and also patient does have hypokalemia and hypomagnesemia which could both contribute to the prolonged QTc. 3. No active management is required for type I AV block 4. Patient had episode of hypertension and tachycardia most likely in the setting of alcohol withdrawal, monitor vital signs 5. Alcohol dependence. Counseling Assessment and plan discussed with my attending physician Dr. Sally Lucas (PGY-1) - Internal medicine resident Attending Provider Attestation/Addendum I have personally seen and examined the patient separately on the above date of service and discussed the plan of care with the resident. I reviewed the resident Dr. Ron Lucas consultation progress note and agree with the resident findings and plan in the note above and have also edited the documentation to reflect my findings and plan. Randell Zavala M.D. Interventional Cardiology
--- NOTE | 2025-08-05 12:07 | ESPR_ITS ---
<Statement entered by Alberto Garduno MD - 08/05/25 13:52> No acute overnight events. Seen and examined at bedside and patient appears to be more awake compared to yesterday. Librium has been completely discontinued at this time and CIWA scores have remained relatively stable with maximum score of 8, but likely due to his severe headaches. He continues to be only alert and oriented to self and birthdate. Per neurology recommendations we will continue to monitor for another 24 to 48 hours as Keppra has been discontinued. ----- Note reviewed and agree with care plan as documented. Please refer to the note below for further details. Plan discussed with attending physician Dr. Estela Garduno MD PGY-2 Internal Medicine Documentation for date of: 08/05/25 Subjective Subjective Interval history: No acute events overnight. Patient's HR continues to be hanging around 100. Patient continues to be non-agitated with low CIWA scores, occasionally has tangential speech which can appear as confusion. Is able to answer questions and is A&Ox3 though. We are having the librium prn, keeping patient in hospital for 24-48 more hours to assess for seizures. Exam Vital Signs Temp Pulse Resp BP Pulse Ox O2 Del Method O2 Flow Rate 98.0 F 96 18 115/88 H 99 Room Air 1 08/05/25 11:38 08/05/25 11:38 08/05/25 11:38 08/05/25 11:38 08/05/25 11:38 08/05/25 11:38 08/01/25 20:11 Narrative Exam General: No acute distress, lying in bed Eye: PERRL, EOMI, normal conjunctiva, no scleral icterus HENT: Normocephalic, atraumatic, normal hearing, moist oral mucosa Neck: Supple, non-tender, no JVD, no lymphadenopathy Lungs: Clear to auscultation bilaterally, non-labored respirations, symmetric chest rise, no use of accessory muscles Heart: Normal S1 and S2. Normal rate and regular rhythm, no murmurs, rubs gallops, or edema. Peripheral pulses intact bilaterally, capillary refill brisk distally Abdomen: Soft, non-tender, non-distended. Has umbilical hernia, reducible, no TTP Musculoskeletal: Normal range of motion and strength, no tenderness or swelling Skin: Skin is warm, dry, no rashes or lesions. Neurologic: Alert, awake and oriented x3. CN II-XII grossly intact. No focal neuro deficits. No signs of meningeal irritation noted. Psychiatric: Cooperative, appropriate mood and affect, occasional tangential speech. Objective Labs 08/06/25 05:28 08/06/25 05:28 Labs: Laboratory Results - last 24 hr 08/05/25 04:59 WBC 5.2 RBC 4.47 L Hgb 15.0 Hct 43.9 MCV 98 MCH 33.6 MCHC 34.2 RDW Std Deviation 45.9 H Plt Count 115 L Neut % (Auto) 43 Lymph % (Auto) 30 [place] % (Auto) 20 H Eos % (Auto) 5 Baso % (Auto) 1 Neut # (Auto) 2.3 Lymph # (Auto) 1.6 [place] # (Auto) 1.1 H Eos # (Auto) 0.3 Baso # (Auto) 0.1 Immature Gran # (Auto) 0.01 H Absolute Nucleated RBC 0.00 Immature Gran % 0 Nucleated RBC % 0 Sodium 137 Potassium 3.6 D Chloride 106 Carbon Dioxide 21.0 Anion Gap 10 BUN 14 Creatinine 0.8 Estim Creat Clear Calc 103.9 eGFR > 60 BUN/Creatinine Ratio 18 Glucose 98 Calculated Osmolality 274 L Calcium 9.5 Corrected Calcium 9.6 Phosphorus 4.2 Magnesium 1.7 Total Bilirubin 1.8 H AST 103 H ALT 85 H Alkaline Phosphatase 99 Albumin 3.9 Quality Measures Quality Measures VTE prophylaxis Assessment & Plan Assessment Current Active Medications: Generic Name Dose Route Start Last Admin Trade Name Freq PRN Reason Stop Dose Admin Acetaminophen 650 mg 07/31/25 03:44 08/05/25 05:55 Acetaminophen 325 Mg Tablet PO 08/30/25 03:43 650 mg Q6HR PRN Administration PAIN (1-3) OR FEVER > 100.4 Chlordiazepoxide HCl 25 mg 08/05/25 10:11 Chlordiazepoxide Hcl 25 Mg Capsule PO 08/10/25 10:10 Q8HR PRN AGITATION OR ANXIETY Enoxaparin Sodium 40 mg 07/31/25 09:00 08/05/25 09:18 Enoxaparin Sod Inj 40 Mg/0.4 Ml Syringe SC 08/14/25 08:59 40 mg QDAY KELLY Administration Folic Acid 1 mg 07/31/25 00:10 08/05/25 09:18 Folic Acid Inj 1 Mg/0.2 Ml IVP 08/30/25 00:09 1 mg QDAY KELLY Administration Magnesium Sulfate 4 gm in 50 mls @ 12.5 mls/hr 08/05/25 10:24 Magnesium Sulfate Ivpb IV 08/05/25 14:23 X1 ONE Lactulose 30 gm 08/04/25 21:00 08/05/25 09:17 Lactulose Syrup 20 Gm/30 Ml Udc PO 09/03/25 20:59 30 gm BID KELLY Administration Protocol Lorazepam 2 mg 07/31/25 01:29 Lorazepam 2 Mg/Ml Vial IVP Q5MIN PRN seizure breakthrough Polyethylene Glycol 17 gm 07/31/25 11:45 08/05/25 09:18 Polyethylene Glycol 17 Gm Packet PO 08/30/25 11:44 17 gm QDAY KELLY Administration Potassium Chloride 20 meq 08/05/25 16:00 Potassium Chloride 20 Meq Tabcr PO 08/05/25 16:01 X1 ONE Rifaximin 550 mg 08/04/25 21:00 08/05/25 09:17 Rifaximin 550 Mg Tablet PO 08/11/25 20:59 550 mg BID KELLY Administration Thiamine HCl 100 mg 07/31/25 09:00 08/05/25 09:19 Thiamine Inj 100 Mg/Ml Vial 2 Ml IVP 08/30/25 08:59 100 mg QDAY KELLY Administration Plan Mr. Singh is a 60 y/o male with PMHx epilepsy, medication noncompliance, alcohol use disorder who presented to the ED on 07/31 after two witnessed tonic clonic seizures that both aborted after 2 minutes without pharmaceutical intervention, return to baseline b/w seizures. Weaning down CIWA medications, CIWA score has been low today, will continue to monitor for seizures. #Alcohol use disorder #Hepatic steatosis #Transaminitis (mildly elevated, downtrending) #Hyperbilirubinemia #Thrombocytopenia Drinks six pack beer daily. Last drink was 07/30. UDS + benzo Given patient's very low platelet count and liver damage, it would be advisable to avoid using phenobarbital No active s/sx of bleeding Mild to no coagulopathy (PT slightly prolonged but INR and PTT WNL) Hepatitis panel non reactive. B12, folate, TSH WNL. BAL <3 Abd US: gallbladder sludge. No cholelithiasis or cholecystitis. Hepatic steatosis Cirrhosis and esophageal varices seen on CTA chest Plan: ? CIWA protocol ? CIWA 2-6 --> lorazepam 0.5 mg PO q2h PRN ? CIWA 7-11 --> lorazepam 2 mg IV q2h PRN ? CIWA 12?20 --> lorazepam 4 mg IV q2h PRN ? Chlordiazepoxide 25 mg q8h -> q day 08/04; PRN 08/05 - monitoring for seizures next 24-48 hrs ? Thiamine 500 mg IV x 1 followed by 100 mg IV daily ? Folic acid 1 mg IV daily ? Seizure precautions ? Aspiration precautions - Hold lovenox if plt <50 - CTM with daily CMP #Acute encephalopathy #Hyperammonemia 08/01: patient was somnolent, resolved, however patient appears to have occasional tangential speech Ammonia 60. Thought to have been due to ammonemia, benzos for CIWA. Tried to decrease CIWA benzo doses and held Librium for acute encephalopathy, patient became even more agitated with CIWA scores as high as 21. Restarted Librium and increased CIWA benzo doses Plan: - Lactulose 30 mg PO BID - Rifaximin 550 mg PO BID #Epilepsy #Medication noncompliance Patient unsure what medication he takes and is noncompliant with medication. Tried calling Pharmacy ([facility] in [place], ), but closed for holiday Had 2 tonic clonic seizures at home, return to baseline between seizures, second seizure witnessed, both aborted at ~2 minutes without pharmacological intervention CT head negative for acute hemorrhage, mass effect, midline shift. Cortical atrophy present EEG was inconclusive due to patient excessive movement. Could not obtain repeat EEG as patient was noncompliant (though order says it was taken) In ED patient received a total of 2.5 g of Keppra s/p IVF 1L Seizures most likely 2/2 medication noncompliance. Seizure most likely causing fever, elevated CK given no source of infection identified. Plan: - Consulted neurology, appreciate recs ? DC'd keppra, per neuro, as seizures were from alcoholic withdrawal ? Lorazepam 2 mg IV for breakthrough seizures ? Seizure precautions ? Aspiration precautions - CTM vitals - Pt to refrain from driving or operating machinery, confirmed patient does not drive or have a car #Severe QTc prolongation - resolved #type I AV block with [place] interval of 222 EKG on arrival showed QTc 570 ms --> 516 --> 502 --> 462 (08/03) Type I AV block: Seen on telemetry, [place] interval of 22, but patient denies symptoms of chest pain, palpitation, syncope. Patient at risk for life-threatening arrhythmias, particularly torsades de points TSH WNL Plan ? Keep potassium above 4 and magnesium above 2 ? Telemetry ? Avoid QTc prolonging drugs - Patient will need close follow-up with cardiology outpatient and have extensive ischemic workup done outpatient. #Elevated D dimer D dimer 652 CTA chest: No PE No s/sx DVT on exam Plan: - CTM for s/sx PE/DVT #SIRS - resolved Febrile, tachycardic. No leukocytosis, no end-organ damage, no source of infection Fever most likely 2/2 seizures Procal, CRP WNL. ESR high (55) Plan: - CTM vitals #Hypotonic hyponatremia - resolved Na 129, osm 257 Most likely hypovolemic, patient appears dry Given 1L IVF in ED Plan: - Maintenance IVF 100 mL/hr x1 bag - CTM with daily CMP #Umbilical hernia Reducible, no TTP Plan: - f/u outpatient Checklist Dispo: Tele -> Med Tele 08/05 Lines: PIV Diet: Regular Bowel Reg: Polyethylene glycose 17 g PO daily, Lactulose 30 mg PO BID VTE ppx: Lovenox 40 mg subQ daily (hold if plt <50) GI ppx: n/a Pain mgmt: Tylenol PRN Code status: full Patient plan of care was discussed with the attending physician, Dr. Palmer & senior resident Dr. Victorino Burns MD PGY-1 Attending Provider Attestation/Addendum Antoinette, Laurel Palmer DO, attest that I was physically present for the hogan portions of the service and evaluated the patient with the resident and I reviewed and discussed the case with the resident and agree with the resident's findings and plans of care as documented above Patient seen and evaluated this AM. Patient is very tangential with speech. He has been off keppra for 24h as suspected seizures are 2/2 alcohol withdrawals. Patient states he ran out of his AEDs three days ago and began to explain that he drinks a beer every 6 hours. Patient endorses hearing voices calling out his name Adair, but does not say much more. He denies any tactile or visual hallucinations. CIWA score 10. Librium has been tapered, but will keep librium PRN. Will continue to monitor and remains seizure free.
[2025-08-05] MEDS: Magnesium Sulfate 4 GM Ivpb 4 GM/50 ML BAG IV (12:26)
[2025-08-05 13:10] LABS: Albumin/Globulin Ratio 0.8 (1.2-2.2); Globulin 4.9 gm/dL (2.3-3.5); Total Protein 8.8 gm/dL (5.7-8.2)
--- NOTE | 2025-08-05 15:40 | PD.RESPRO ---
Documentation for date of: 08/05/25 Subjective Subjective Interval history: No acute events overnight.?Patient seen and examined at bedside this afternoon.?Patient is responsive, but quite difficult to understand, does not enunciate words. Labs and vitals were reviewed and were within baseline range.?Patient is complaining of epigastric abdominal pain however exam is benign, hernia is distended but reducible. Difficult to elucidate patient's exact feelings due to his speech. CIWA 4-5 today. Librium was changed to prn. Currently monitoring for seizures another 24 hours and if seizure-free likely will discharge tomorrow. Exam Vital Signs Temp Pulse Resp BP Pulse Ox O2 Del Method O2 Flow Rate 98.0 F 93 18 115/88 H 99 Room Air 1 08/05/25 11:38 08/05/25 12:00 08/05/25 11:38 08/05/25 11:38 08/05/25 11:38 08/05/25 11:38 08/01/25 20:11 Narrative Exam Physical Exam General: Awake and in no acute distress. Conversational however speech somewhat difficult to understand, disheveled appearing. HEENT: Normocephalic, atraumatic, mucous membranes moist. Heart: Regular rate and rhythm, normal S1 and S2, no murmurs. Lungs: Clear to auscultation with no wheezing or crackles. Abdomen: Significant ventral abdominal hernia, reducible. Soft, nontender, positive bowel sounds. ?No guarding or rebound tenderness. Neurologic: Alert and oriented x3, no gross neurological deficit, and patient able to move all 4 extremities. Strength 5/5 upper and lower extremities. No upper extremity tremor noted with outstretched arms. Extremities: No edema. Skin: No rash or ecchymoses. Objective Labs 08/06/25 05:28 08/06/25 05:28 Labs: Laboratory Results - last 24 hr 08/05/25 04:59 WBC 5.2 RBC 4.47 L Hgb 15.0 Hct 43.9 MCV 98 MCH 33.6 MCHC 34.2 RDW Std Deviation 45.9 H Plt Count 115 L Neut % (Auto) 43 Lymph % (Auto) 30 [place] % (Auto) 20 H Eos % (Auto) 5 Baso % (Auto) 1 Neut # (Auto) 2.3 Lymph # (Auto) 1.6 [place] # (Auto) 1.1 H Eos # (Auto) 0.3 Baso # (Auto) 0.1 Immature Gran # (Auto) 0.01 H Absolute Nucleated RBC 0.00 Immature Gran % 0 Nucleated RBC % 0 Sodium 137 Potassium 3.6 D Chloride 106 Carbon Dioxide 21.0 Anion Gap 10 BUN 14 Creatinine 0.8 Estim Creat Clear Calc 103.9 eGFR > 60 BUN/Creatinine Ratio 18 Glucose 98 Calculated Osmolality 274 L Calcium 9.5 Corrected Calcium 9.6 Phosphorus 4.2 Magnesium 1.7 Total Bilirubin 1.8 H AST 103 H ALT 85 H Alkaline Phosphatase 99 Total Protein 8.8 H Albumin 3.9 Globulin 4.9 H Albumin/Globulin Ratio 0.8 L Quality Measures Quality Measures VTE prophylaxis Assessment & Plan Assessment Current Active Medications: Generic Name Dose Route Start Last Admin Trade Name Freq PRN Reason Stop Dose Admin Acetaminophen 650 mg 07/31/25 03:44 08/05/25 05:55 Acetaminophen 325 Mg Tablet PO 08/30/25 03:43 650 mg Q6HR PRN Administration PAIN (1-3) OR FEVER > 100.4 Chlordiazepoxide HCl 25 mg 08/05/25 10:11 Chlordiazepoxide Hcl 25 Mg Capsule PO 08/10/25 10:10 Q8HR PRN AGITATION OR ANXIETY Enoxaparin Sodium 40 mg 07/31/25 09:00 08/05/25 09:18 Enoxaparin Sod Inj 40 Mg/0.4 Ml Syringe SC 08/14/25 08:59 40 mg QDAY KELLY Administration Folic Acid 1 mg 07/31/25 00:10 08/05/25 09:18 Folic Acid Inj 1 Mg/0.2 Ml IVP 08/30/25 00:09 1 mg QDAY KELLY Administration Lactulose 30 gm 08/04/25 21:00 08/05/25 09:17 Lactulose Syrup 20 Gm/30 Ml Udc PO 09/03/25 20:59 30 gm BID KELLY Administration Protocol Lorazepam 2 mg 07/31/25 01:29 Lorazepam 2 Mg/Ml Vial IVP Q5MIN PRN seizure breakthrough Polyethylene Glycol 17 gm 07/31/25 11:45 08/05/25 09:18 Polyethylene Glycol 17 Gm Packet PO 08/30/25 11:44 17 gm QDAY KELLY Administration Potassium Chloride 20 meq 08/05/25 16:00 Potassium Chloride 20 Meq Tabcr PO 08/05/25 16:01 X1 ONE Rifaximin 550 mg 08/04/25 21:00 08/05/25 09:17 Rifaximin 550 Mg Tablet PO 08/11/25 20:59 550 mg BID KELLY Administration Thiamine HCl 100 mg 07/31/25 09:00 08/05/25 09:19 Thiamine Inj 100 Mg/Ml Vial 2 Ml IVP 08/30/25 08:59 100 mg QDAY KELLY Administration Plan 60-year-old male with past medical history of alcohol use disorder and questionable seizure disorder who presented to the ED on 07/31/2025 after two witnessed tonic-clonic seizures at home, admitted for alcohol withdrawal protocol and neurology was consulted for further management of seizures. #Alcohol withdrawal seizures Patient came in with tonic-clonic seizures witnessed by sister, self aborted after 2 minutes. Reportedly on seizure medication with poor compliance but also had history of alcohol withdrawal seizures, often these patients will be started on seizure medication without epilepsy condition. Additionally, seizure medication itself when stopped can cause seizures in non-epileptic patients. Keppra itself may also cause agitation. Keppra was stopped since 08/04/2025. Repeat EEG 08/01: Negative for epileptiform discharges -Monitor for seizures in the next 24 hours -Agree with downtitrating Librium -Monitor CIWA #History of alcohol use disorder Patient drinks 6 pack of beer daily. -Continue thiamine and folate -Recommend rehab following discharge #Acute hepatic encephalopathy, resolving #Hyperammonemia, resolving Patient has been not at baseline with agitation episodes, lethargy, and confusion this admission. Ammonia level was 60. -Continue with lactulose titrated to 2-3 BMs daily Rest of conditions to continue current management per primary team: #Alcohol related liver disease #Elevated LFTs #Hyperbilirubinemia #Thrombocytopenia #Type 1 AV block #Umbilical hernia Patient was discussed with the Neurology attending, Dr. Chacon. Thank you for allowing us to participate in the care of this patient. Milady Umaña, PGY-3 Attending Provider Attestation/Addendum I personally have seen and examined the patient at the bedside and agree with resident's findings, assessment and plan of care. As the repeat EEG showed no epileptiform discharges, and his seizures are secondary to alcohol withdrawal, we will discontinue Keppra and watch him for 24 to 48 hours for any recurrence before discharge. Continue with the thiamine and folate and monitor him for alcohol withdrawal. Needs to be given resources for alcohol rehab upon discharge.
[2025-08-05] MEDS: ONDANSETRON INJ 2 MG/ML INJ 2 ML 4 MG IVP (20:38)
[2025-08-06] VITALS: BP 118/85; PULSE 103; PULSE 91; RESP 20; TEMP 36.5; O2SAT 99
[2025-08-06 04:00] VITALS: BP 139/89; PULSE 102; PULSE 103; RESP 15; TEMP 36.6; O2SAT 99
[2025-08-06 06:00] VITALS: BMI 23.9
[2025-08-06] MEDS: ONDANSETRON INJ 2 MG/ML INJ 2 ML 4 MG IVP (06:23)
[2025-08-06 06:39] LABS: Basophils # (Auto) 0.0 Thou/mm3 (0.0-0.2); Basophils % (Auto) 1 % (0-2.5); Eosinophils # (Auto) 0.0 Thou/mm3 (0.0-0.5); Eosinophils % (Auto) 0 % (0-10); Hematocrit 48.5 % (41.0-53.0); Hemoglobin 16.6 g/dL (13.5-16.0); Immature Granulocytes Auto 0.01 Thou/mm3 (0.00-0.00); Lymphocytes # (Auto) 0.7 Thou/mm3 (1.0-4.8); Lymphocytes % (Auto) 11 % (10-50); Mean Corpuscular HGB Conc 34.2 g/dl (31.0-37.0); Mean Corpuscular Hemoglobin 33.5 pg (25.0-35.0); Mean Corpuscular Volume 98 fL (80-100); Monocytes # (Auto) 0.9 Thou/mm3 (0.0-0.8); Monocytes % (Auto) 15 % (0-12); Neutrophils # (Auto) 4.5 Thou/mm3 (1.8-7.7); Neutrophils % (Auto) 72 % (37-80); Nucleated Red Blood Cell # 0.00 Thou/mm3 (0.00-0.00); Nucleated Red Blood Cell % 0 /100 WBC (0); Platelet Count 124 Thou/mm3 (140-440); RDW Standard Deviation 45.3 fL (35.1-43.9); Red Blood Count 4.96 Miln/mm3 (4.50-5.90); White Blood Count 6.1 Thou/mm3 (3.8-10.6)
[2025-08-06 07:02] LABS: Alanine Aminotransferase 90 U/L (10-49); Albumin, Serum 4.3 gm/dL (3.5-5.0); Albumin/Globulin Ratio 0.8 (1.2-2.2); Alkaline Phosphatase 99 U/L (46-116); Anion Gap 15 (7-16); Aspartate Amino Transferase 97 U/L (0-34); BUN/Creatinine Ratio 18 Ratio (12-20); Bilirubin,Total 1.5 mg/dL (0.3-1.2); Blood Urea Nitrogen 18 mg/dL (9-23); Calcium 10.0 mg/dL (8.3-10.6); Calcium (Corrected) 10.0 mg/dL (8.5-10.1); Carbon Dioxide 20.3 mMol/L (20.0-31.0); Chloride 101 mMol/L (98-107); Creatinine (Component) 1.0 mg/dL (0.6-1.3); Estimated Creatinine Clearance 83.1 mL/min (>60); Globulin 5.1 gm/dL (2.3-3.5); Glucose 137 mg/dL (74-106); Magnesium 2.0 mg/dL (1.6-2.6); Osmolality,Calculated 275 (275-295); Phosphorous 4.0 mg/dL (2.4-5.1); Potassium 4.1 mMol/L (3.4-5.1); Sodium 136 mMol/L (136-145); Total Protein 9.4 gm/dL (5.7-8.2); eGFR > 60 See Note
[2025-08-06 08:00] VITALS: BP 129/101; PULSE 117; PULSE 99; RESP 21; TEMP 36.5; O2SAT 93
[2025-08-06] MEDS: Magnesium Sulfate 2 GM Ivpb 2 GM/50 ML BAG IV (08:13)
[2025-08-06] MEDS: ENOXAPARIN SOD INJ 40 MG/0.4 ML SYRINGE SC (08:14)
[2025-08-06] MEDS: LACTULOSE SYRUP 20 GM/30 ML UDC 30 GM PO (08:14)
[2025-08-06] MEDS: PANTOPRAZOLE 40 MG TABLET PO (08:14)
[2025-08-06] MEDS: MAGNESIUM OXIDE 400 MG TABLET PO (08:14)
[2025-08-06] MEDS: POLYETHYLENE GLYCOL 17 GM PACKET PO (08:14)
[2025-08-06 12:00] VITALS: BP 125/100; PULSE 107; PULSE 110; RESP 13; TEMP 36.4; O2SAT 95
--- NOTE | 2025-08-06 14:25 | ESDS_ITS ---
<Statement entered by Laurel Palmer DO - 08/07/25 07:49> I, Laurel Palmer DO, attest that I was physically present for the hogan portions of the service and evaluated the patient with the resident and I reviewed and discussed the case with the resident and agree with the resident's findings and plans of care as documented above <Statement entered by Alberto Garduno MD - 08/06/25 16:12> Note reviewed and agree with care plan as documented. Please refer to the note below for further details. Plan discussed with attending physician Dr. Estela Garduno MD PGY-2 Internal Medicine Planned Discharge Date 08/06/25 DS: Providers Provider Date of admission: 07/31/25 00:02 Primary care physician: Physician No Primary/Family Admitting Provider: Noemi Smith MD Attending Provider on Admission: Laurel Palmer DO Consults: 07/31/25 00:13 Consult to Neurology / Tele-Neurology Stat Comment: SEIZURES Consulting Provider: Trino Chacon 07/31/25 03:53 Referral Respiratory Therapy Routine Comment: 08/02/25 14:49 Consult to Cardiology Routine Comment: Consulting Provider: Randell Zavala 08/06/25 13:36 PT [Referral Physical Therapy] Stat Comment: Physician Instructions: Attending Provider on DC: Zaki Lovelace MD Discharging Provider: Zaki Lovelace MD DS: Diagnosis Discharge Diagnosis (1) Alcohol withdrawal: Status: Acute Qualifiers: Complication of substance-induced condition: uncomplicated Qualified Code(s): F10.930 - Alcohol use, unspecified with withdrawal, uncomplicated Assessment & Plan: EEG noncontributory likely due to alcohol abuse and withdrawal Dr. Trino Chacon(neurology) consulted, started but eventually discontinued Keppra 500 Ammonia 60 uMol/L on admission -Plan discussed with patient the need for tapering and abstinence from alcohol abuse, Mr. Singh demonstrated understanding -Thiamine and folate supplementation to continue -Lactulose prescribed for completion outpt 20 BID (2) Recurrent seizures: Status: Acute Assessment & Plan: Questionable seizure history complicated by patient reported noncompliance plan as above (3) Alcohol withdrawal seizure: Status: Acute Qualifiers: Complication of substance-induced condition: with delirium Qualified Code(s): F10.931 - Alcohol use, unspecified with withdrawal delirium; R56.9 - Unspecified convulsions Problem List Completed Was Problem List Reviewed/Reconciled?: Yes Hospital Course Hospital Course Hospital course: Mr. Luke Singh is a 60M w/ PMH of alcohol abuse who came in to [facility] for reported tonic-clonic seizures that were aborted with pharmaceutical intervention. Pt was admitted 07/31/2025 and evaluated for seizures with consultations to neurology. He has remained stable and seizure prophylaxis(keppra 500mg) was discontinued without event. Additional cardiac workup was done: EKG showed 1st degree block([place] ~222ms) and prolonged QTc ~500ms; Dr. Randell Zavala(cardiology) was consulted and reviewed labs. An echocardiogram was performed which did not demonstrate any valvular nor chamber concerns, with normal LVEF(~50/55%). Strict Magnesium and phosphate monitoring and repletion were done for Mr. Singh, and careful medication administration and review was done. Throughout his stay Mr. Singh did not endorse any auditory, visual nor tactile hallucinations. His CIWA score demonstrated minimal to no withdrawal. In light of his clinical improvement to baseline as well as negative workup for cardiac, infectious, neurological and other systems-based sources of his seizures he was discharged home safely with strict return precautions and counseling on alcohol tapering and abstinence. Status at Discharge Cognitive/behavioral status at discharge: Normal, at baseline Time Spent with Patient Time attestation: Total time spent providing and/or coordinating discharge services: 75 minutes Time spent: Greater than 30 minutes Exam Vital Signs Temp Pulse Resp BP Pulse Ox O2 Del Method O2 Flow Rate 97.5 F 107 H 13 125/100 H 95 Room Air 1 08/06/25 12:08/06/25 12:08/06/25 12:08/06/25 12:08/06/25 12:08/06/25 12:08/01/25 20:11 Constitutional Constitutional: no acute distress Routine HEENT Exam Head: Present normocephalic and atraumatic Routine Respiratory Exam Respiratory: Present chest non-tender, lungs clear and normal breath sounds Routine Cardiovascular Exam Cardiovascular: Present RRR Routine Abdominal Exam Abdominal: Present soft and normoactive bowel sounds Routine Extremities Exam Extremities: Present full ROM and normal capillary refill Routine Skin Exam Skin: Present intact Routine Neurological Exam Neurological: Present alert, oriented X3 and CN II-XII intact Routine Psychiatric Exam Psychiatric: Present normal affect and normal thought process Discharge Plan Plan Patient Disposition: HOME (Self Care) Patient condition on transfer: Stable Care Plan Goals: ? Continue taking all other home medications as prescribed - We recommend complete abstinence from alcohol, resources to help you were provided by the social media community manager ? Follow-up with PCP within 1-2 weeks of discharge ? If you do not have a PCP, you can follow-up at the [facility] (you can call [phone] to make an appointment) ? Return to ED if symptoms worsen or recur ? Strictly prohibited from driving or use of heavy machinery Prescriptions/Referrals Prescriptions/Med Rec: New lactulose 20 gram packet 30 g PO BID 30 Days Qty: 60 0RF Referrals: No Primary/Family,Physician [Primary Care Provider] Patient/Caregiver Discharge Instructions Discharge Activity: resume usual activities Education Materials: Alcohol Withdrawal: What to Expect Print Language: Albanian Stand Alone Forms: Marissa Award Info., Patient Portal Info Letter Discharge Order Discharge Orders: Discharge (Routine); Ordered 08/06/25 Ordered By: Alberto Garduno Quality Discharge Quality Measures none Attestestation Attestation Plan discussed with Dr. Palmer. Zaki Lovelace MD, PGY-1
--- NOTE | 2025-08-06 14:52 | ESPR_ITS ---
Documentation for date of: 08/06/25 Subjective Subjective Interval history: Patient was seen at bedside this afternoon. Patient did not have any new seizures. He was interactive, but overly interested in adjusting his telemetry box. Patient again has speech that is difficult to understand. CIWA has remained about 5, not likely to be in withdrawal anymore. Patient can be discharged, Keppra discontinued. Exam Vital Signs Temp Pulse Resp BP Pulse Ox O2 Del Method O2 Flow Rate 97.5 F 107 H 13 125/100 H 95 Room Air 1 08/06/25 12:00 08/06/25 12:00 08/06/25 12:00 08/06/25 12:00 08/06/25 12:00 08/06/25 12:00 08/01/25 20:11 Narrative Exam Physical Exam General: Awake and in no acute distress. Conversational however speech somewhat difficult to understand, disheveled appearing. HEENT: Normocephalic, atraumatic, mucous membranes moist. Heart: Regular rate and rhythm, normal S1 and S2, no murmurs. Lungs: Clear to auscultation with no wheezing or crackles. Abdomen: Significant ventral abdominal hernia, reducible. Soft, nontender, positive bowel sounds. ?No guarding or rebound tenderness. Neurologic: Alert and oriented x3, no gross neurological deficit, and patient able to move all 4 extremities. Strength 5/5 upper and lower extremities. No upper extremity tremor noted with outstretched arms. Extremities: No edema. Skin: No rash or ecchymoses. Objective Labs 08/06/25 05:28 08/06/25 05:28 Labs: Laboratory Results - last 24 hr 08/06/25 05:28 WBC 6.1 RBC 4.96 Hgb 16.6 H Hct 48.5 MCV 98 MCH 33.5 MCHC 34.2 RDW Std Deviation 45.3 H Plt Count 124 L Neut % (Auto) 72 Lymph % (Auto) 11 [place] % (Auto) 15 H Eos % (Auto) 0 Baso % (Auto) 1 Neut # (Auto) 4.5 Lymph # (Auto) 0.7 L [place] # (Auto) 0.9 H Eos # (Auto) 0.0 Baso # (Auto) 0.0 Immature Gran # (Auto) 0.01 H Absolute Nucleated RBC 0.00 Immature Gran % 0 Nucleated RBC % 0 Sodium 136 Potassium 4.1 D Chloride 101 Carbon Dioxide 20.3 Anion Gap 15 BUN 18 Creatinine 1.0 Estim Creat Clear Calc 83.1 eGFR > 60 BUN/Creatinine Ratio 18 Glucose 137 H Calculated Osmolality 275 Calcium 10.0 Corrected Calcium 10.0 Phosphorus 4.0 Magnesium 2.0 Total Bilirubin 1.5 H AST 97 H ALT 90 H Alkaline Phosphatase 99 Total Protein 9.4 H Albumin 4.3 Globulin 5.1 H Albumin/Globulin Ratio 0.8 L Quality Measures Quality Measures VTE prophylaxis Assessment & Plan Assessment Current Active Medications: Generic Name Dose Route Start Last Admin Trade Name Freq PRN Reason Stop Dose Admin Acetaminophen 650 mg 07/31/25 03:44 08/05/25 15:46 Acetaminophen 325 Mg Tablet PO 08/30/25 03:43 650 mg Q6HR PRN Administration PAIN (1-3) OR FEVER > 100.4 Enoxaparin Sodium 40 mg 07/31/25 09:00 08/06/25 08:14 Enoxaparin Sod Inj 40 Mg/0.4 Ml Syringe SC 08/14/25 08:59 40 mg QDAY KELLY Administration Folic Acid 1 mg 07/31/25 00:10 08/05/25 09:18 Folic Acid Inj 1 Mg/0.2 Ml IVP 08/30/25 00:09 1 mg QDAY KELLY Administration Lactulose 30 gm 08/04/25 21:00 08/06/25 08:14 Lactulose Syrup 20 Gm/30 Ml Udc PO 09/03/25 20:59 30 gm BID KELLY Administration Protocol Lorazepam 2 mg 07/31/25 01:29 Lorazepam 2 Mg/Ml Vial IVP Q5MIN PRN seizure breakthrough Magnesium Oxide 400 mg 08/06/25 09:00 08/06/25 08:14 Magnesium Oxide 400 Mg Tablet PO 09/05/25 08:59 400 mg QDAY KELLY Administration Ondansetron HCl 4 mg 08/06/25 06:16 08/06/25 06:23 Ondansetron Inj 2 Mg/Ml Inj 2 Ml IVP 09/05/25 06:15 4 mg Q6HR PRN Administration NAUSEA OR VOMITING Protocol Pantoprazole Sodium 40 mg 08/06/25 09:00 08/06/25 08:14 Pantoprazole 40 Mg Tablet PO 09/05/25 08:59 40 mg QDAY KELLY Administration Polyethylene Glycol 17 gm 07/31/25 11:45 08/06/25 08:14 Polyethylene Glycol 17 Gm Packet PO 08/30/25 11:44 17 gm QDAY KELLY Administration Rifaximin 550 mg 08/04/25 21:00 08/06/25 08:14 Rifaximin 550 Mg Tablet PO 08/11/25 20:59 550 mg BID KELLY Administration Thiamine HCl 100 mg 07/31/25 09:00 08/05/25 09:19 Thiamine Inj 100 Mg/Ml Vial 2 Ml IVP 08/30/25 08:59 100 mg QDAY KELLY Administration Plan 60-year-old male with past medical history of alcohol use disorder and questionable seizure disorder who presented to the ED on 07/31/2025 after two witnessed tonic-clonic seizures at home, admitted for alcohol withdrawal protocol and neurology was consulted for further management of seizures. #Alcohol withdrawal seizures Patient came in with tonic-clonic seizures witnessed by sister, self aborted after 2 minutes. Reportedly on seizure medication with poor compliance but also had history of alcohol withdrawal seizures, often these patients will be started on seizure medication without epilepsy condition. Additionally, seizure medication itself when stopped can cause seizures in non-epileptic patients. Keppra itself may also cause agitation. Keppra was stopped since 08/04/2025. Repeat EEG 08/01: Negative for epileptiform discharges -Patient has been seizure-free off Keppra last 48 hours -Patient to work with PT and able to be discharged -No need for Keppra on discharge -Continue alcohol abstinence #History of alcohol use disorder Patient drinks 6 pack of beer daily. -Continue thiamine and folate -Recommend rehab following discharge #Acute hepatic encephalopathy, resolving #Hyperammonemia, resolving Patient has been not at baseline with agitation episodes, lethargy, and confusion this admission. Ammonia level was 60. -Continue with lactulose titrated to 2-3 BMs daily Rest of conditions to continue current management per primary team: #Alcohol related liver disease #Elevated LFTs #Hyperbilirubinemia #Thrombocytopenia #Type 1 AV block #Umbilical hernia Patient was discussed with the Neurology attending, Dr. Chacon. Thank you for allowing us to participate in the care of this patient. Milady Umaña, PGY-3 Attending Provider Attestation/Addendum I personally have seen and examined the patient at the bedside and agreed with resident's findings, assessment and plan of care. Patient mental status is improving and is back to baseline. His speech is hard to understand, no seizures reported. Stable for discharge from neurology standpoint to alcohol rehab center without any Keppra on board.
--- NOTE | 2025-08-06 15:46 | PC.SS ---
Patient needs a FWW for home. The diagnosis creates mobility limitation that significantly impairs ability to participate in the patients activities of daily living either in their entirety, or in a reasonable time frame. Also the patient is able to safely use the walker and the patient?s mobility is sufficiently resolved with the use of the walker and cane has been ruled out.
--- NOTE | 2025-08-06 15:47 | PC.SS ---
Follow up- note: SS spoke to patient's sister, Nancy, regarding discharge plans. Nancy agreed to take patient home with her. She wanted to know of what resources are available to her. SS left resource packet in room. Discussed [facility] , [facility] and home health services. Patient does not have a p.c.p. They will need to get patient established with a p.c.p. of their choice. Once completed appt. they can ask for home health order/services. Family to burr picker patient today.
[2025-08-06 16:00] VITALS: BP 113/76; PULSE 105; PULSE 72; RESP 25; TEMP 35.9; O2SAT 100
--- NOTE | 2025-08-06 18:02 | ESPR_ITS ---
Documentation for date of: 08/06/25 Subjective Subjective Interval history: The patient is a 60-year-old male with a past medical history of seizures, currently on Keppra (levetiracetam) for seizure management, but with a history of medication noncompliance. He also has a history of alcohol use, and was recently living homeless before staying with his sister. The patient presented to [facility] on 07/31/2025 after experiencing two tonic-clonic seizures on the same day, both lasting approximately 2 minutes. The first seizure occurred in the morning while watching TV, and the second occurred later in the afternoon. Notable symptoms preceding the seizures included nausea and vomiting (4 episodes). The patient was postictal after the second seizure, presenting with confusion and urinary incontinence. After the seizure, the patient reported shortness of breath, but denied any other symptoms. According to the patient's sister, he has not been following up with medical appointments for the last 3 weeks and has been noncompliant with his seizure medications during this time. ED Course: Initial Vitals: Temperature: 98?F,Blood Pressure: 175/109 mmHg , Heart Rate: 108 bpm ,Respiratory Rate: 18 breaths/min, Oxygen Saturation: 98% on room air Notable Labs:WBC: Normal,Platelets: 67 (low, potentially indicating thrombocytopenia or alcohol-related liver dysfunction),Sodium: 132 (mild hyponatremia),Creatinine: 0.6 (normal),T. Bilirubin: 2.6 (elevated, suggests possible liver dysfunction or hemolysis),D. Bilirubin: 0.9 (elevated),AST: 104 (elevated, suggests liver injury or alcohol-related damage),ALT: 51 (elevated, though less concerning than AST),CK (Creatine Kinase): 935 (elevated, possibly due to muscle injury from seizures),Troponin: Negative (no evidence of myocardial injury),Vitamin B12: 802 (normal),Urine Toxicology: Positive for benzodiazepines, which may have been administered in the ED.D-dimer: 652 (elevated, but no evidence of pulmonary embolism on CTPA) Imaging:CTPA: No evidence of pulmonary thromboembolism (PE) ED Treatment: Keppra 2.5 g IV Lactated Ringer?s 1L for hydration Magnesium sulfate 2g IV (likely for seizure prophylaxis or correcting hypomagnesemia) Lorazepam 2 mg IV (for seizure control) Past medical history as above Past surgical history none Allergies ibuprofen Medication Kepp Family history denies any family history of heart problems, diabetes,Hypertension Social history drinks 6 packs of 24 ounces daily, denies smoking or any illicit drug use. Hospital Course: QTc Prolongation: Noted QTc prolongation of about 500 ms on telemetry, which is concerning for potential arrhythmias. Electrolyte Imbalance: Hypokalemia and hypomagnesemia, likely exacerbated by alcohol use, seizure activity, and possible poor nutritional intake. Telemetry: The patient was noted to have type I AV block with a FL interval of 22, which may be related to electrolyte abnormalities or medications. The patient denied any symptoms of chest pain, shortness of breath, or palpitations. Cardiology Consult: Due to the QTc prolongation and electrolyte disturbances, a cardiology consultation was requested for further management recommendations. 08/03/2025-patient was seen at bedside and he denies any chest pain, chest palpitations, shortness of breath. He required physical restraints overnight for his increased agitation secondary to alcohol withdrawal and currently on CIWA protocol. No abnormal rhythms noted overnight. blood pressure is around 130s over 90s, pulse rate around 90s. Potassium is 4 and magnesium 1.9 08/04/2025: Labs reviewed and patient examined at the bedside. CIWA score ranging from 3 to 4. No abnormal rhythms overnight. Continue manage electrolyte disturbances. Denies chest pain, palpation, SOB, abdominal pain, N/V, fevers or chills. 08/05/2025: Labs reviewed and patient examined at the bedside. Patient's Potassium 4.6, Mag 1.7, and phos4.2. Gave patient K+ 40meq PO x1 and 20meq po x1 at 4pm, Mag IV 4g Denies chest pain, palpation, SOB, abdominal pain, N/V, fevers or chills. 08/06/2025: No Overnight events. Labs reviewed and patient examined at the bedside. Gave Mag IV 2g x1 and Ordered Mag 400mg po qd. Denies chest pain, palpation, SOB, abdominal pain, N/V, fevers or chills. Exam Vital Signs Temp Pulse Resp BP Pulse Ox O2 Del Method O2 Flow Rate 96.7 F L 72 25 H 113/76 100 Room Air 1 08/06/25 16:00 08/06/25 16:00 08/06/25 16:00 08/06/25 16:00 08/06/25 16:00 08/06/25 16:00 08/01/25 20:11 Narrative Exam General: AOx3, no acute distress, able to speak full sentences, poor oral hygiene HEENT: NC/AT, mucous membranes moist, Cardiovascular: regular rate and rhythm, S1/S2 present, no murmurs appreciated Pulmonary: clear to auscultation bilaterally, no rales/rhonchi/wheezes Abdominal: soft, non-tender, mild distention, umbilical hernia, no rebound/guarding, normal bowel sounds present Musculoskeletal: normal ROM, no peripheral edema Skin: warm and dry, intact, no rashes, Neuro: CN II-XII intact, no focal deficits Objective Labs 08/06/25 05:28 08/06/25 05:28 Labs: Laboratory Results - last 24 hr 08/06/25 05:28 WBC 6.1 RBC 4.96 Hgb 16.6 H Hct 48.5 MCV 98 MCH 33.5 MCHC 34.2 RDW Std Deviation 45.3 H Plt Count 124 L Neut % (Auto) 72 Lymph % (Auto) 11 [place] % (Auto) 15 H Eos % (Auto) 0 Baso % (Auto) 1 Neut # (Auto) 4.5 Lymph # (Auto) 0.7 L [place] # (Auto) 0.9 H Eos # (Auto) 0.0 Baso # (Auto) 0.0 Immature Gran # (Auto) 0.01 H Absolute Nucleated RBC 0.00 Immature Gran % 0 Nucleated RBC % 0 Sodium 136 Potassium 4.1 D Chloride 101 Carbon Dioxide 20.3 Anion Gap 15 BUN 18 Creatinine 1.0 Estim Creat Clear Calc 83.1 eGFR > 60 BUN/Creatinine Ratio 18 Glucose 137 H Calculated Osmolality 275 Calcium 10.0 Corrected Calcium 10.0 Phosphorus 4.0 Magnesium 2.0 Total Bilirubin 1.5 H AST 97 H ALT 90 H Alkaline Phosphatase 99 Total Protein 9.4 H Albumin 4.3 Globulin 5.1 H Albumin/Globulin Ratio 0.8 L Quality Measures Quality Measures none Assessment & Plan Assessment Current Active Medications: Generic Name Dose Route Start Last Admin Trade Name Freq PRN Reason Stop Dose Admin Acetaminophen 650 mg 07/31/25 03:44 08/05/25 15:46 Acetaminophen 325 Mg Tablet PO 08/30/25 03:43 650 mg Q6HR PRN Administration PAIN (1-3) OR FEVER > 100.4 Enoxaparin Sodium 40 mg 07/31/25 09:00 08/06/25 08:14 Enoxaparin Sod Inj 40 Mg/0.4 Ml Syringe SC 08/14/25 08:59 40 mg QDAY KELLY Administration Folic Acid 1 mg 07/31/25 00:10 08/05/25 09:18 Folic Acid Inj 1 Mg/0.2 Ml IVP 08/30/25 00:09 1 mg QDAY KELLY Administration Lactulose 30 gm 08/04/25 21:00 08/06/25 08:14 Lactulose Syrup 20 Gm/30 Ml Udc PO 09/03/25 20:59 30 gm BID KELLY Administration Protocol Lorazepam 2 mg 07/31/25 01:29 Lorazepam 2 Mg/Ml Vial IVP Q5MIN PRN seizure breakthrough Magnesium Oxide 400 mg 08/06/25 09:00 08/06/25 08:14 Magnesium Oxide 400 Mg Tablet PO 09/05/25 08:59 400 mg QDAY KELLY Administration Ondansetron HCl 4 mg 08/06/25 06:16 08/06/25 06:23 Ondansetron Inj 2 Mg/Ml Inj 2 Ml IVP 09/05/25 06:15 4 mg Q6HR PRN Administration NAUSEA OR VOMITING Protocol Pantoprazole Sodium 40 mg 08/06/25 09:00 08/06/25 08:14 Pantoprazole 40 Mg Tablet PO 09/05/25 08:59 40 mg QDAY KELLY Administration Polyethylene Glycol 17 gm 07/31/25 11:45 08/06/25 08:14 Polyethylene Glycol 17 Gm Packet PO 08/30/25 11:44 17 gm QDAY KELLY Administration Rifaximin 550 mg 08/04/25 21:00 08/06/25 08:14 Rifaximin 550 Mg Tablet PO 08/11/25 20:59 550 mg BID KELLY Administration Thiamine HCl 100 mg 07/31/25 09:00 08/05/25 09:19 Thiamine Inj 100 Mg/Ml Vial 2 Ml IVP 08/30/25 08:59 100 mg QDAY KELLY Administration Plan 60-year-old male with past medical history of seizure disorder and alcohol use was admitted for alcohol withdrawal/seizure disorder treatment and management. Hospital course was notable for QTc prolongation and type I AV block with FL of 22. Cardiology was consulted for further evaluation. 1. Abnormal EKG with QTc prolongation 2. Type I AV block 3. Electrolyte abnormality including hypokalemia and hypomagnesemia 4. Essential Hypertension 5. Seizure disorder 6. Alcohol use On consultion, evaluation notable finding was QTc prolongation to more than 500, which was concerning for the potential development of arrhythmia. Electrolyte imbalances, including hypokalemia and hypomagnesemia, both can contribute to arrhythmias and further prolongation of QTc. On telemetry the patient had episode of type I AV block with FL interval of 222, patient denies any symptoms of chest pain, shortness of breath or palpitation. This might be related to the electrolyte disbalance or could be medication effect, The patient vital signs currently are stable. Recommendations 1. Electrolyte correction: Potassium and magnesium repletion are essential, keep magnesium above 2 and potassium above 4, monitor electrolytes replace as needed 2. QTc prolongation management: Monitor for any arrhythmias, aggressively replace magnesium IV to prevent any further QTc prolongation.Continue to avoid medications that prolong the QT interval.Reviewed the EKG and patient does have normal sinus rhythm or sinus tachycardia with right bundle branch block. Patient QTc actually is actually not significantly prolonged considering the RBBB and also patient does have hypokalemia and hypomagnesemia which could both contribute to the prolonged QTc. 3. No active management is required for type I AV block 4. Patient had episode of hypertension and tachycardia most likely in the setting of alcohol withdrawal, monitor vital signs 5. Alcohol dependence. Counseling Assessment and plan discussed with my attending physician Dr. Sally Lucas (PGY-1) - Internal medicine resident Attending Provider Attestation/Addendum I have personally seen and examined the patient separately on the above date of service and discussed the plan of care with the resident. I reviewed the resident Dr. Ron Lucas consultation progress note and agree with the resident findings and plan in the note above and have also edited the documentation to reflect my findings and plan. Randell Zavala M.D. Interventional Cardiology
== END 2025-08-06 18:02 | disposition home or self-care (01) | DRG 775 ==
LOC: SERX 23:47 → SERHOLD 07-31 01:00 → S2NX 07-31 02:24
PROVIDERS: Emergency Medicine; Admitting Provider Student in an Organized Health Care Education/Training Program; Emergency Provider Emergency Medicine; Visit Provider Internal Medicine
DX: F10.231 Alcohol dependence with withdrawal delirium (principal); E87.1 Hypo-osmolality and hyponatremia; G40.409 Other generalized epilepsy and epileptic syndromes, not intractable, without status epilepticus; Z91.148 Patient's other noncompliance with medication regimen for other reason; I10 Essential (primary) hypertension; Y90.0 Blood alcohol level of less than 20 mg/100 ml; D69.6 Thrombocytopenia, unspecified; Z78.1 Physical restraint status; E87.6 Hypokalemia; I44.1 Atrioventricular block, second degree; K76.0 Fatty (change of) liver, not elsewhere classified; K42.9 Umbilical hernia without obstruction or gangrene; I45.10 Unspecified right bundle-branch block; E83.42 Hypomagnesemia; G92.8 Other toxic encephalopathy; K74.60 Unspecified cirrhosis of liver; R09.02 Hypoxemia; I85.10 Secondary esophageal varices without bleeding; K76.82 Hepatic encephalopathy; K82.8 Other specified diseases of gallbladder; Z79.899 Other long term (current) drug therapy; R65.10 Systemic inflammatory response syndrome (SIRS) of non-infectious origin without acute organ dysfunction; Z88.6 Allergy status to analgesic agent
CPT/HCPCS: 36415; 70450; 71275; 76705; 80053; 80074; 80177; 80307; 80320; 81001; 82140; 82248; 82436; 82550; 82607; 82746; 83735; 84100; 84133; 84145; 84300; 84443; 84484; 85025; 85379; 85610; 85652; 85730; 86140; 87081; 93005; 93306; 95816; 96361; 96365; 96366; 96375; 96376; 97162; 99284; A4649; J1650; J1953; J2060; J2405; J3360; J3411; J3475; J3490; J7120; Q9967; A9270; G0480

== ENCOUNTER 2025-08-12 21:42 | Emergency (ER) | payer MEDICAID, SELFPAY ==
[2025-08-12 21:45] VITALS: BMI 30.4
[2025-08-12 22:20] VITALS: BP 108/72; PULSE 99; RESP 18; TEMP 36.7; O2SAT 98
--- NOTE | 2025-08-12 22:43 | PD.EDAMS ---
Altered Mental Status RME/HPI General Chief Complaint: General Adult/Misc Complain Stated Complaint: CONFUSED, DIZZINESS (LIVER ISSUE) Time Seen by Provider: 08/12/25 22:48 Arrival date/time: 08/12/25 21:42 RME / HPI RME / HPI narrative: See MDM for Dr. Rae's HPI documentation. Related Data Previous Rx's ?Medication ?Instructions ?Recorded lactulose 20 gram oral packet 30 g PO BID 30 days #60 ea 08/06/25 lactulose 10 gram/15 mL oral 20 g (30 mL) PO QID #3,785 mL 08/08/25 solution lactulose 10 gram/15 mL oral 20 g (30 mL) PO QID #3,785 mL 08/13/25 solution (Constulose) Allergies Allergy/AdvReac Type Severity Reaction Status Date / Time ibuprofen Allergy Intermediate Hives Verified 08/12/25 21:50 Review of Systems Review of Systems Systems Reviewed: All systems reviewed, normal except as documented ED Exam Narrative Physical exam: See MDM for Dr. Rae's physical exam documentation. Course Quality Measures none Orders Category Date Time Status CT head/brain wo con Stat Exams 08/12/25 22:54 Taken Alcohol, Blood Medical Stat Lab 08/12/25 23:50 Completed Ammonia Stat Lab 08/12/25 23:50 Completed Amylase Stat Lab 08/12/25 23:50 Completed BNP [B-Type Natriuretic Peptide] Stat Lab 08/12/25 23:50 Completed Bilirubin,Direct Stat Lab 08/12/25 23:50 Completed CBC Stat Lab 08/12/25 23:50 Completed CMP [Comprehensive Metabolic Panel] Stat Lab 08/12/25 23:50 Completed Drug Screen,Urine Stat Lab 08/12/25 23:16 Ordered Lipase Stat Lab 08/12/25 23:50 Completed Magnesium Stat Lab 08/12/25 23:50 Completed PT [Prothrombin Time with INR] Stat Lab 08/12/25 23:50 Completed PTT [Partial Thromboplastin Time] Stat Lab 08/12/25 23:50 Completed TSH [Thyroid Stimulating Hormone] Stat Lab 08/12/25 23:50 Completed Troponin I Stat Lab 08/12/25 23:50 Completed UA, C/S IF [Urinalysis, C/S if Indicated] Stat Lab 08/12/25 23:16 Ordered Magnesium Oxide [Mag-Ox 400] Med 08/13/25 02:46 Discontinued 800 mg PO X1 ONE Vital Signs Vital signs: Vital Signs Temperature 98.0 F 08/12/25 22:20 Pulse Rate 99 08/12/25 22:20 Respiratory Rate 18 08/12/25 22:20 Blood Pressure 108/72 08/12/25 22:20 Pulse Oximetry (%) 98 08/12/25 22:20 Oxygen Delivery Method Room Air 08/12/25 22:20 Altered Mental Status MDM Narrative MDM Narrative:: This section includes all my notes and documentations, including HPI, PE, and ED course. Herman Rae MD HPI: 60-year-old male here with difficulty balancing himself while walking x 1 week. No falls or injuries. ROS: All negative except as documented in HPI. Physical Exam: General: Alert and oriented. No acute distress when remaining still. Eyes: Conjunctivae and lids clear. ENT: No nasal congestion. Neck: Supple. Heart: RRR. Lungs: No respiratory distress. Good air movement. No rhonchi, wheezing, rales. Abdomen: Soft and nontender. Normal bowel sounds. No distension. No rebound or guarding. Back: No CVA tenderness. Skin: Warm and dry. Neuro: Alert and oriented X 3. I reviewed all diagnostic test results. My review of the CT head report is NAD. Blood tests remarkable for Mg 1.3, ASR 69, ALT 72, Alk Phos 219, Ammonia 71. At this point, diagnoses include: Increased ammonia level Hypomagnesemia Treatment here included: Magnesium 800 mg PO Significant improvement noted. Based on my best medical judgment, made decision no further evaluation or treatment indicated at this time. Patient understands and agrees to the discharge instructions customized and printed, see below. Discharge Instructions from Dr. Rae printed for you: 1. After extensive evaluation, there is no immediately life-threatening condition. Such as stroke or brain tumor or heart attack. 2. Your symptoms are most likely due to a high ammonia level (hepatic encephalopathy) and low magnesium level. See attached handouts. 3. To lower your ammonia level, take lactulose as prescribed. 4. To increase your magnesium level, take magnesium pills as prescribed. And increase food rich in magnesium. Such as green and leafy vegetables and peanuts and almonds and cashews. 5. See a private doctor on 08/14/2025 for recheck. Ask to review all test results and official radiology reports, to make sure you receive all necessary follow-ups and monitoring, including repeat ammonia and magnesium levels. Ask for help with MRI imaging of the brain and referral to see neurologist, to make sure there is no other serious condition. 6. Seek immediate medical care with worsening or with any concerns. Herman Rae MD Patient data External records reviewed:: [facility] previous records (Per chart review, patient was admitted here on 07/30/25 for alcohol withdrawal.) Clinical information provided by:: patient Social determinants that could affect healthcare access:: alcohol use (history of) Patient has the following chronic illnesses:: none How is presenting disease/condition affected by chronic disease/condition?: no chronic disease Evaluation data The following diagnostics were reviewed and interpreted by me:: lab results and radiology exam(s) Lab and/or radiology exams considered but not ordered:: none Interpretation Summary: I reviewed all diagnostic test results. My review of the CT head report is NAD. Blood tests remarkable for Mg 1.3, ASR 69, ALT 72, Alk Phos 219, Ammonia 71. Medications / Prescriptions Medications or Prescriptions considered but not ordered:: none Medication administrations:: Medication Administration History Discontinued Medications Magnesium Oxide (Magnesium Oxide 400 Mg Tablet) 800 mg PO X1 ONE Stop: 08/13/25 02:47 Magnesium 800 mg PO Consultations Consultation(s) initiated? (list below): No Diagnosis Most likely diagnosis given after review of the tests above:: Increased ammonia level Hypomagnesemia Admission Indicated Admission indicated?: not indicated Explain why admission is indicated or not indicated:: With significant improvement and no condition needing emergent intervention, there was no indication for admission. Admission Request Was there a request for admission?: No Disposition Plan Disposition Plan: Discharge Discharge Attestation Discharge Attestation: The patient and all family members were given an opportunity to ask questions and understood the discharge instructions. Discharge instructions specifically effects, indications for sooner follow up or return to the emergency department, and the expected course of current diagnosis. Patient condition: Stable Discharge Plan Plan Patient Disposition: HOME (Self Care) Prescriptions/Referrals Prescriptions/Med Rec: New lactulose [Constulose] 10 gram/15 mL solution 20 g PO QID Qty: 3785 0RF No Action lactulose 20 gram packet 30 g PO BID 30 Days Qty: 60 0RF lactulose 10 gram/15 mL solution 20 g PO QID Qty: 3785 0RF Referrals: No Primary/Family,Physician [Primary Care Provider] - In 1 week Problem List Clinical Impression: Increased ammonia level, Hypomagnesemia Patient/Caregiver Discharge Instructions Discharge Activity: activity as tolerated Education Materials: Magnesium (Blood), Hepatic Encephalopathy Additional Instructions: Discharge Instructions from Dr. Rae printed for you: 1. After extensive evaluation, there is no immediately life-threatening condition. Such as stroke or brain tumor or heart attack. 2. Your symptoms are most likely due to a high ammonia level (hepatic encephalopathy) and low magnesium level. See attached handouts. 3. To lower your ammonia level, take lactulose as prescribed. 4. To increase your magnesium level, take magnesium pills as prescribed. And increase food rich in magnesium. Such as green and leafy vegetables and peanuts and almonds and cashews. 5. See a private doctor on 08/14/2025 for recheck. Ask to review all test results and official radiology reports, to make sure you receive all necessary follow-ups and monitoring, including repeat ammonia and magnesium levels. Ask for help with MRI imaging of the brain and referral to see neurologist, to make sure there is no other serious condition. 6. Seek immediate medical care with worsening or with any concerns. Print Language: Croatian Stand Alone Forms: Marissa Award Info., Patient Portal Info Letter
--- NOTE | 2025-08-12 22:54 | XR_ITS ---
Examination: CT brain head without contrast. 2-D sagittal coronal reconstructions Date and time of exam: August 13, 2025, 0132 hours, comparison July 30, 2025 INDICATIONS: Ataxia beginning 1 week ago, with dizziness, altered mental status confusion CTDI: vol (mGy): 51 DLP: (mGycm): 1061 Technique: Multiple CT axial sections of the brain have been obtained, 5 mm slice thickness. Contrast has not been administered. 2-D sagittal, coronal reconstructions have been obtained Low dose protocols were performed. One or more of the following dose reduction techniques were used; automated exposure control, adjustment of the mA and/or KV according to patient size, use of iterative reconstruction technique. Findings: No significant ventricular enlargement. Moderate atrophy Intra-axial or extra-axial hemorrhage density is not seen. No mass effect or midline shift Basal cisterns are not remarkable. Fourth ventricle is midline. Cranial vault intact. Impression: Negative for acute hemorrhage, mass effect or midline shift As clinically warranted, consider brain MRI follow-up
[2025-08-12 23:58] VITALS: BP 124/79; PULSE 80; RESP 18; TEMP 36.6; O2SAT 97
[2025-08-12 23:58] LABS: Basophils # (Auto) 0.1 Thou/mm3 (0.0-0.2); Basophils % (Auto) 1 % (0-2.5); Eosinophils # (Auto) 0.2 Thou/mm3 (0.0-0.5); Eosinophils % (Auto) 3 % (0-10); Hematocrit 38.2 % (41.0-53.0); Hemoglobin 13.1 g/dL (13.5-16.0); Immature Granulocytes Auto 0.02 Thou/mm3 (0.00-0.00); Lymphocytes # (Auto) 1.3 Thou/mm3 (1.0-4.8); Lymphocytes % (Auto) 24 % (10-50); Mean Corpuscular HGB Conc 34.3 g/dl (31.0-37.0); Mean Corpuscular Hemoglobin 33.2 pg (25.0-35.0); Mean Corpuscular Volume 97 fL (80-100); Monocytes # (Auto) 0.8 Thou/mm3 (0.0-0.8); Monocytes % (Auto) 15 % (0-12); Neutrophils # (Auto) 3.0 Thou/mm3 (1.8-7.7); Neutrophils % (Auto) 56 % (37-80); Nucleated Red Blood Cell # 0.00 Thou/mm3 (0.00-0.00); Nucleated Red Blood Cell % 0 /100 WBC (0); Platelet Count 147 Thou/mm3 (140-440); RDW Standard Deviation 43.4 fL (35.1-43.9); Red Blood Count 3.95 Miln/mm3 (4.50-5.90); White Blood Count 5.4 Thou/mm3 (3.8-10.6)
[2025-08-13 00:23] LABS: INR 1.3 (0.9-1.3); Partial Thromboplastin Time 26.8 Seconds (22.0-36.0); Prothrombin Time 13.2 Seconds (9.0-12.2)
[2025-08-13 00:25] LABS: B-Type Natriuretic Peptide 34 pg/mL (0-100)
[2025-08-13 00:27] LABS: Ammonia 71 uMol/L (11-32)
[2025-08-13 00:35] LABS: Alanine Aminotransferase 72 U/L (10-49); Albumin, Serum 3.5 gm/dL (3.5-5.0); Albumin/Globulin Ratio 0.9 (1.2-2.2); Alcohol, Blood Medical < 3.0 mg/dL (0-10.0); Alkaline Phosphatase 219 U/L (46-116); Amylase 85 U/L (30-118); Anion Gap 11 (7-16); Aspartate Amino Transferase 69 U/L (0-34); BUN/Creatinine Ratio 6 Ratio (12-20); Bilirubin,Direct 0.3 mg/dL (0.0-0.3); Bilirubin,Total 0.7 mg/dL (0.3-1.2); Blood Urea Nitrogen 6 mg/dL (9-23); Calcium 8.4 mg/dL (8.3-10.6); Calcium (Corrected) 8.8 mg/dL (8.5-10.1); Carbon Dioxide 23.6 mMol/L (20.0-31.0); Chloride 105 mMol/L (98-107); Creatinine (Component) 1.0 mg/dL (0.6-1.3); Estimated Creatinine Clearance 88.1 mL/min (>60); Globulin 4.0 gm/dL (2.3-3.5); Glucose 86 mg/dL (74-106); Lipase 58 U/L (12-53); Magnesium 1.3 mg/dL (1.6-2.6); Osmolality,Calculated 276 (275-295); Potassium 3.5 mMol/L (3.4-5.1); Sodium 140 mMol/L (136-145); Thyroid Stimulating Hormone 1.44 uIU/mL (0.55-4.78); Total Protein 7.5 gm/dL (5.7-8.2); Troponin I < 0.020 ng/mL (0.0-0.045); eGFR > 60 See Note
--- NOTE | 2025-08-13 02:38 | PRELIM_ITS ---
CT scan of the head without intravenous contrast (axial sections with sagittal and coronal reformats) August 13, 2025 0132 hours Clinical history: Ataxia for a week Comparison: No prior study is available for comparison. Findings: There is no evidence of acute intracranial hemorrhage, mass effect or midline shift. There are periventricular white matter hypodensities, compatible with chronic small vessel ischemia. No definitive wedge shaped acute infarcts are detected. Please note that subtle early infarcts are better assessed using diffusion weighted MR imaging if clinically indicated. The CSF spaces are prominent consistent with moderate volume loss. There is atheromatous calcification of the intracranial arteries. The calvarium is unremarkable. The mastoid air cells and the visualized paranasal sinuses are clear. Impression: No evidence of acute intracranial hemorrhage, mass effect or midline shift. If there are persistent clinical symptoms or additional clinical concerns consider an MRI. Periventricular chronic small vessel ischemia and volume loss. Report Electronically Signed By: Massimo Esparza 08/13/2025 2:38:04 AM [EST]
[2025-08-13 03:06] VITALS: BP 124/79; PULSE 74; RESP 14; TEMP 36.7; O2SAT 98
[2025-08-13] MEDS: MAGNESIUM OXIDE 400 MG TABLET 800 MG PO (03:12)
[2025-08-13 04:05] VITALS: BP 133/91; PULSE 94; RESP 16; O2SAT 98
== END 2025-08-13 04:05 | disposition home or self-care (01) ==
PROVIDERS: Emergency Provider Emergency Medicine
DX: E83.42 Hypomagnesemia (principal); E72.20 Disorder of urea cycle metabolism, unspecified
CPT/HCPCS: 36415; 70450; 80053; 80307; 80320; 81001; 82140; 82150; 82248; 83690; 83735; 83880; 84443; 84484; 85025; 85610; 85730; 99283; A9270; G0480